=== PATIENT | male | born 1940 | race Caucasian/White ===

== ENCOUNTER 2017-06-09 00:03 | Inpatient (IN) | payer MEDICAID ==
--- NOTE | 2017-06-09 01:03 | ED Physician Chart ---
ED Chief Complaint/HPI - Patient Information Date Seen:: 06/09/17 Time Seen:: 00:40 Chief Complaint:: mass over the proximal clavicle History of Present Illness:: Asians had a painful mass overuse proximal left clavicle for last 1 month for which she's been seen at [facility]. Patient's apparently refusing to eat because of the pain associated with this mass. 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 Allergies:: Allergies Allergy/AdvReac Type Severity Reaction Status Date / Time No Known Allergies Allergy Verified 06/09/17 00:23 Vitals:: Vital Signs - 8 hr 06/09/17 00:05 Temp 98.7 F HR 98 RR 18 BP 111/62 O2 Sat % 96 Historian:: Patient Review:: Transfer documents Reviewed ED Review of Systems - Review of Systems General/Constitutional: No fever, No chills, No weight loss, No weakness, No diaphoresis, No edema, No loss of appetite Skin: No skin lesions, No rash, No bruising Head: No headache, No light-headedness Eyes: No loss of vision, No pain, No diplopia ENT: No earache, No nasal drainage, No sore throat, No tinnitus Neck: No neck pain, No swelling, No thyromegaly, No stiffness, No mass noted Cardio Vascular: No chest pain, No palpitations, No PND, No orthopnea, No edema Pulmonary: No SOB, No cough, No sputum, No wheezing, Other (see history and physical) GI: No nausea, No vomiting, No diarrhea, No pain, No melena, No hematochezia, No constipation, No hematemesis G/U: No dysuria, No frequency, No hematuria Musculoskeletal: No bone or joint pain, No back pain, No muscle pain Endocrine: No polyuria, No polydipsia Psychiatric: No prior psych history, No depression, No anxiety, No suicidal ideation Hematopoietic: No bruising, No lymphadenopathy Allergic/Immuno: No urticaria, No angioedema Neurological: No syncope, No focal symptoms, No weakness, No paresthesia, No headache, No seizure, No dizziness, No confusion, No vertigo ED Past Medical History - Past Medical History Past Medical History: HTN, DM, Asthma/COPD, Dementia Family History: Other (unavailable) Social History: Care Facility Surgical History: other (renal transplant; partial amputation left foot) Psychiatricy History: Dementia Family Medical History - Family Member Father History Unknown: Yes Ethnicity: Living Status: Hx Family Diabetes: Yes ED Physical Exam - Physical Examination General/Constitutional: Well-developed, well-nourished, Alert, No distress Other Gen/Cons comments:: Easy unlabored respirations Head: Atraumatic Eyes: Lids, conjuctiva normal Skin: No rash Other Skin comments:: About 3.5 x 2.5 cm swelling over the proximal left clavicle; no redness of the overlying skin ENMT: External ears, nose nl Other ENMT comments:: Please decayed to the gumline Neck: No nuchal rigidity Respiratory: Nl effort/Exclusion, Clear to Auscultation, No Wheeze/Rhonchi/Rales Other Respiratory comments:: Breath sounds decreased Cardio Vascular: RRR, No murmur, gallop, rubs, NL S1 S2 GI: No tenderness/rebounding/guarding, No organomegaly, No hernia, Normal BS's, Nondistended, No mass/bruits, No McBurney tenderness Extremities: Normal digits & nails Other Extremities comments:: Partial amputation left foot Neuro/Psych: No focal deficits ED Labs/Radiology/EKG Results - Lab Results Results: Laboratory Results - last 24 hr 06/09/17 06/09/17 06/09/17 00:56 00:56 00:56 WBC 14.1 H RBC 3.87 Hgb 10.4 L Hct 31.2 L MCV 80.8 MCH 26.8 L MCHC Differential 33.1 RDW 15.3 Plt Count 407 H MPV 7.1 Neutrophils % 77.0 Lymphocytes % 15.0 L Monocytes % 5.6 Eosinophils % 1.5 Basophils % 0.9 PT 11.8 H INR 1.12 PTT (Actin FS) 28.6 Sodium 134 L Potassium 4.1 Chloride 103 Carbon Dioxide 24.4 Anion Gap 10.7 BUN 22 Creatinine 0.8 Est GFR ( Amer) TNP Est GFR (Non-Af Amer) TNP BUN/Creatinine Ratio 27.5 Glucose 164 H Whole Bld Lactic Acid Calcium 9.2 06/09/17 Unknown WBC RBC Hgb Hct MCV MCH MCHC Differential RDW Plt Count MPV Neutrophils % Lymphocytes % Monocytes % Eosinophils % Basophils % PT INR PTT (Actin FS) Sodium Potassium Chloride Carbon Dioxide Anion Gap BUN Creatinine Est GFR ( Amer) Est GFR (Non-Af Amer) BUN/Creatinine Ratio Glucose Whole Bld Lactic Acid 0.80 Calcium - Radiology Results Results: Chest x-ray normal ED Septic Shock - . Is Septic Shock (SBP<90, OR Lactate>4 mmol\L) present?: No - <6hrs of presentation: Vital Signs: Vital Signs - 8 hr 06/09/18 00:05 Temp 98.7 F HR 98 RR 18 BP 111/62 O2 Sat % 96 ED Reassessment (Disposition) - Reassessment Reassessment Condition:: Unchanged - Diagnosis Diagnosis:: Possible osteomyelitis sternal manubrium; status post partial resection left foot; status post renal transplant; diabetes; hypertension - Patient Disposition Spoke to:: Napoleon James Admitting Medical Physician:: Hernan James Condition at Disposition:: Stable, Unchanged
[2017-06-09 01:11] LABS: % BASOPHILS 0.9 % (0.0-2.0); % EOSINOPHILS 1.5 % (0.0-5.0); % MONOCYTES 5.6 % (2.0-10.0); BASOPHILE ABSOLUTE 0.1 Th/cumm (0-0.2); EOSINOPHILE ABSOLUTE 0.2 Th/cmm (0.1-0.4); HEMATOCRIT 31.2 % (41.0-60); HEMOGLOBIN 10.4 gm/dL (12-16); LYMPHOCYTE ABSOLUTE 2.1 Th/cmm (1.5-3.0); MEAN CELL VOLUME 80.8 fl (80-99); MEAN CORPUSCULAR HEMOGLOBIN 26.8 pg (27.0-31.0); MEAN CORPUSCULAR HGB CONC 33.1 pg (28.0-36.0); MEAN PLATELET VOLUME 7.1 fl; MONOCYTE ABSOLUTE 0.8 Th/cmm (0.3-1.0); NEUTROPHILE ABSOLUTE 10.9 Th/cmm (1.8-8.0); PLATELET COUNT 407 Th/cmm (150-400); RED BLOOD COUNT 3.87 Mil/cmm (3.80-5.80); RED CELL DISTRIBUTION WIDTH 15.3 % (11.5-20.0)
[2017-06-09 01:16] LABS: WHITE BLOOD COUNT 14.1 Th/cmm (4.8-10.8)
[2017-06-09 01:31] LABS: INR 1.12 (0.5-1.4); PROTHROMBIN TIME (TEST) 11.8 SECONDS (9.5-11.5)
[2017-06-09 01:34] LABS: ANION GAP 10.7 (7.0-16.0); BUN - UREA NITROGEN 22 mg/dL (7-25); CALCIUM SERUM 9.2 mg/dL (8.6-10.3); CARBON DIOXIDE 24.4 mEq/L (21.0-31.0); CHLORIDE 103 mEq/L (98-107); CREATININE - SERUM 0.8 mg/dL (0.7-1.3); GLUCOSE 164 mg/dL (70-105); POTASSIUM SERUM 4.1 mEq/L (3.5-5.1); SODIUM SERUM 134 mEq/L (136-145)
[2017-06-09 05:04] VITALS: BP 110/53
[2017-06-09] MEDS: Hydrocodone/APAP 5mg/325mg Tab PO PRN ×2 (05:39→21:34)
[2017-06-09] MEDS ORDERED: Pneumococcal Vaccine 0.5 mL Vial IM ONE (06:11)
[2017-06-09 07:32] LABS: % BASOPHILS 0.4 % (0.0-2.0); % LYMPHOCYTES 12.1 % (20.0-50.0); % MONOCYTES 5.9 % (2.0-10.0); % NEUTROPHILS 80.6 % (40.0-80.0); BASOPHILE ABSOLUTE 0.1 Th/cumm (0-0.2); EOSINOPHILE ABSOLUTE 0.1 Th/cmm (0.1-0.4); HEMATOCRIT 31.5 % (41.0-60); HEMOGLOBIN 10.3 gm/dL (12-16); LYMPHOCYTE ABSOLUTE 1.6 Th/cmm (1.5-3.0); MEAN CELL VOLUME 81.2 fl (80-99); MEAN CORPUSCULAR HEMOGLOBIN 26.7 pg (27.0-31.0); MEAN CORPUSCULAR HGB CONC 32.8 pg (28.0-36.0); MEAN PLATELET VOLUME 7.6 fl; MONOCYTE ABSOLUTE 0.8 Th/cmm (0.3-1.0); NEUTROPHILE ABSOLUTE 10.7 Th/cmm (1.8-8.0); PLATELET COUNT 405 Th/cmm (150-400); RED BLOOD COUNT 3.88 Mil/cmm (3.80-5.80); RED CELL DISTRIBUTION WIDTH 15.4 % (11.5-20.0)
[2017-06-09 07:37] LABS: WHITE BLOOD COUNT 13.3 Th/cmm (4.8-10.8)
--- NOTE | 2017-06-09 07:44 | Diagnostic Imaging Report ---
CHEST X-RAY: AP view INDICATION: Pain, Questionable mass proximal clavicle COMPARISON: None FINDINGS: Chronic lung changes are noted with areas of subsegmental atelectasis versus scarring. No focal consolidation or effusions. Heart size is normal. Atherosclerosis is noted. Degenerative changes of spine are noted with scoliosis. Note that the distal left clavicle is incompletely visualized. No evidence of gross osseous clavicular lesions. IMPRESSION: Chronic lung changes with areas of subsegmental atelectasis versus scarring. No focal consolidation identified. No obvious clavicular masses. Note that the distal left clavicle is incompletely visualized. Note that the supraclavicular regions are also incompletely visualized. If there is continued concern for a mass, further assessment with CT or MRI may also be obtained.
[2017-06-09 07:50] LABS: ALB/GLOB RATIO 0.7 (1.0-1.8); ALKALINE PHOSPHATASE 127 U/L (34-104); ANION GAP 13.1 (7.0-16.0); BILIRUBIN,TOTAL 0.5 mg/dL (0.3-1.0); BUN - UREA NITROGEN 22 mg/dL (7-25); CALCIUM SERUM 9.2 mg/dL (8.6-10.3); CARBON DIOXIDE 24.2 mEq/L (21.0-31.0); CHLORIDE 103 mEq/L (98-107); CHOLESTEROL 79 mg/dL (<200); CREATININE - SERUM 0.8 mg/dL (0.7-1.3); GLUCOSE 178 mg/dL (70-105); HDL -HIGH DENSITY LIPOPROTEIN 32 mg/dL (23-92); POTASSIUM SERUM 4.3 mEq/L (3.5-5.1); SGOT 14 U/L (13-39); SGPT/ALT 8 U/L (7-52); SODIUM SERUM 136 mEq/L (136-145); TOTAL PROTEIN,SERUM 7.2 gm/dL (6.0-8.3); TRIGLYCERIDES 85 mg/dL (<150)
--- NOTE | 2017-06-09 08:25 | History and Physical ---
History of Present Illness - HPI Chief Complaint: chest wall mass to left clavicle region HPI: 76 y/o male who presents to [facility] for a Left neck/upper chest wall mass noted at the [facility]. The ER physician had seen the patient intially and states "painful mass overuse proximal left clavicle for last 1 month for which she's been seen at [facility]. Patient's apparently refusing to eat because of the pain associated with this mass. 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 Lab Results Results: Laboratory Results - last 24 hr 06/09/17 06/09/17 06/09/17 00:56 00:56 00:56 WBC 14.1 H RBC 3.87 Hgb 10.4 L Hct 31.2 L MCV 80.8 MCH 26.8 L MCHC Differential 33.1 RDW 15.3 Plt Count 407 H MPV 7.1 Neutrophils % 77.0 Lymphocytes % 15.0 L Monocytes % 5.6 Eosinophils % 1.5 Basophils % 0.9 PT 11.8 H INR 1.12 PTT (Actin FS) 28.6 Sodium 134 L Potassium 4.1 Chloride 103 Carbon Dioxide 24.4 Anion Gap 10.7 BUN 22 Creatinine 0.8 Est GFR ( Amer) TNP Est GFR (Non-Af Amer) TNP BUN/Creatinine Ratio 27.5 Glucose 164 H Whole Bld Lactic Acid Calcium 9.2 06/09/17 Unknown WBC RBC Hgb Hct MCV MCH MCHC Differential RDW Plt Count MPV Neutrophils % Lymphocytes % Monocytes % Eosinophils % Basophils % PT INR PTT (Actin FS) Sodium Potassium Chloride Carbon Dioxide Anion Gap BUN Creatinine Est GFR ( Amer) Est GFR (Non-Af Amer) BUN/Creatinine Ratio Glucose Whole Bld Lactic Acid 0.80 Calcium - Past Medical History Past Medical History: HTN, DM, Asthma/COPD, Dementia Family History: Other (unavailable) Social History: Care Facility Surgical History: other (renal transplant; partial amputation left foot) Psychiatricy History: Dementia Family Medical History - Family Member Father History Unknown: Yes Ethnicity: Living Status: Hx Family Diabetes: Yes Patient was subsequently admitted to [facility] for further evaluation and treatment. Vital Signs: Last Vital Signs Temp 96.8 F 06/09/17 07:49 Pulse 91 06/09/17 07:49 Resp 19 06/09/17 07:49 BP 118/60 06/09/17 07:49 Pulse Ox 97 06/09/17 07:49 Past Medical History Cardiovascular: Report: HTN Pulmonary: Report: No Pertinent Hx [employer]: Report: No Pertinent Hx GI: Report: No Pertinent Hx Psych: Report: No Pertinent Hx Musculoskeletal: Report: Other (chest wall mass) Renal/: Report: Other (s/p renal transplant) Endocrine: Report: Diabetes Dermatology: Report: No Pertinent Hx Family Medical History - Family Member Father History Unknown: Yes Ethnicity: Living Status: Hx Family Diabetes: Yes Social History Smoke: No Alcohol: None Drugs: None Lives: Group Home - Medications Home Medications: Home Medication Medication Instructions Recorded Type Gabapentin [Neurontin*] 300 mg PO TID 07/08/14 History Glipizide [Glucotrol] 5 mg PO BID 07/08/14 History Hydrocodone/Acetaminophen [[place] 1 tab PO Q6HR PRN 07/08/14 History 325 mg-5 mg*] Insulin Human Regular [humuLIN R] 0 units SUBQ ACHS 07/08/14 History Multivitamin [Theragran] 1 tab PO DAILY 07/08/14 History Omeprazole [Prilosec] 20 mg PO BIDAC 07/08/14 History metFORMIN [Glucophage] 850 mg PO BID 07/08/14 History Ascorbic Acid [Vitamin C] 500 mg PO DAILY 06/09/17 History Atorvastatin Calcium [Lipitor] 10 mg PO DAILY 06/09/17 History Baclofen [Lioresal*] 10 mg PO TID 06/09/17 History Clonidine HCl [Catapres] 0.1 mg PO Q6HR PRN 06/09/17 History Hydrocodone/Acetaminophen [[place] 2 each PO Q4HR PRN 06/09/17 History 325 mg-5 mg*] Meloxicam 15 mg PO DAILY 06/09/17 History Ondansetron HCl [Zofran*] 4 mg PO Q4HR PRN 06/09/17 History Potassium Chloride 20 meq PO BID 06/09/17 History - Allergies Allergies/Adverse Reactions: Allergies Allergy/AdvReac Type Severity Reaction Status Date / Time No Known Allergies Allergy Verified 06/09/17 00:23 Review of Systems - Review of Systems Constitutional: Report: No Significant Eyes: Report: No Significant ENT: Report: No Significant Respiratory: Report: No Significant Cardiovascular: Report: No Significant Gastrointestinal: Report: No Significant Genitourinary: Report: No Significant Musculoskeletal: Report: No Significant Skin: Report: Other (neck mass left side) Neurological: Report: No Significant - Lab Results All Lab Results last 24 hours: Laboratory Results - last 24 hr 06/09/17 06/09/17 06/09/17 06:24 07:05 07:05 WBC 13.3 H RBC 3.88 Hgb 10.3 L Hct 31.5 L MCV 81.2 MCH 26.7 L MCHC Differential 32.8 RDW 15.4 Plt Count 405 H MPV 7.6 Neutrophils % 80.6 H Lymphocytes % 12.1 L Monocytes % 5.9 Eosinophils % 1.0 Basophils % 0.4 Sodium 136 Potassium 4.3 Chloride 103 Carbon Dioxide 24.2 Anion Gap 13.1 BUN 22 Creatinine 0.8 Est GFR ( Amer) TNP Est GFR (Non-Af Amer) TNP BUN/Creatinine Ratio 27.5 Glucose 178 H POC Glucose 160 H Whole Bld Lactic Acid Calcium 9.2 Total Bilirubin 0.5 AST 14 ALT 8 Alkaline Phosphatase 127 H Total Protein 7.2 Albumin 3.0 L Globulin 4.2 Albumin/Globulin Ratio 0.7 L Triglycerides 85 Cholesterol 79 LDL Cholesterol Direct 30 L HDL Cholesterol 32 06/09/17 Unknown WBC RBC Hgb Hct MCV MCH MCHC Differential RDW Plt Count MPV Neutrophils % Lymphocytes % Monocytes % Eosinophils % Basophils % Sodium Potassium Chloride Carbon Dioxide Anion Gap BUN Creatinine Est GFR ( Amer) Est GFR (Non-Af Amer) BUN/Creatinine Ratio Glucose POC Glucose Whole Bld Lactic Acid 0.80 Calcium Total Bilirubin AST ALT Alkaline Phosphatase Total Protein Albumin Globulin Albumin/Globulin Ratio Triglycerides Cholesterol LDL Cholesterol Direct HDL Cholesterol - Assessment Assessment: neck mass left side DM HTN leukocytosis right knee mass - Plan Plan: Chest CT ID consult Surgical consult repeat CBC,CMP Vancomycin per pharmacy IV fluids continue home meds. PT eval right knee xray ortho consult
[2017-06-09] MEDS ORDERED: D5-0.9%NS 1,000 ML IV SCH (08:30)
[2017-06-09] MEDS ORDERED: Non-Formulary Item 1 EA (Meloxicam [Meloxicam] 15 MG) PO SCH (09:00)
[2017-06-09] MEDS ORDERED: Atorvastatin Calcium 10 MG TAB PO SCH (09:00)
[2017-06-09] MEDS: INSULIN ASPART SLIDING SCALE 100 UNITS/ML UNIT SUBQ SCH ×4 (09:05→22:11)
[2017-06-09] MEDS: Pantoprazole 40 mg EC Tab PO SCH ×2 (09:17→16:30)
[2017-06-09] MEDS: Potassium Chloride 20 mEq ER Tab PO SCH ×2 (09:41→16:30)
[2017-06-09] MEDS: Multivitamin Tab PO SCH (09:41)
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
[2017-06-09 10:55] LABS: URINE MICROSCOPIC INDICATED? YES; URINE SOURCE RANDOM
[2017-06-09 10:59] LABS: URINE BILIRUBIN SMALL (NEGATIVE); URINE BLOOD NEGATIVE (NEGATIVE); URINE GLUCOSE (UA) NEGATIVE (NEGATIVE); URINE KETONE 15 mg/dL (NEGATIVE); URINE LEUKOCYTE ESTERASE NEGATIVE (NEGATIVE); URINE NITRATE NEGATIVE (NEGATIVE); URINE PH 5.5 (4.6 - 8.0); URINE PROTEIN TRACE mg/dL (NEGATIVE); URINE UROBILINOGEN 0.2 E.U./dL (0.2 - 1.0)
[2017-06-09 11:00] LABS: URINE CLARITY HAZY (CLEAR); URINE COLOR YELLOW
[2017-06-09 11:02] LABS: URINE BACTERIA FEW /hpf (NONE SEEN); URINE EPITHELIAL CELLS FEW /lpf (FEW)
--- NOTE | 2017-06-09 11:02 | Diagnostic Imaging Report ---
Right femur (2 views) HISTORY: Pain There is a somewhat bowed contour of the proximal femoral shaft. Findings consistent with a chronic etiology. No acute bony abnormalities. There is suggestion of a round soft tissue density adjacent to the anterior medial aspect of the distal femoral shaft. An MRI exam or CT scan would provide additional assessment and evaluation. IMPRESSION: 1. Suggestion of a round soft tissue mass within the soft tissues adjacent to the anterior medial aspect of the distal femoral shaft. Etiology uncertain. An MRI exam or CT scan would provide additional characterization and assessment. 2. Somewhat bowed contour of the proximal femoral shaft consistent with a chronic etiology.
[2017-06-09 11:03] LABS: URINE YEAST FEW /hpf (NONE SEEN)
--- NOTE | 2017-06-09 11:03 | Diagnostic Imaging Report ---
Right knee (2 views) HISTORY: Mass. The exam demonstrates a relatively large somewhat hyperdense mass within the soft tissues adjacent to the anterior medial aspect of the distal femur. Etiology uncertain. A CT scan or MRI examination provide additional assessment and evaluation. No acute bony amenities. No fractures. IMPRESSION: 1. Findings consistent with a soft tissue mass adjacent to the anterior medial aspect of the distal femur. Exact etiology uncertain. An MRI examination or CT scan would provide additional assessment and evaluation.
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
[2017-06-09] MEDS ORDERED: cefTRIAXone 2 GM in Sodium Chloride 0.9% 100 ML IV SCH (11:30)
--- NOTE | 2017-06-09 11:40 | General Progress Note ---
Subjective - Review of Systems Service Date: 06/09/17 Events since last encounter: chart reviewed CT scans noted bone scan left sterno-clavicular junction ordered shaun to obtain record from [facility] Objective - Results Result Diagrams: 06/09/17 07:05 06/09/17 07:05 Recent Labs: Laboratory Last Values WBC 13.3 Th/cmm (4.8-10.8) H 06/09/17 07:05 RBC 3.88 Mil/cmm (3.80-5.80) 06/09/17 07:05 Hgb 10.3 gm/dL (12-16) L 06/09/17 07:05 Hct 31.5 % (41.0-60) L 06/09/17 07:05 MCV 81.2 fl (80-99) 06/09/17 07:05 MCH 26.7 pg (27.0-31.0) L 06/09/17 07:05 MCHC Differential 32.8 pg (28.0-36.0) 06/09/17 07:05 RDW 15.4 % (11.5-20.0) 06/09/17 07:05 Plt Count 405 Th/cmm (150-400) H 06/09/17 07:05 MPV 7.6 fl 06/09/17 07:05 Neutrophils % 80.6 % (40.0-80.0) H 06/09/17 07:05 Lymphocytes % 12.1 % (20.0-50.0) L 06/09/17 07:05 Monocytes % 5.9 % (2.0-10.0) 06/09/17 07:05 Eosinophils % 1.0 % (0.0-5.0) 06/09/17 07:05 Basophils % 0.4 % (0.0-2.0) 06/09/17 07:05 PT 11.8 SECONDS (9.5-11.5) H 06/09/17 00:56 INR 1.12 (0.5-1.4) 06/09/17 00:56 PTT (Actin FS) 28.6 SECONDS (26.0-38.0) 06/09/17 00:56 Sodium 136 mEq/L (136-145) 06/09/17 07:05 Potassium 4.3 mEq/L (3.5-5.1) 06/09/17 07:05 Chloride 103 mEq/L (98-107) 06/09/17 07:05 Carbon Dioxide 24.2 mEq/L (21.0-31.0) 06/09/17 07:05 Anion Gap 13.1 (7.0-16.0) 06/09/17 07:05 BUN 22 mg/dL (7-25) 06/09/17 07:05 Creatinine 0.8 mg/dL (0.7-1.3) 06/09/17 07:05 Est GFR ( Amer) TNP 06/09/17 07:05 Est GFR (Non-Af Amer) TNP 06/09/17 07:05 BUN/Creatinine Ratio 27.5 06/09/17 07:05 Glucose 178 mg/dL (70-105) H 06/09/17 07:05 POC Glucose 160 MG/DL (70 - 105) H 06/09/17 06:24 Whole Bld Lactic Acid 0.80 mmol/L (0.60-1.99) 06/09/17 Unknown Calcium 9.2 mg/dL (8.6-10.3) 06/09/17 07:05 Total Bilirubin 0.5 mg/dL (0.3-1.0) 06/09/17 07:05 AST 14 U/L (13-39) 06/09/17 07:05 ALT 8 U/L (7-52) 06/09/17 07:05 Alkaline Phosphatase 127 U/L (34-104) H 06/09/17 07:05 Total Protein 7.2 gm/dL (6.0-8.3) 06/09/17 07:05 Albumin 3.0 gm/dL (4.2-5.5) L 06/09/17 07:05 Globulin 4.2 gm/dL 06/09/17 07:05 Albumin/Globulin Ratio 0.7 (1.0-1.8) L 06/09/17 07:05 Triglycerides 85 mg/dL (<150) 06/09/17 07:05 Cholesterol 79 mg/dL (<200) 06/09/17 07:05 LDL Cholesterol Direct 30 mg/dL (75-193) L 06/09/17 07:05 HDL Cholesterol 32 mg/dL (23-92) 06/09/17 07:05 TSH 0.51 uIU/ml (0.34-5.60) 06/09/17 07:05 Urine Source RANDOM 06/09/17 10:02 Urine Color YELLOW 06/09/17 10:02 Urine Clarity HAZY (CLEAR) 06/09/17 10:02 Urine pH 5.5 (4.6 - 8.0) 06/09/17 10:02 Ur Specific [place] >= 1.030 (1.005-1.030) 06/09/17 10:02 Urine Protein TRACE mg/dL (NEGATIVE) 06/09/17 10:02 Urine Glucose (UA) NEGATIVE mg/dL (NEGATIVE) 06/09/17 10:02 Urine Ketones 15 mg/dL (NEGATIVE) H 06/09/17 10:02 Urine Blood NEGATIVE (NEGATIVE) 06/09/17 10:02 Urine Nitrate NEGATIVE (NEGATIVE) 06/09/17 10:02 Urine Bilirubin SMALL (NEGATIVE) H 06/09/17 10:02 Urine Urobilinogen 0.2 E.U./dL (0.2 - 1.0) 06/09/17 10:02 Ur Leukocyte Esterase NEGATIVE (NEGATIVE) 06/09/17 10:02 Urine RBC 2-5 /hpf (0-5) H 06/09/17 10:02 Urine WBC 6-10 /hpf (0-5) 06/09/17 10:02 Ur Epithelial Cells FEW /lpf (FEW) 06/09/17 10:02 Calcium Oxalate Crystal MODERATE /hpf 06/09/17 10:02 Urine Bacteria FEW /hpf (NONE SEEN) 06/09/17 10:02 Urine Yeast FEW /hpf (NONE SEEN) H 06/09/17 10:02 - Physical Exam Vitals and I&O: Vital Signs Temp 96.8 F 06/09/17 07:49 Pulse 91 06/09/17 07:49 Resp 19 06/09/17 07:49 BP 118/60 06/09/17 07:49 Pulse Ox 97 06/09/17 07:49 Intake & Output 06/08/17 06/09/17 06/09/17 18:59 06:59 18:59 Intake Total 300 Output Total 200 Balance 100 Weight (lbs) 72.575 kg 72.575 kg Intake: Oral 300 Output: Urine 200 Other: # Voids 2 # Bowel Movements 1 Stool Characteristics Soft Weight Source Bedscale Bedscale Active Medications: Current Medications Acetaminophen/Hydrocodone Bitart ([place] 5mg/325mg) 2 tab PO Q4HR PRN PRN Reason: Pain (Severe) Stop: 08/08/17 04:35 Last Admin: 06/09/17 05:39 Dose: 2 tab Ascorbic Acid (Vitamin C) 500 mg PO DAILY [facility] Stop: 08/08/17 08:59 Last Admin: 06/09/17 09:41 Dose: 500 mg Baclofen (Lioresal) 10 mg PO TID [facility] Stop: 08/08/17 08:59 Last Admin: 06/09/17 09:41 Dose: 10 mg Gabapentin (Neurontin) 300 mg PO TID [facility] Stop: 08/08/17 08:59 Last Admin: 06/09/17 09:41 Dose: 300 mg Glipizide (Glucotrol) 5 mg PO BID [facility] Stop: 08/08/17 08:59 Last Admin: 06/09/17 09:41 Dose: 5 mg Dextrose/Sodium Chloride (D5-0.9%Ns) 1,000 mls @ 50 mls/hr IV .Q20H [facility] Stop: 08/08/17 08:29 Last Admin: 06/09/17 10:07 Dose: 50 mls/hr Vancomycin HCl 1.25 gm/ Sodium (Chloride) 250 mls @ 165 mls/hr IV Q18H [facility] Stop: 08/08/17 20:59 Ceftriaxone Sodium 2 gm/ (Sodium Chloride) 100 mls @ 100 mls/hr IV Q24H [facility] Stop: 08/08/17 11:29 Insulin Aspart (Novolog Insulin Sliding Scale) 0 units SUBQ ACHS [facility] PRN Reason: Protocol Stop: 08/08/17 07:29 Last Admin: 06/09/17 09:05 Dose: Not Given Miscellaneous (Meloxicam [Meloxicam]) 15 mg PO DAILY [facility] Stop: 08/08/17 08:59 Miscellaneous (Vancomycin Iv Per Pharmacy) 1 ea [facility] PRN PRN PRN Reason: PROTOCOL Stop: 08/08/17 04:45 Multivitamins/Vitamin C (Theragran) 1 tab PO DAILY [facility] Stop: 08/08/17 08:59 Last Admin: 06/09/17 09:41 Dose: 1 tab Ondansetron HCl (Zofran) 4 mg IV Q6H PRN PRN Reason: Nausea / Vomiting Stop: 08/08/17 08:16 Pantoprazole Sodium (Protonix) 40 mg PO BIDAC [facility] Stop: 08/08/17 07:29 Last Admin: 06/09/17 09:17 Dose: 40 mg Potassium Chloride (Klor-Con) 20 meq PO BID [facility] Stop: 08/08/17 08:59 Last Admin: 06/09/17 09:41 Dose: 20 meq
--- NOTE | 2017-06-09 19:05 | Consultation ---
DATE OF CONSULTATION: HEMATOLOGY ONCOLOGY CONSULTATION REASON FOR CONSULTATION: Possible lymphoma. REFERRING PHYSICIAN: Dr. James and Dr. Nguyễn Moran. HISTORY OF PRESENT ILLNESS: The patient is a 76-year-old male with history of diabetes, COPD, hypertension. He was recently diagnosed with osteomyelitis of the left sternoclavicular joint and treated with multiple courses of antibiotics. Apparently antibiotics were started prior to taking any blood cultures per the records from [facility]. HOME MEDICATIONS: Glipizide, gabapentin, [place], insulin, metformin, atorvastatin, baclofen, and Zofran. MEDICATIONS: From the hospital reviewed. SOCIAL HISTORY: Never smoker. PHYSICAL EXAMINATION: GENERAL: The patient is awake, not in distress. VITAL SIGNS: Stable. HEENT: Atraumatic. NECK: No neck lymphadenopathy. There is swelling in the left sternoclavicular joint without overlying skin erythema. CHEST: Equal air entry. ABDOMEN: Soft. Scar of previous surgery. No organomegaly. No peripheral lymphadenopathy. EXTREMITIES: Left transmetatarsal amputation. ASSESSMENT: Sternoclavicular joint osteomyelitis. Case was discussed with Dr. Nguyễn Moran, the ID specialist and lymphoma is a considering the elevation of the infection; therefore I will proceed with CT scan of the abdomen and pelvis and LDH. No lymphadenopathy is detected. I will consider bone marrow biopsy for further evaluation. Thank you for the opportunity to participate in the care of this interesting patient. JOB# [id number]
[2017-06-10 06:17] LABS: % BASOPHILS 0.4 % (0.0-2.0); % EOSINOPHILS 2.4 % (0.0-5.0); % LYMPHOCYTES 15.1 % (20.0-50.0); % MONOCYTES 6.7 % (2.0-10.0); % NEUTROPHILS 75.4 % (40.0-80.0); EOSINOPHILE ABSOLUTE 0.3 Th/cmm (0.1-0.4); HEMATOCRIT 29.8 % (41.0-60); LYMPHOCYTE ABSOLUTE 1.6 Th/cmm (1.5-3.0); MEAN CELL VOLUME 80.2 fl (80-99); MEAN CORPUSCULAR HGB CONC 33.7 pg (28.0-36.0); MEAN PLATELET VOLUME 7.5 fl; MONOCYTE ABSOLUTE 0.7 Th/cmm (0.3-1.0); NEUTROPHILE ABSOLUTE 8.2 Th/cmm (1.8-8.0); PLATELET COUNT 408 Th/cmm (150-400); RED BLOOD COUNT 3.71 Mil/cmm (3.80-5.80); RED CELL DISTRIBUTION WIDTH 15.3 % (11.5-20.0); WHITE BLOOD COUNT 10.8 Th/cmm (4.8-10.8)
[2017-06-10 06:31] LABS: ALB/GLOB RATIO 0.8 (1.0-1.8); ALKALINE PHOSPHATASE 119 U/L (34-104); ANION GAP 10.2 (7.0-16.0); BILIRUBIN,TOTAL 0.4 mg/dL (0.3-1.0); BUN - UREA NITROGEN 18 mg/dL (7-25); CALCIUM SERUM 9.3 mg/dL (8.6-10.3); CARBON DIOXIDE 25.5 mEq/L (21.0-31.0); CHLORIDE 106 mEq/L (98-107); CREATININE - SERUM 0.7 mg/dL (0.7-1.3); LDH = LACTIC DEHYDROGENASE 118 U/L (140-271); POTASSIUM SERUM 4.7 mEq/L (3.5-5.1); SGOT 13 U/L (13-39); SGPT/ALT 7 U/L (7-52); SODIUM SERUM 137 mEq/L (136-145); TOTAL PROTEIN,SERUM 6.9 gm/dL (6.0-8.3)
[2017-06-10 06:33] LABS: GLUCOSE 102 mg/dL (70-105)
[2017-06-10] MEDS: Pantoprazole 40 mg EC Tab PO SCH ×2 (06:35→18:17)
[2017-06-10] MEDS: INSULIN ASPART SLIDING SCALE 100 UNITS/ML UNIT SUBQ SCH ×4 (06:35→20:22)
[2017-06-10 06:48] LABS: ESR SEDIMENTATION SED RATE 90 mm/hr (0-20)
--- NOTE | 2017-06-10 08:15 | Consultation ---
DATE OF CONSULTATION: 06/10/2017 PHYSICIAN: Dr. James. DIRECT SALES CONSULTANT: Dr. Robison. TYPE OF THE REPORT: Psychiatric consult. REASON FOR THE CONSULT: Depression. HISTORY OF PRESENT ILLNESS: The patient was admitted to the hospital because of a mass in left clavicle region. The patient also complained of pain in his neck. The patient has been anxious and depressed and Dr. James asked me to evaluate the patient. The patient is slow to respond and he seems to be anxious and depressed. The patient is still complaining of pain in the back of his neck and he was pointing out to the area where the pain is. He also said that he has been anxious and has been depressed. The patient has a diagnosis of osteomyelitis of the left sternoclavicular joint and he was treated with antibiotics multiple times. The patient also has been taking her gabapentin. PAST PSYCHIATRIC HISTORY: None. PAST MEDICAL HISTORY: As above and the patient also has insulin-dependent diabetes mellitus. SOCIAL HISTORY: The patient said that he has 5 children and lives with his family. No alcohol or drug use. MENTAL STATUS EXAM: The patient appears his stated age. Anxious. Flat affect. Depressed mood. Low tone and rate of speech. Thought processes mainly goal directed. The patient denies hallucinations or delusions and denies suicide or homicide. The patient is alert and oriented to situation, but not to place or person. Impaired immediate and recent memory, but intact remote memory and he did remember his date. Poor insight and judgment. ASSESSMENT AND PRIMARY DIAGNOSIS: Depressive disorder, unspecified. TREATMENT PLAN: We will monitor the patient and reevaluate for possible adding antidepressant medications. We will follow up. Thanks to Dr. James. [facility]# [id number]
--- NOTE | 2017-06-10 08:22 | General Progress Note ---
Subjective - Review of Systems Service Date: 06/10/17 Subjective: patient was seen and examined. No acute distress. afebrile. NPO since midnight. Patient scheduled for MRI chest, CT abd/pelvis and bone scan. Objective - Results Result Diagrams: 06/10/17 05:50 06/10/17 05:50 Recent Labs: Laboratory Last Values WBC 10.8 Th/cmm (4.8-10.8) 06/10/17 05:50 RBC 3.71 Mil/cmm (3.80-5.80) L 06/10/17 05:50 Hgb 10.0 gm/dL (12-16) L 06/10/17 05:50 Hct 29.8 % (41.0-60) L 06/10/17 05:50 MCV 80.2 fl (80-99) 06/10/17 05:50 MCH 27.0 pg (27.0-31.0) 06/10/17 05:50 MCHC Differential 33.7 pg (28.0-36.0) 06/10/17 05:50 RDW 15.3 % (11.5-20.0) 06/10/17 05:50 Plt Count 408 Th/cmm (150-400) H 06/10/17 05:50 MPV 7.5 fl 06/10/17 05:50 Neutrophils % 75.4 % (40.0-80.0) 06/10/17 05:50 Lymphocytes % 15.1 % (20.0-50.0) L 06/10/17 05:50 Monocytes % 6.7 % (2.0-10.0) 06/10/17 05:50 Eosinophils % 2.4 % (0.0-5.0) 06/10/17 05:50 Basophils % 0.4 % (0.0-2.0) 06/10/17 05:50 ESR 90 mm/hr (0-20) H 06/10/17 05:50 PT 11.8 SECONDS (9.5-11.5) H 06/09/17 00:56 INR 1.12 (0.5-1.4) 06/09/17 00:56 PTT (Actin FS) 28.6 SECONDS (26.0-38.0) 06/09/17 00:56 Sodium 137 mEq/L (136-145) 06/10/17 05:50 Potassium 4.7 mEq/L (3.5-5.1) 06/10/17 05:50 Chloride 106 mEq/L (98-107) 06/10/17 05:50 Carbon Dioxide 25.5 mEq/L (21.0-31.0) 06/10/17 05:50 Anion Gap 10.2 (7.0-16.0) 06/10/17 05:50 BUN 18 mg/dL (7-25) 06/10/17 05:50 Creatinine 0.7 mg/dL (0.7-1.3) 06/10/17 05:50 Est GFR ( Amer) TNP 06/10/17 05:50 Est GFR (Non-Af Amer) TNP 06/10/17 05:50 BUN/Creatinine Ratio 25.7 06/10/17 05:50 Glucose 102 mg/dL (70-105) D 06/10/17 05:50 POC Glucose 101 MG/DL (70 - 105) 06/10/17 05:34 Hemoglobin A1c % 9.0 % (4.0-6.0) H 06/09/17 07:05 Whole Bld Lactic Acid 0.80 mmol/L (0.60-1.99) 06/09/17 Unknown Calcium 9.3 mg/dL (8.6-10.3) 06/10/17 05:50 Total Bilirubin 0.4 mg/dL (0.3-1.0) 06/10/17 05:50 AST 13 U/L (13-39) 06/10/17 05:50 ALT 7 U/L (7-52) 06/10/17 05:50 Alkaline Phosphatase 119 U/L (34-104) H 06/10/17 05:50 Lactate Dehydrogenase 118 U/L (140-271) L 06/10/17 05:50 C-Reactive Protein 7.9 mg/dL (0.0-0.9) H 06/09/17 07:05 Total Protein 6.9 gm/dL (6.0-8.3) 06/10/17 05:50 Albumin 3.0 gm/dL (4.2-5.5) L 06/10/17 05:50 Globulin 3.9 gm/dL 06/10/17 05:50 Albumin/Globulin Ratio 0.8 (1.0-1.8) L 06/10/17 05:50 Triglycerides 85 mg/dL (<150) 06/09/17 07:05 Cholesterol 79 mg/dL (<200) 06/09/17 07:05 LDL Cholesterol Direct 30 mg/dL (75-193) L 06/09/17 07:05 HDL Cholesterol 32 mg/dL (23-92) 06/09/17 07:05 TSH 0.51 uIU/ml (0.34-5.60) 06/09/17 07:05 Urine Source RANDOM 06/09/17 10:02 Urine Color YELLOW 06/09/17 10:02 Urine Clarity HAZY (CLEAR) 06/09/17 10:02 Urine pH 5.5 (4.6 - 8.0) 06/09/17 10:02 Ur Specific [place] >= 1.030 (1.005-1.030) 06/09/17 10:02 Urine Protein TRACE mg/dL (NEGATIVE) 06/09/17 10:02 Urine Glucose (UA) NEGATIVE mg/dL (NEGATIVE) 06/09/17 10:02 Urine Ketones 15 mg/dL (NEGATIVE) H 06/09/17 10:02 Urine Blood NEGATIVE (NEGATIVE) 06/09/17 10:02 Urine Nitrate NEGATIVE (NEGATIVE) 06/09/17 10:02 Urine Bilirubin SMALL (NEGATIVE) H 06/09/17 10:02 Urine Urobilinogen 0.2 E.U./dL (0.2 - 1.0) 06/09/17 10:02 Ur Leukocyte Esterase NEGATIVE (NEGATIVE) 06/09/17 10:02 Urine RBC 2-5 /hpf (0-5) H 06/09/17 10:02 Urine WBC 6-10 /hpf (0-5) 06/09/17 10:02 Ur Epithelial Cells FEW /lpf (FEW) 06/09/17 10:02 Calcium Oxalate Crystal MODERATE /hpf 06/09/17 10:02 Urine Bacteria FEW /hpf (NONE SEEN) 06/09/17 10:02 Urine Yeast FEW /hpf (NONE SEEN) H 06/09/17 10:02 - Physical Exam Vitals and I&O: Vital Signs Temp 98.2 F 06/10/17 04:07 Pulse 83 06/10/17 04:07 Resp 17 06/10/17 04:07 BP 114/57 06/10/17 04:07 Pulse Ox 96 06/10/17 04:07 Intake & Output 06/09/17 06/10/17 06/10/17 18:59 06:59 18:59 Intake Total 1000 300 Output Total 200 Balance 800 300 Weight (lbs) 72.575 kg 74.616 kg Intake: Oral 1000 300 Output: Urine 200 Other: # Voids 4 3 # Bowel Movements 3 3 Stool Characteristics Soft Liquid Brown Green Weight Source Bedscale Bedscale Active Medications: Current Medications Acetaminophen/Hydrocodone Bitart ([place] 5mg/325mg) 2 tab PO Q4HR PRN PRN Reason: Pain (Severe) Stop: 08/08/17 04:35 Last Admin: 06/09/17 21:34 Dose: 2 tab Ascorbic Acid (Vitamin C) 500 mg PO DAILY [facility] Stop: 08/08/17 08:59 Last Admin: 06/09/17 09:41 Dose: 500 mg Baclofen (Lioresal) 10 mg PO TID [facility] Stop: 08/08/17 08:59 Last Admin: 06/09/17 21:29 Dose: 10 mg Gabapentin (Neurontin) 300 mg PO TID [facility] Stop: 08/08/17 08:59 Last Admin: 06/09/17 21:29 Dose: 300 mg Glipizide (Glucotrol) 5 mg PO BID [facility] Stop: 08/08/17 08:59 Last Admin: 06/09/17 16:30 Dose: 5 mg Dextrose/Sodium Chloride (D5-0.9%Ns) 1,000 mls @ 50 mls/hr IV .Q20H [facility] Stop: 08/08/17 08:29 Last Admin: 06/09/17 10:07 Dose: 50 mls/hr Vancomycin HCl 1.25 gm/ Sodium (Chloride) 250 mls @ 165 mls/hr IV Q18H [facility] Stop: 08/08/17 20:59 Last Admin: 06/09/17 21:31 Dose: 165 mls/hr Cefepime HCl 2 gm/ Dextrose 100 mls @ 100 mls/hr IV Q12HR [facility] Stop: 08/08/17 20:59 Last Admin: 06/09/17 21:28 Dose: 100 mls/hr Insulin Aspart (Novolog Insulin Sliding Scale) 0 units SUBQ ACHS [facility] PRN Reason: Protocol Stop: 08/08/17 07:29 Last Admin: 06/10/17 06:35 Dose: Not Given Loperamide HCl (Imodium) 4 mg PO Q6H PRN PRN Reason: Diarrhea Stop: 08/08/17 20:48 Last Admin: 06/09/17 21:35 Dose: 4 mg Miscellaneous (Meloxicam [Meloxicam]) 15 mg PO DAILY [facility] Stop: 08/08/17 08:59 Miscellaneous (Vancomycin Iv Per Pharmacy) 1 ea [facility] PRN PRN PRN Reason: PROTOCOL Stop: 08/08/17 04:45 Multivitamins/Vitamin C (Theragran) 1 tab PO DAILY [facility] Stop: 08/08/17 08:59 Last Admin: 06/09/17 09:41 Dose: 1 tab Ondansetron HCl (Zofran) 4 mg IV Q6H PRN PRN Reason: Nausea / Vomiting Stop: 08/08/17 08:16 Pantoprazole Sodium (Protonix) 40 mg PO BIDAC [facility] Stop: 08/08/17 07:29 Last Admin: 06/10/17 06:35 Dose: Not Given Potassium Chloride (Klor-Con) 20 meq PO BID [facility] Stop: 08/08/17 08:59 Last Admin: 06/09/17 16:30 Dose: 20 meq General: Alert, Oriented x3, No acute distress HEENT: Atraumatic, PERRLA, EOMI Neck: Supple Cardiovascular: Regular rate, Normal S1, Normal S2 Lungs: Clear to auscultation Abdomen: Bowel sounds, Soft Neurological: Normal gait, Normal speech Assessment/Plan - Assessment Assessment: neck mass left side 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 PT eval Nutritional Asmnt/Malnutr-PDOC - Dietary Evaluation Malnutrition Findings (Please click <Entered> for more info): Nutritional Asmnt/Malnutrition Start: 06/09/17 15: 36 Text: Status: Complete Freq: Document 06/09/17 15:36 LCHENG (Rec: 06/09/17 15:46 LCHENG [email or web address]) Nutritional Asmnt/Malnutrition Patient General Information Nutritional Screening High Risk Consult Diagnosis neck mass Pertinent Medical Hx/Surgical Hx DM, HTN, asthma/COPD, dementia , renal transplant, partial left foot amputation Subjective Information Consult received for diabetic. Pt seen sitting up in bed at time of visit, wake and alert. Pt stated not hungry today, maybe better appetite tommorrow. Pt has no preference about food, every food is ok for him. Current Diet Order/ Nutrition Support CCHO-60gm Pertinent Medications vit C, D5-0.9%ns, glucotrol, novolog, cangomycin, theragran , protonix, kcl Pertinent Labs 06/09 glucose 164-178, POC 160- 227 Nutritional Hx/Data Height 1.7 m Height (Calculated Centimeters) 170.2 Current Weight (lbs) 72.575 kg Weight (Calculated Kilograms) 72.6 Weight (Calculated Grams) 37999.8 [place] Body Weight 148 Body Mass Index (BMI) 25.0 Weight Status Overweight GI Symptoms GI Symptoms None Last BM 06/09 Difficult in: None Skin Integrity/Comment: abrasion to left arm, lump to right knee, left upper neck Estimated Nutritional Goals BEE in Kcals: Using Current wt Calories/Kcals/Kg 23-27 Kcals Calculated 8526-8432 Protein: Using Current wt Protein g/k Protein Calculated 73 Fluid: ml 1679-2336ml (1ml/kcal) Nutritional Problem 1. Problem Problem altered nutrition related labs Etiology hx of DM Signs/Symptoms: glucose 164-178, POC 160-227 Malnutrition Alert Protein-Calorie Malnutrition N/A Is there a minimum of two criteria No selected? Query Text:Check all the applicable criteria. A minimum of two criteria are recommended for diagnosis of either severe or non-severe malnutrition. Intervention/Recommendation Comments 1. Continue with CCHO-60gm diet as ordered. Encouraged oral intake and balanced meal. 2. Monitor PO intake, wt, labs and skin integrity 3. F/U as moderate risk in 3-5 days, 06/12-06/14, PO check Expected Outcomes/Goals Expected Outcomes/Goals 1. PO intake to meet at least 75% of nutritional needs. 2. Wt stability, skin to remain intact, labs to approach WNL.
[2017-06-10] MEDS: Multivitamin Tab PO SCH (08:57)
[2017-06-10] MEDS: Potassium Chloride 20 mEq ER Tab PO SCH ×2 (08:57→18:16)
--- NOTE | 2017-06-10 09:06 | Infectious Disease Prog Note ---
Infectious Disease Subjective - Review of Systems Service Date: 06/10/17 Subjective: There is no new change, no fever. Infectious Disease Objective - Results Result Diagrams: 06/10/17 05:50 06/10/17 05:50 Recent Labs: Laboratory Last Values WBC 10.8 Th/cmm (4.8-10.8) 06/10/17 05:50 RBC 3.71 Mil/cmm (3.80-5.80) L 06/10/17 05:50 Hgb 10.0 gm/dL (12-16) L 06/10/17 05:50 Hct 29.8 % (41.0-60) L 06/10/17 05:50 MCV 80.2 fl (80-99) 06/10/17 05:50 MCH 27.0 pg (27.0-31.0) 06/10/17 05:50 MCHC Differential 33.7 pg (28.0-36.0) 06/10/17 05:50 RDW 15.3 % (11.5-20.0) 06/10/17 05:50 Plt Count 408 Th/cmm (150-400) H 06/10/17 05:50 MPV 7.5 fl 06/10/17 05:50 Neutrophils % 75.4 % (40.0-80.0) 06/10/17 05:50 Lymphocytes % 15.1 % (20.0-50.0) L 06/10/17 05:50 Monocytes % 6.7 % (2.0-10.0) 06/10/17 05:50 Eosinophils % 2.4 % (0.0-5.0) 06/10/17 05:50 Basophils % 0.4 % (0.0-2.0) 06/10/17 05:50 ESR 90 mm/hr (0-20) H 06/10/17 05:50 PT 11.8 SECONDS (9.5-11.5) H 06/09/17 00:56 INR 1.12 (0.5-1.4) 06/09/17 00:56 PTT (Actin FS) 28.6 SECONDS (26.0-38.0) 06/09/17 00:56 Sodium 137 mEq/L (136-145) 06/10/17 05:50 Potassium 4.7 mEq/L (3.5-5.1) 06/10/17 05:50 Chloride 106 mEq/L (98-107) 06/10/17 05:50 Carbon Dioxide 25.5 mEq/L (21.0-31.0) 06/10/17 05:50 Anion Gap 10.2 (7.0-16.0) 06/10/17 05:50 BUN 18 mg/dL (7-25) 06/10/17 05:50 Creatinine 0.7 mg/dL (0.7-1.3) 06/10/17 05:50 Est GFR ( Amer) TNP 06/10/17 05:50 Est GFR (Non-Af Amer) TNP 06/10/17 05:50 BUN/Creatinine Ratio 25.7 06/10/17 05:50 Glucose 102 mg/dL (70-105) D 06/10/17 05:50 POC Glucose 101 MG/DL (70 - 105) 06/10/17 05:34 Hemoglobin A1c % 9.0 % (4.0-6.0) H 06/09/17 07:05 Whole Bld Lactic Acid 0.80 mmol/L (0.60-1.99) 06/09/17 Unknown Calcium 9.3 mg/dL (8.6-10.3) 06/10/17 05:50 Total Bilirubin 0.4 mg/dL (0.3-1.0) 06/10/17 05:50 AST 13 U/L (13-39) 06/10/17 05:50 ALT 7 U/L (7-52) 06/10/17 05:50 Alkaline Phosphatase 119 U/L (34-104) H 06/10/17 05:50 Lactate Dehydrogenase 118 U/L (140-271) L 06/10/17 05:50 C-Reactive Protein 7.9 mg/dL (0.0-0.9) H 06/09/17 07:05 Total Protein 6.9 gm/dL (6.0-8.3) 06/10/17 05:50 Albumin 3.0 gm/dL (4.2-5.5) L 06/10/17 05:50 Globulin 3.9 gm/dL 06/10/17 05:50 Albumin/Globulin Ratio 0.8 (1.0-1.8) L 06/10/17 05:50 Triglycerides 85 mg/dL (<150) 06/09/17 07:05 Cholesterol 79 mg/dL (<200) 06/09/17 07:05 LDL Cholesterol Direct 30 mg/dL (75-193) L 06/09/17 07:05 HDL Cholesterol 32 mg/dL (23-92) 06/09/17 07:05 TSH 0.51 uIU/ml (0.34-5.60) 06/09/17 07:05 Urine Source RANDOM 06/09/17 10:02 Urine Color YELLOW 06/09/17 10:02 Urine Clarity HAZY (CLEAR) 06/09/17 10:02 Urine pH 5.5 (4.6 - 8.0) 06/09/17 10:02 Ur Specific [place] >= 1.030 (1.005-1.030) 06/09/17 10:02 Urine Protein TRACE mg/dL (NEGATIVE) 06/09/17 10:02 Urine Glucose (UA) NEGATIVE mg/dL (NEGATIVE) 06/09/17 10:02 Urine Ketones 15 mg/dL (NEGATIVE) H 06/09/17 10:02 Urine Blood NEGATIVE (NEGATIVE) 06/09/17 10:02 Urine Nitrate NEGATIVE (NEGATIVE) 06/09/17 10:02 Urine Bilirubin SMALL (NEGATIVE) H 06/09/17 10:02 Urine Urobilinogen 0.2 E.U./dL (0.2 - 1.0) 06/09/17 10:02 Ur Leukocyte Esterase NEGATIVE (NEGATIVE) 06/09/17 10:02 Urine RBC 2-5 /hpf (0-5) H 06/09/17 10:02 Urine WBC 6-10 /hpf (0-5) 06/09/17 10:02 Ur Epithelial Cells FEW /lpf (FEW) 06/09/17 10:02 Calcium Oxalate Crystal MODERATE /hpf 06/09/17 10:02 Urine Bacteria FEW /hpf (NONE SEEN) 06/09/17 10:02 Urine Yeast FEW /hpf (NONE SEEN) H 06/09/17 10:02 - Physical Exam Vitals and I&O: Vital Signs Temp 97.5 F 06/10/17 08:00 Pulse 93 06/10/17 08:00 Resp 18 06/10/17 08:00 BP 136/80 06/10/17 08:00 Pulse Ox 100 06/10/17 08:00 Intake & Output 06/09/17 06/10/17 06/10/17 18:59 06:59 18:59 Intake Total 1000 400 Output Total 200 Balance 800 400 Weight (lbs) 72.575 kg 74.616 kg Intake: Intake, IV Amount 100 Cefepime 2 gm In Dextrose 100 5% 100 ml @ 100 mls/hr IV Q12HR [facility] Rx#: [id number] Oral 1000 300 Output: Urine 200 Other: # Voids 4 3 # Bowel Movements 3 3 Stool Characteristics Soft Liquid Brown Green Weight Source Bedscale Bedscale Active Medications: Current Medications Acetaminophen/Hydrocodone Bitart ([place] 5mg/325mg) 2 tab PO Q4HR PRN PRN Reason: Pain (Severe) Stop: 08/08/17 04:35 Last Admin: 06/09/17 21:34 Dose: 2 tab Ascorbic Acid (Vitamin C) 500 mg PO DAILY [facility] Stop: 08/08/17 08:59 Last Admin: 06/10/17 08:57 Dose: 500 mg Baclofen (Lioresal) 10 mg PO TID [facility] Stop: 08/08/17 08:59 Last Admin: 06/10/17 08:57 Dose: 10 mg Gabapentin (Neurontin) 300 mg PO TID [facility] Stop: 08/08/17 08:59 Last Admin: 06/10/17 08:57 Dose: 300 mg Glipizide (Glucotrol) 5 mg PO BID [facility] Stop: 08/08/17 08:59 Last Admin: 06/10/17 08:58 Dose: Not Given Dextrose/Sodium Chloride (D5-0.9%Ns) 1,000 mls @ 50 mls/hr IV .Q20H [facility] Stop: 08/08/17 08:29 Last Admin: 06/09/17 10:07 Dose: 50 mls/hr Vancomycin HCl 1.25 gm/ Sodium (Chloride) 250 mls @ 165 mls/hr IV Q18H [facility] Stop: 08/08/17 20:59 Last Admin: 06/09/17 21:31 Dose: 165 mls/hr Cefepime HCl 2 gm/ Dextrose 100 mls @ 100 mls/hr IV Q12HR [facility] Stop: 08/08/17 20:59 Last Admin: 06/10/17 08:57 Dose: 100 mls/hr Insulin Aspart (Novolog Insulin Sliding Scale) 0 units SUBQ ACHS JACK PRN Reason: Protocol Stop: 08/08/17 07:29 Last Admin: 06/10/17 06:35 Dose: Not Given Loperamide HCl (Imodium) 4 mg PO Q6H PRN PRN Reason: Diarrhea Stop: 08/08/17 20:48 Last Admin: 06/09/17 21:35 Dose: 4 mg Miscellaneous (Meloxicam [Meloxicam]) 15 mg PO DAILY [facility] Stop: 08/08/17 08:59 Miscellaneous (Vancomycin Iv Per Pharmacy) 1 ea [facility] PRN PRN PRN Reason: PROTOCOL Stop: 08/08/17 04:45 Multivitamins/Vitamin C (Theragran) 1 tab PO DAILY [facility] Stop: 08/08/17 08:59 Last Admin: 06/10/17 08:57 Dose: 1 tab Ondansetron HCl (Zofran) 4 mg IV Q6H PRN PRN Reason: Nausea / Vomiting Stop: 08/08/17 08:16 Pantoprazole Sodium (Protonix) 40 mg PO BIDAC [facility] Stop: 08/08/17 07:29 Last Admin: 06/10/17 06:35 Dose: Not Given Potassium Chloride (Klor-Con) 20 meq PO BID [facility] Stop: 08/08/17 08:59 Last Admin: 06/10/17 08:57 Dose: 20 meq General: no acute distress, well developed, well nourished HEENT: atraumatic, normocephalic, PERRLA, EOMI, moist mucous membrane Neck: supple, no thyromegaly Cardiovascular: S1S2, regular Lungs: clear to auscultation bilaterally, clear to percussion Abdomen: soft, no tender, no distended Extremities: no cyanosis, no clubbing, no edema Neurological: awake, alert, oriented Skin: intact Other physical findings: swelling of the left sternoclavicular joint. Infectious Disease Assmt/Plan - Assessment Assessment: 1. Left lower neck swelling, symptomatic at this time. 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 Partially treated. ESR 90 and CRP 7.9. MRI report was reviewed. abscess and osteomyelitis of the left sternoclavicular joint 2. Diabetes mellitus type 2. 3. Hypertension. 4. COPD. 5. Dementia. 6. DJD. 7. GERD. 8. Diabetic ulcer of left foot. 9. Left foot TMA. - Plan Plan: Continue vancomycin IV and cefepime IV. meanwhile, follow up on serologies fo cocci and TB Gold quantiferon. Nutritional Asmnt/Malnutr-PDOC - Dietary Evaluation Malnutrition Findings (Please click <Entered> for more info): Nutritional Asmnt/Malnutrition Start: 06/09/17 15: 36 Text: Status: Complete Freq: Document 06/09/17 15:36 [facility] (Rec: 06/09/17 15:46 HEN [email or web address]) Nutritional Asmnt/Malnutrition Patient General Information Nutritional Screening High Risk Consult Diagnosis neck mass Pertinent Medical Hx/Surgical Hx DM, HTN, asthma/COPD, dementia , renal transplant, partial left foot amputation Subjective Information Consult received for diabetic. Pt seen sitting up in bed at time of visit, wake and alert. Pt stated not hungry today, maybe better appetite tommorrow. Pt has no preference about food, every food is ok for him. Current Diet [facility]/ [facility] Pertinent Medications vit C, D5-0.9%ns, glucotrol, novolog, cangomycin, theragran , protonix, kcl Pertinent Labs 06/09 glucose 164-178, POC 160- 227 Nutritional Hx/Data Height 1.7 m Height (Calculated Centimeters) 170.2 Current Weight (lbs) 72.575 kg Weight (Calculated Kilograms) 72.6 Weight (Calculated Grams) 04807.8 [place] Body Weight 148 Body Mass Index (BMI) 25.0 Weight Status Overweight GI Symptoms GI Symptoms None Last BM 06/09 Difficult in: None Skin Integrity/Comment: abrasion to left arm, lump to right knee, left upper neck Estimated Nutritional Goals BEE in Kcals: Using Current wt Calories/Kcals/Kg 23-27 Kcals Calculated 0128-1239 Protein: Using Current wt Protein g/k Protein Calculated 73 Fluid: ml 1679-2336ml (1ml/kcal) Nutritional Problem 1. Problem Problem altered nutrition related labs Etiology hx of DM Signs/Symptoms: glucose 164-178, POC 160-227 Malnutrition Alert Protein-Calorie Malnutrition N/A Is there a minimum of two criteria No selected? Query Text:Check all the applicable criteria. A minimum of two criteria are recommended for diagnosis of either severe or non-severe malnutrition. Intervention/Recommendation Comments 1. Continue with CCHO-60gm diet as ordered. Encouraged oral intake and balanced meal. 2. Monitor PO intake, wt, labs and skin integrity 3. F/U as moderate risk in 3-5 days, 06/12-06/14, PO check Expected Outcomes/Goals Expected Outcomes/Goals 1. PO intake to meet at least 75% of nutritional needs. 2. Wt stability, skin to remain intact, labs to approach WNL.
--- NOTE | 2017-06-10 11:36 | General Progress Note ---
Subjective - Review of Systems Service Date: 06/10/17 Subjective: No new sxs Objective - Results Result Diagrams: 06/10/17 05:50 06/10/17 05:50 Recent Labs: Laboratory Last Values WBC 10.8 Th/cmm (4.8-10.8) 06/10/17 05:50 RBC 3.71 Mil/cmm (3.80-5.80) L 06/10/17 05:50 Hgb 10.0 gm/dL (12-16) L 06/10/17 05:50 Hct 29.8 % (41.0-60) L 06/10/17 05:50 MCV 80.2 fl (80-99) 06/10/17 05:50 MCH 27.0 pg (27.0-31.0) 06/10/17 05:50 MCHC Differential 33.7 pg (28.0-36.0) 06/10/17 05:50 RDW 15.3 % (11.5-20.0) 06/10/17 05:50 Plt Count 408 Th/cmm (150-400) H 06/10/17 05:50 MPV 7.5 fl 06/10/17 05:50 Neutrophils % 75.4 % (40.0-80.0) 06/10/17 05:50 Lymphocytes % 15.1 % (20.0-50.0) L 06/10/17 05:50 Monocytes % 6.7 % (2.0-10.0) 06/10/17 05:50 Eosinophils % 2.4 % (0.0-5.0) 06/10/17 05:50 Basophils % 0.4 % (0.0-2.0) 06/10/17 05:50 ESR 90 mm/hr (0-20) H 06/10/17 05:50 PT 11.8 SECONDS (9.5-11.5) H 06/09/17 00:56 INR 1.12 (0.5-1.4) 06/09/17 00:56 PTT (Actin FS) 28.6 SECONDS (26.0-38.0) 06/09/17 00:56 Sodium 137 mEq/L (136-145) 06/10/17 05:50 Potassium 4.7 mEq/L (3.5-5.1) 06/10/17 05:50 Chloride 106 mEq/L (98-107) 06/10/17 05:50 Carbon Dioxide 25.5 mEq/L (21.0-31.0) 06/10/17 05:50 Anion Gap 10.2 (7.0-16.0) 06/10/17 05:50 BUN 18 mg/dL (7-25) 06/10/17 05:50 Creatinine 0.7 mg/dL (0.7-1.3) 06/10/17 05:50 Est GFR ( Amer) TNP 06/10/17 05:50 Est GFR (Non-Af Amer) TNP 06/10/17 05:50 BUN/Creatinine Ratio 25.7 06/10/17 05:50 Glucose 102 mg/dL (70-105) D 06/10/17 05:50 POC Glucose 101 MG/DL (70 - 105) 06/10/17 05:34 Hemoglobin A1c % 9.0 % (4.0-6.0) H 06/09/17 07:05 Whole Bld Lactic Acid 0.80 mmol/L (0.60-1.99) 06/09/17 Unknown Calcium 9.3 mg/dL (8.6-10.3) 06/10/17 05:50 Total Bilirubin 0.4 mg/dL (0.3-1.0) 06/10/17 05:50 AST 13 U/L (13-39) 06/10/17 05:50 ALT 7 U/L (7-52) 06/10/17 05:50 Alkaline Phosphatase 119 U/L (34-104) H 06/10/17 05:50 Lactate Dehydrogenase 118 U/L (140-271) L 06/10/17 05:50 C-Reactive Protein 7.9 mg/dL (0.0-0.9) H 06/09/17 07:05 Total Protein 6.9 gm/dL (6.0-8.3) 06/10/17 05:50 Albumin 3.0 gm/dL (4.2-5.5) L 06/10/17 05:50 Globulin 3.9 gm/dL 06/10/17 05:50 Albumin/Globulin Ratio 0.8 (1.0-1.8) L 06/10/17 05:50 Triglycerides 85 mg/dL (<150) 04/24/18 07:05 Cholesterol 79 mg/dL (<200) 06/09/17 07:05 LDL Cholesterol Direct 30 mg/dL (75-193) L 06/09/17 07:05 HDL Cholesterol 32 mg/dL (23-92) 06/09/17 07:05 TSH 0.51 uIU/ml (0.34-5.60) 06/09/17 07:05 Urine Source RANDOM 06/09/17 10:02 Urine Color YELLOW 06/09/17 10:02 Urine Clarity HAZY (CLEAR) 06/09/17 10:02 Urine pH 5.5 (4.6 - 8.0) 06/09/17 10:02 Ur Specific [place] >= 1.030 (1.005-1.030) 06/09/17 10:02 Urine Protein TRACE mg/dL (NEGATIVE) 06/09/17 10:02 Urine Glucose (UA) NEGATIVE mg/dL (NEGATIVE) 06/09/17 10:02 Urine Ketones 15 mg/dL (NEGATIVE) H 06/09/17 10:02 Urine Blood NEGATIVE (NEGATIVE) 06/09/17 10:02 Urine Nitrate NEGATIVE (NEGATIVE) 06/09/17 10:02 Urine Bilirubin SMALL (NEGATIVE) H 06/09/17 10:02 Urine Urobilinogen 0.2 E.U./dL (0.2 - 1.0) 06/09/17 10:02 Ur Leukocyte Esterase NEGATIVE (NEGATIVE) 06/09/17 10:02 Urine RBC 2-5 /hpf (0-5) H 06/09/17 10:02 Urine WBC 6-10 /hpf (0-5) 06/09/17 10:02 Ur Epithelial Cells FEW /lpf (FEW) 06/09/17 10:02 Calcium Oxalate Crystal MODERATE /hpf 06/09/17 10:02 Urine Bacteria FEW /hpf (NONE SEEN) 06/09/17 10:02 Urine Yeast FEW /hpf (NONE SEEN) H 06/09/17 10:02 - Physical Exam Vitals and I&O: Vital Signs Temp 97.5 F 06/10/17 08:00 Pulse 93 06/10/17 08:00 Resp 18 06/10/17 08:00 BP 136/80 06/10/17 08:00 Pulse Ox 100 06/10/17 08:00 Intake & Output 06/09/17 06/10/17 06/10/17 18:59 06:59 18:59 Intake Total 1000 400 Output Total 200 Balance 800 400 Weight (lbs) 72.575 kg 74.616 kg Intake: Intake, IV Amount 100 Cefepime 2 gm In Dextrose 100 5% 100 ml @ 100 mls/hr IV Q12HR [facility] Rx#: [id number] Oral 1000 300 Output: Urine 200 Other: # Voids 4 3 # Bowel Movements 3 3 Stool Characteristics Soft Liquid Brown Green Weight Source Bedscale Bedscale Active Medications: Current Medications Acetaminophen/Hydrocodone Bitart ([place] 5mg/325mg) 2 tab PO Q4HR PRN PRN Reason: Pain (Severe) Stop: 08/08/17 04:35 Last Admin: 06/09/17 21:34 Dose: 2 tab Ascorbic Acid (Vitamin C) 500 mg PO DAILY [facility] Stop: 08/08/17 08:59 Last Admin: 06/10/17 08:57 Dose: 500 mg Baclofen (Lioresal) 10 mg PO TID [facility] Stop: 08/08/17 08:59 Last Admin: 06/10/17 08:57 Dose: 10 mg Gabapentin (Neurontin) 300 mg PO TID [facility] Stop: 08/08/17 08:59 Last Admin: 06/10/17 08:57 Dose: 300 mg Glipizide (Glucotrol) 5 mg PO BID [facility] Stop: 08/08/17 08:59 Last Admin: 06/10/17 08:58 Dose: Not Given Dextrose/Sodium Chloride (D5-0.9%Ns) 1,000 mls @ 50 mls/hr IV .Q20H [facility] Stop: 08/08/17 08:29 Last Admin: 06/09/17 10:07 Dose: 50 mls/hr Vancomycin HCl 1.25 gm/ Sodium (Chloride) 250 mls @ 165 mls/hr IV Q18H [facility] Stop: 08/08/17 20:59 Last Admin: 06/09/17 21:31 Dose: 165 mls/hr Cefepime HCl 2 gm/ Dextrose 100 mls @ 100 mls/hr IV Q12HR [facility] Stop: 08/08/17 20:59 Last Admin: 06/10/17 08:57 Dose: 100 mls/hr Insulin Aspart (Novolog Insulin Sliding Scale) 0 units SUBQ ACHS JACK PRN Reason: Protocol Stop: 08/08/17 07:29 Last Admin: 06/10/17 06:35 Dose: Not Given Loperamide HCl (Imodium) 4 mg PO Q6H PRN PRN Reason: Diarrhea Stop: 08/08/17 20:48 Last Admin: 06/09/17 21:35 Dose: 4 mg Miscellaneous (Meloxicam [Meloxicam]) 15 mg PO DAILY [facility] Stop: 08/08/17 08:59 Miscellaneous (Vancomycin Iv Per Pharmacy) 1 ea [facility] PRN PRN PRN Reason: PROTOCOL Stop: 08/08/17 04:45 Multivitamins/Vitamin C (Theragran) 1 tab PO DAILY [facility] Stop: 08/08/17 08:59 Last Admin: 06/10/17 08:57 Dose: 1 tab Ondansetron HCl (Zofran) 4 mg IV Q6H PRN PRN Reason: Nausea / Vomiting Stop: 08/08/17 08:16 Pantoprazole Sodium (Protonix) 40 mg PO BIDAC [facility] Stop: 08/08/17 07:29 Last Admin: 06/10/17 06:35 Dose: Not Given Potassium Chloride (Klor-Con) 20 meq PO BID [facility] Stop: 08/08/17 08:59 Last Admin: 06/10/17 08:57 Dose: 20 meq General: Alert, Oriented x3, No acute distress HEENT: Atraumatic, PERRLA, EOMI Neck: Supple Cardiovascular: Regular rate, Normal S1, Normal S2 Lungs: Clear to auscultation Abdomen: Bowel sounds, Soft Neurological: Normal gait, Normal speech Assessment/Plan - Assessment Assessment: * left sternoclavicular joint osteo * Possible lymphoma check CT abd/p may need bone marrow biopsy Nutritional Asmnt/Malnutr-PDOC - Dietary Evaluation Malnutrition Findings (Please click <Entered> for more info): Nutritional Asmnt/Malnutrition Start: 06/09/17 15: 36 Text: Status: Complete Freq: Document 06/09/17 15:36 [facility] (Rec: 06/09/17 15:46 POLINAG [email or web address]) Nutritional Asmnt/Malnutrition Patient General Information Nutritional Screening High Risk Consult Diagnosis neck mass Pertinent Medical Hx/Surgical Hx DM, HTN, asthma/COPD, dementia , renal transplant, partial left foot amputation Subjective Information Consult received for diabetic. Pt seen sitting up in bed at time of visit, wake and alert. Pt stated not hungry today, maybe better appetite tommorrow. Pt has no preference about food, every food is ok for him. Current Diet Order/ [facility] Pertinent Medications vit C, D5-0.9%ns, glucotrol, novolog, cangomycin, theragran , protonix, kcl Pertinent Labs 06/09 glucose 164-178, POC 160- 227 Nutritional Hx/Data Height 1.7 m Height (Calculated Centimeters) 170.2 Current Weight (lbs) 72.575 kg Weight (Calculated Kilograms) 72.6 Weight (Calculated Grams) 15521.8 [place] Body Weight 148 Body Mass Index (BMI) 25.0 Weight Status Overweight GI Symptoms GI Symptoms None Last BM 06/09 Difficult in: None Skin Integrity/Comment: abrasion to left arm, lump to right knee, left upper neck Estimated Nutritional Goals BEE in Kcals: Using Current wt Calories/Kcals/Kg 23-27 Kcals Calculated 8837-9319 Protein: Using Current wt Protein g/k Protein Calculated 73 Fluid: ml 1679-2336ml (1ml/kcal) Nutritional Problem 1. Problem Problem altered nutrition related labs Etiology hx of DM Signs/Symptoms: glucose 164-178, POC 160-227 Malnutrition Alert Protein-Calorie Malnutrition N/A Is there a minimum of two criteria No selected? Query Text:Check all the applicable criteria. A minimum of two criteria are recommended for diagnosis of either severe or non-severe malnutrition. Intervention/Recommendation Comments 1. Continue with [facility] diet as ordered. Encouraged oral intake and balanced meal. 2. Monitor PO intake, wt, labs and skin integrity 3. F/U as moderate risk in 3-5 days, 06/12-06/14, PO check Expected Outcomes/Goals Expected Outcomes/Goals 1. PO intake to meet at least 75% of nutritional needs. 2. Wt stability, skin to remain intact, labs to approach WNL.
--- NOTE | 2017-06-10 12:32 | Diagnostic Imaging Report ---
MRI soft tissue neck without and with IV contrast History: Neck mass Comparison: CT chest performed at [facility] on 06/09/2017 Technique/procedure: Multiplanar T1, STIR , and T2-weighted images of the soft tissue neck were obtained without IV contrast. IV contrast was subsequently administered and multiplanar T1-weighted images were obtained. Findings: The bilateral parapharyngeal fat planes are preserved. The Submandibular glands and parotid glands are grossly unremarkable. The thyroid gland appears hypoplastic. Degenerative changes of the spine are noted. There is bone marrow edema and what appears to be abnormal erosive bony changes along the medial/distal aspect of the left clavicle along the along its articulation with the manubrium. Areas of edema what appear to be fluid collections are seen anteriorly measuring 2.5 x 2 cm and medially adjacent to the manubrium measuring 1.6 x 1.2 cm. Surrounding inflammatory change in soft tissue Fat planes are preserved. There is also mild edema seen along the proximal along the manubrium with the regularities of the lateral aspect of the left manubrium. Following contrast administration mildly enhancing peripheral enhancement of the fluid collections is noted in these regions. IMPRESSION: Edema seen throughout the left clavicle greatest along the distal/medial aspect of the left clavicle with irregularity and erosions along the medial aspect extending to its articulation with the manubrium with osseous edema also noted within the manubrium. 2 fluid collections are seen including anterior to the distal clavicle measuring 2.5 x 2 cm and adjacent to the articulation between the distal clavicle and manubrium measuring 1.6 x 1.2 cm. Surrounding inflammatory changes are noted. The etiology of these findings may be due to infectious process and associated osteomyelitis of the left clavicle and manubrium. Small infected fluid collections cannot be excluded. Other inflammatory changes are posttraumatic change may also be considered. Neoplastic process is considered less likely, however, clinical correlation and follow-up is recommended. Note also bony involvement and infection involving the articulation of the left first rib with the left side of the manubrium cannot be excluded. Minimal inflammatory changes seen along the left retromanubrial region.
[2017-06-10] MEDS: Hydrocodone/APAP 5mg/325mg Tab PO PRN (18:23)
--- NOTE | 2017-06-11 05:07 | General Progress Note ---
Subjective - Review of Systems Service Date: 06/11/17 Subjective: Patient was seen and examined. No acute distress. afebrile. NPO since midnight. Patient scheduled for CT abd/pelvis and bone scan. Objective - Results Result Diagrams: 06/10/17 05:50 06/10/17 05:50 Recent Labs: Laboratory Last Values WBC 10.8 Th/cmm (4.8-10.8) 06/10/17 05:50 RBC 3.71 Mil/cmm (3.80-5.80) L 06/10/17 05:50 Hgb 10.0 gm/dL (12-16) L 06/10/17 05:50 Hct 29.8 % (41.0-60) L 06/10/17 05:50 MCV 80.2 fl (80-99) 06/10/17 05:50 MCH 27.0 pg (27.0-31.0) 06/10/17 05:50 MCHC Differential 33.7 pg (28.0-36.0) 06/10/17 05:50 RDW 15.3 % (11.5-20.0) 06/10/17 05:50 Plt Count 408 Th/cmm (150-400) H 06/10/17 05:50 MPV 7.5 fl 06/10/17 05:50 Neutrophils % 75.4 % (40.0-80.0) 06/10/17 05:50 Lymphocytes % 15.1 % (20.0-50.0) L 06/10/17 05:50 Monocytes % 6.7 % (2.0-10.0) 06/10/17 05:50 Eosinophils % 2.4 % (0.0-5.0) 06/10/17 05:50 Basophils % 0.4 % (0.0-2.0) 06/10/17 05:50 ESR 90 mm/hr (0-20) H 06/10/17 05:50 PT 11.8 SECONDS (9.5-11.5) H 06/09/17 00:56 INR 1.12 (0.5-1.4) 06/09/17 00:56 PTT (Actin FS) 28.6 SECONDS (26.0-38.0) 06/09/17 00:56 Sodium 137 mEq/L (136-145) 06/10/17 05:50 Potassium 4.7 mEq/L (3.5-5.1) 06/10/17 05:50 Chloride 106 mEq/L (98-107) 06/10/17 05:50 Carbon Dioxide 25.5 mEq/L (21.0-31.0) 06/10/17 05:50 Anion Gap 10.2 (7.0-16.0) 06/10/17 05:50 BUN 18 mg/dL (7-25) 06/10/17 05:50 Creatinine 0.7 mg/dL (0.7-1.3) 06/10/17 05:50 Est GFR ( Amer) TNP 06/10/17 05:50 Est GFR (Non-Af Amer) TNP 06/10/17 05:50 BUN/Creatinine Ratio 25.7 06/10/17 05:50 Glucose 102 mg/dL (70-105) D 06/10/17 05:50 POC Glucose 271 MG/DL (70 - 105) H 06/10/17 20:21 Hemoglobin A1c % 9.0 % (4.0-6.0) H 06/09/17 07:05 Whole Bld Lactic Acid 0.80 mmol/L (0.60-1.99) 06/09/17 Unknown Calcium 9.3 mg/dL (8.6-10.3) 06/10/17 05:50 Total Bilirubin 0.4 mg/dL (0.3-1.0) 06/10/17 05:50 AST 13 U/L (13-39) 06/10/17 05:50 ALT 7 U/L (7-52) 06/10/17 05:50 Alkaline Phosphatase 119 U/L (34-104) H 06/10/17 05:50 Lactate Dehydrogenase 118 U/L (140-271) L 06/10/17 05:50 C-Reactive Protein 7.9 mg/dL (0.0-0.9) H 06/09/17 07:05 Total Protein 6.9 gm/dL (6.0-8.3) 06/10/17 05:50 Albumin 3.0 gm/dL (4.2-5.5) L 06/10/17 05:50 Globulin 3.9 gm/dL 06/10/17 05:50 Albumin/Globulin Ratio 0.8 (1.0-1.8) L 06/10/17 05:50 Triglycerides 85 mg/dL (<150) 06/09/17 07:05 Cholesterol 79 mg/dL (<200) 06/09/17 07:05 LDL Cholesterol Direct 30 mg/dL (75-193) L 06/09/17 07:05 HDL Cholesterol 32 mg/dL (23-92) 06/09/17 07:05 TSH 0.51 uIU/ml (0.34-5.60) 06/09/17 07:05 Urine Source RANDOM 06/09/17 10:02 Urine Color YELLOW 06/09/17 10:02 Urine Clarity HAZY (CLEAR) 06/09/17 10:02 Urine pH 5.5 (4.6 - 8.0) 06/09/17 10:02 Ur Specific [place] >= 1.030 (1.005-1.030) 06/09/17 10:02 Urine Protein TRACE mg/dL (NEGATIVE) 06/09/17 10:02 Urine Glucose (UA) NEGATIVE mg/dL (NEGATIVE) 06/09/17 10:02 Urine Ketones 15 mg/dL (NEGATIVE) H 06/09/17 10:02 Urine Blood NEGATIVE (NEGATIVE) 06/09/17 10:02 Urine Nitrate NEGATIVE (NEGATIVE) 06/09/17 10:02 Urine Bilirubin SMALL (NEGATIVE) H 06/09/17 10:02 Urine Urobilinogen 0.2 E.U./dL (0.2 - 1.0) 06/09/17 10:02 Ur Leukocyte Esterase NEGATIVE (NEGATIVE) 06/09/17 10:02 Urine RBC 2-5 /hpf (0-5) H 06/09/17 10:02 Urine WBC 6-10 /hpf (0-5) 06/09/17 10:02 Ur Epithelial Cells FEW /lpf (FEW) 06/09/17 10:02 Calcium Oxalate Crystal MODERATE /hpf 06/09/17 10:02 Urine Bacteria FEW /hpf (NONE SEEN) 06/09/17 10:02 Urine Yeast FEW /hpf (NONE SEEN) H 06/09/17 10:02 Vancomycin Trough 12.4 ug/mL (5-10) H 06/10/17 14:00 - Physical Exam Vitals and I&O: Vital Signs Temp 97.2 F 06/11/17 04:00 Pulse 81 06/11/17 04:00 Resp 17 06/11/17 04:00 BP 130/74 06/11/17 04:00 Pulse Ox 95 06/11/17 04:00 Intake & Output 06/10/17 06/10/17 06/11/17 06:59 18:59 06:59 Intake Total 400 350 Balance 400 350 Weight (lbs) 74.616 kg 74.435 kg Intake: Intake, IV Amount 100 350 Cefepime 2 gm In Dextrose 100 100 5% 100 ml @ 100 mls/hr IV Q12HR [facility] Rx#: [id number] Vancomycin HCl 1.25 gm In 250 Sodium Chloride 0.9% 250 ml @ 165 mls/hr IV Q18H [facility] Rx#:[id number] Oral 300 Other: # Voids 3 3 # Bowel Movements 3 3 Stool Characteristics Liquid Brown Green Weight Source Bedscale Bedscale Active Medications: Current Medications Acetaminophen/Hydrocodone Bitart ([place] 5mg/325mg) 2 tab PO Q4HR PRN PRN Reason: Pain (Severe) Stop: 08/08/17 04:35 Last Admin: 06/10/17 18:23 Dose: 2 tab Ascorbic Acid (Vitamin C) 500 mg PO DAILY [facility] Stop: 08/08/17 08:59 Last Admin: 06/10/17 08:57 Dose: 500 mg Baclofen (Lioresal) 10 mg PO TID [facility] Stop: 08/08/17 08:59 Last Admin: 06/10/17 20:19 Dose: 10 mg [place] Oil/[place] Balsam/Trypsin (Venelex) 1 appl TP DAILY [facility] Stop: 08/10/17 08:59 Gabapentin (Neurontin) 300 mg PO TID [facility] Stop: 08/08/17 08:59 Last Admin: 06/10/17 20:19 Dose: 300 mg Glipizide (Glucotrol) 5 mg PO BID [facility] Stop: 08/08/17 08:59 Last Admin: 06/10/17 18:17 Dose: Not Given Vancomycin HCl 1.25 gm/ Sodium (Chloride) 250 mls @ 165 mls/hr IV Q18H [facility] Stop: 08/08/17 20:59 Last Admin: 06/10/17 16:39 Dose: 165 mls/hr Cefepime HCl 2 gm/ Dextrose 100 mls @ 100 mls/hr IV Q12HR [facility] Stop: 08/08/17 20:59 Last Admin: 06/10/17 20:19 Dose: 100 mls/hr Insulin Aspart (Novolog Insulin Sliding Scale) 0 units SUBQ ACHS [facility] PRN Reason: Protocol Stop: 08/08/17 07:29 Last Admin: 06/10/17 20:22 Dose: 6 units Loperamide HCl (Imodium) 4 mg PO Q6H PRN PRN Reason: Diarrhea Stop: 08/08/17 20:48 Last Admin: 06/09/17 21:35 Dose: 4 mg Miscellaneous (Meloxicam [Meloxicam]) 15 mg PO DAILY [facility] Stop: 08/08/17 08:59 Miscellaneous (Vancomycin Iv Per Pharmacy) 1 [facility] PRN PRN PRN Reason: PROTOCOL Stop: 08/08/17 04:45 Multivitamins/Vitamin C (Theragran) 1 tab PO DAILY [facility] Stop: 08/08/17 08:59 Last Admin: 06/10/17 08:57 Dose: 1 tab Ondansetron HCl (Zofran) 4 mg IV Q6H PRN PRN Reason: Nausea / Vomiting Stop: 08/08/17 08:16 Pantoprazole Sodium (Protonix) 40 mg PO BIDAC [facility] Stop: 08/08/17 07:29 Last Admin: 06/10/17 18:17 Dose: 40 mg Potassium Chloride (Klor-Con) 20 meq PO BID [facility] Stop: 08/08/17 08:59 Last Admin: 06/10/17 18:16 Dose: 20 meq General: Alert, Oriented x3, No acute distress HEENT: Atraumatic, PERRLA, EOMI Neck: Supple Cardiovascular: Regular rate, Normal S1, Normal S2 Lungs: Clear to auscultation Abdomen: Bowel sounds, Soft Neurological: Normal gait, Normal speech Assessment/Plan - Assessment Assessment: neck mass left side 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 PT eval Nutritional Asmnt/Malnutr-PDOC - Dietary Evaluation Malnutrition Findings (Please click <Entered> for more info): Nutritional Asmnt/Malnutrition Start: 06/09/17 15: 36 Text: Status: Complete Freq: Document 06/09/17 15:36 [email or web address] (Rec: 06/09/17 15:46 [email or web address] [id number]) Nutritional Asmnt/Malnutrition Patient General Information Nutritional Screening High Risk Consult Diagnosis neck mass Pertinent Medical Hx/Surgical Hx DM, HTN, asthma/COPD, dementia , renal transplant, partial left foot amputation Subjective Information Consult received for diabetic. Pt seen sitting up in bed at time of visit, wake and alert. Pt stated not hungry today, maybe better appetite tommorrow. Pt has no preference about food, every food is ok for him. Current Diet Order/ Nutrition Support CCHO-60gm Pertinent Medications vit C, D5-0.9%ns, glucotrol, novolog, cangomycin, theragran , protonix, kcl Pertinent Labs 06/09 glucose 164-178, POC 160- 227 Nutritional Hx/Data Height 1.7 m Height (Calculated Centimeters) 170.2 Current Weight (lbs) 72.575 kg Weight (Calculated Kilograms) 72.6 Weight (Calculated Grams) 65890.8 [place] Body Weight 148 Body Mass Index (BMI) 25.0 Weight Status Overweight GI Symptoms GI Symptoms None Last BM 06/09 Difficult in: None Skin Integrity/Comment: abrasion to left arm, lump to right knee, left upper neck Estimated Nutritional Goals BEE in Kcals: Using Current wt Calories/Kcals/Kg 23-27 Kcals Calculated 1080-8293 Protein: Using Current wt Protein g/k Protein Calculated 73 Fluid: ml 1679-2336ml (1ml/kcal) Nutritional Problem 1. Problem Problem altered nutrition related labs Etiology hx of DM Signs/Symptoms: glucose 164-178, POC 160-227 Malnutrition Alert Protein-Calorie Malnutrition N/A Is there a minimum of two criteria No selected? Query Text:Check all the applicable criteria. A minimum of two criteria are recommended for diagnosis of either severe or non-severe malnutrition. Intervention/Recommendation Comments 1. Continue with CCHO-60gm diet as ordered. Encouraged oral intake and balanced meal. 2. Monitor PO intake, wt, labs and skin integrity 3. F/U as moderate risk in 3-5 days, 06/12-06/14, PO check Expected Outcomes/Goals Expected Outcomes/Goals 1. PO intake to meet at least 75% of nutritional needs. 2. Wt stability, skin to remain intact, labs to approach WNL.
--- NOTE | 2017-06-11 07:56 | Progress Notes ---
DATE: PSYCHIATRIC PROGRESS NOTE SUBJECTIVE: Chart reviewed and the patient interviewed. Also discussed the patient's condition with the staff and reviewed records and labs. The patient is calm and is cooperative and compliant with history. The patient also is less anxious and easier to follow directions and compliant with taking his medications with no side effects. ASSESSMENT: The patient is calm. TREATMENT PLAN: We will continue monitoring his behavior and we will continue working on his ineffective coping and any possible use of any psychotropic medications. [facility]# [id number]
[2017-06-11] MEDS: INSULIN ASPART SLIDING SCALE 100 UNITS/ML UNIT SUBQ SCH ×4 (08:03→22:59)
[2017-06-11] MEDS ORDERED: Probiotic Screen MC PRN (09:00)
[2017-06-11] MEDS ORDERED: IOHEXOL 300mgI/mL 100 ML VIAL PO ONE (09:21)
[2017-06-11] MEDS: Lactobacillus Rhamnosus GG 15 Billion CFU CAP.SPRINK PO SCH (09:28)
[2017-06-11] MEDS: Pantoprazole 40 mg EC Tab PO SCH ×2 (09:28→17:12)
[2017-06-11] MEDS: Potassium Chloride 20 mEq ER Tab PO SCH ×2 (09:28→17:12)
[2017-06-11] MEDS: Multivitamin Tab PO SCH (09:28)
[2017-06-11] MEDS: Venelex 60gm Tube TP SCH (09:37)
--- NOTE | 2017-06-11 10:44 | General Progress Note ---
Subjective - Review of Systems Service Date: 06/11/17 Subjective: No new sxs Objective - Results Result Diagrams: 06/10/17 05:50 06/10/17 05:50 Recent Labs: Laboratory Last Values WBC 10.8 Th/cmm (4.8-10.8) 06/10/17 05:50 RBC 3.71 Mil/cmm (3.80-5.80) L 06/10/17 05:50 Hgb 10.0 gm/dL (12-16) L 06/10/17 05:50 Hct 29.8 % (41.0-60) L 06/10/17 05:50 MCV 80.2 fl (80-99) 06/10/17 05:50 MCH 27.0 pg (27.0-31.0) 06/10/17 05:50 MCHC Differential 33.7 pg (28.0-36.0) 06/10/17 05:50 RDW 15.3 % (11.5-20.0) 06/10/17 05:50 Plt Count 408 Th/cmm (150-400) H 06/10/17 05:50 MPV 7.5 fl 06/10/17 05:50 Neutrophils % 75.4 % (40.0-80.0) 06/10/17 05:50 Lymphocytes % 15.1 % (20.0-50.0) L 06/10/17 05:50 Monocytes % 6.7 % (2.0-10.0) 06/10/17 05:50 Eosinophils % 2.4 % (0.0-5.0) 06/10/17 05:50 Basophils % 0.4 % (0.0-2.0) 06/10/17 05:50 ESR 90 mm/hr (0-20) H 06/10/17 05:50 PT 11.8 SECONDS (9.5-11.5) H 06/09/17 00:56 INR 1.12 (0.5-1.4) 06/09/17 00:56 PTT (Actin FS) 28.6 SECONDS (26.0-38.0) 06/09/17 00:56 Sodium 137 mEq/L (136-145) 06/10/17 05:50 Potassium 4.7 mEq/L (3.5-5.1) 06/10/17 05:50 Chloride 106 mEq/L (98-107) 06/10/17 05:50 Carbon Dioxide 25.5 mEq/L (21.0-31.0) 06/10/17 05:50 Anion Gap 10.2 (7.0-16.0) 06/10/17 05:50 BUN 18 mg/dL (7-25) 06/10/17 05:50 Creatinine 0.7 mg/dL (0.7-1.3) 06/10/17 05:50 Est GFR ( Amer) TNP 06/10/17 05:50 Est GFR (Non-Af Amer) TNP 06/10/17 05:50 BUN/Creatinine Ratio 25.7 06/10/17 05:50 Glucose 102 mg/dL (70-105) D 06/10/17 05:50 POC Glucose 245 MG/DL (70 - 105) H 06/11/17 06:27 Hemoglobin A1c % 9.0 % (4.0-6.0) H 06/09/17 07:05 Whole Bld Lactic Acid 0.80 mmol/L (0.60-1.99) 06/09/17 Unknown Calcium 9.3 mg/dL (8.6-10.3) 06/10/17 05:50 Total Bilirubin 0.4 mg/dL (0.3-1.0) 06/10/17 05:50 AST 13 U/L (13-39) 06/10/17 05:50 ALT 7 U/L (7-52) 06/10/17 05:50 Alkaline Phosphatase 119 U/L (34-104) H 06/10/17 05:50 Lactate Dehydrogenase 118 U/L (140-271) L 06/10/17 05:50 C-Reactive Protein 7.9 mg/dL (0.0-0.9) H 06/09/17 07:05 Total Protein 6.9 gm/dL (6.0-8.3) 06/10/17 05:50 Albumin 3.0 gm/dL (4.2-5.5) L 06/10/17 05:50 Globulin 3.9 gm/dL 06/10/17 05:50 Albumin/Globulin Ratio 0.8 (1.0-1.8) L 06/10/17 05:50 Triglycerides 85 mg/dL (<150) 06/09/17 07:05 Cholesterol 79 mg/dL (<200) 06/09/17 07:05 LDL Cholesterol Direct 30 mg/dL (75-193) L 06/09/17 07:05 HDL Cholesterol 32 mg/dL (23-92) 06/09/17 07:05 TSH 0.51 uIU/ml (0.34-5.60) 06/09/17 07:05 Urine Source RANDOM 06/09/17 10:02 Urine Color YELLOW 06/09/17 10:02 Urine Clarity HAZY (CLEAR) 06/09/17 10:02 Urine pH 5.5 (4.6 - 8.0) 06/09/17 10:02 Ur Specific [place] >= 1.030 (1.005-1.030) 06/09/17 10:02 Urine Protein TRACE mg/dL (NEGATIVE) 06/09/17 10:02 Urine Glucose (UA) NEGATIVE mg/dL (NEGATIVE) 06/09/17 10:02 Urine Ketones 15 mg/dL (NEGATIVE) H 06/09/17 10:02 Urine Blood NEGATIVE (NEGATIVE) 06/09/17 10:02 Urine Nitrate NEGATIVE (NEGATIVE) 06/09/17 10:02 Urine Bilirubin SMALL (NEGATIVE) H 06/09/17 10:02 Urine Urobilinogen 0.2 E.U./dL (0.2 - 1.0) 06/09/17 10:02 Ur Leukocyte Esterase NEGATIVE (NEGATIVE) 06/09/17 10:02 Urine RBC 2-5 /hpf (0-5) H 06/09/17 10:02 Urine WBC 6-10 /hpf (0-5) 06/09/17 10:02 Ur Epithelial Cells FEW /lpf (FEW) 06/09/17 10:02 Calcium Oxalate Crystal MODERATE /hpf 06/09/17 10:02 Urine Bacteria FEW /hpf (NONE SEEN) 06/09/17 10:02 Urine Yeast FEW /hpf (NONE SEEN) H 06/09/17 10:02 Vancomycin Trough 12.4 ug/mL (5-10) H 06/10/17 14:00 - Physical Exam Vitals and I&O: Vital Signs Temp 96.8 F 06/11/17 08:51 Pulse 78 06/11/17 08:51 Resp 18 06/11/17 08:51 BP 116/60 04/26/18 08:51 Pulse Ox 98 06/11/17 08:51 Intake & Output 06/10/17 06/11/17 06/11/17 18:59 06:59 18:59 Intake Total 350 100 Balance 350 100 Weight (lbs) 74.435 kg Intake: Intake, IV Amount 350 100 Cefepime 2 gm In Dextrose 100 100 5% 100 ml @ 100 mls/hr IV Q12HR [facility] Rx#: [id number] Vancomycin HCl 1.25 gm In 250 Sodium Chloride 0.9% 250 ml @ 165 mls/hr IV Q18H [facility] Rx#:[id number] Other: # Voids 3 # Bowel Movements 3 Weight Source Bedscale Active Medications: Current Medications Acetaminophen/Hydrocodone Bitart ([place] 5mg/325mg) 2 tab PO Q4HR PRN PRN Reason: Pain (Severe) Stop: 08/08/17 04:35 Last Admin: 06/10/17 18:23 Dose: 2 tab Ascorbic Acid (Vitamin C) 500 mg PO DAILY [facility] Stop: 08/08/17 08:59 Last Admin: 06/11/17 09:28 Dose: 500 mg Baclofen (Lioresal) 10 mg PO TID [facility] Stop: 08/08/17 08:59 Last Admin: 06/11/17 09:28 Dose: 10 mg [place] Oil/[place] Balsam/Trypsin (Venelex) 1 appl TP DAILY [facility] Stop: 08/10/17 08:59 Last Admin: 06/11/17 09:37 Dose: 1 appl Diclofenac Sodium (Voltaren) 50 mg PO DAILY [facility] Stop: 08/10/17 08:59 Last Admin: 06/11/17 09:37 Dose: 50 mg Gabapentin (Neurontin) 300 mg PO TID [facility] Stop: 08/08/17 08:59 Last Admin: 06/11/17 09:28 Dose: 300 mg Glipizide (Glucotrol) 5 mg PO BID [facility] Stop: 08/08/17 08:59 Last Admin: 06/10/17 18:17 Dose: Not Given Vancomycin HCl 1.25 gm/ Sodium (Chloride) 250 mls @ 165 mls/hr IV Q18H [facility] Stop: 08/08/17 20:59 Last Admin: 06/10/17 16:39 Dose: 165 mls/hr Cefepime HCl 2 gm/ Dextrose 100 mls @ 100 mls/hr IV Q12HR [facility] Stop: 08/08/17 20:59 Last Admin: 06/11/17 09:38 Dose: 100 mls/hr Insulin Aspart (Novolog Insulin Sliding Scale) 0 units SUBQ ACHS [facility] PRN Reason: Protocol Stop: 08/08/17 07:29 Last Admin: 06/11/17 08:03 Dose: Not Given Lactobacillus Rhamnosus (Culturelle 15b) 1 each PO DAILY [facility] Stop: 08/10/17 08:59 Last Admin: 06/11/17 09:28 Dose: 1 each Loperamide HCl (Imodium) 4 mg PO Q6H PRN PRN Reason: Diarrhea Stop: 08/08/17 20:48 Last Admin: 06/09/17 21:35 Dose: 4 mg Miscellaneous (Vancomycin Iv Per Pharmacy) 1 [facility] PRN PRN PRN Reason: PROTOCOL Stop: 08/08/17 04:45 Miscellaneous (Probiotic Screen) 1 [facility] PRN PRN PRN Reason: PROTOCOL Stop: 08/10/17 08:59 Multivitamins/Vitamin C (Theragran) 1 tab PO DAILY [facility] Stop: 08/08/17 08:59 Last Admin: 06/11/17 09:28 Dose: 1 tab Ondansetron HCl (Zofran) 4 mg IV Q6H PRN PRN Reason: Nausea / Vomiting Stop: 08/08/17 08:16 Pantoprazole Sodium (Protonix) 40 mg PO BIDAC [facility] Stop: 08/08/17 07:29 Last Admin: 06/11/17 09:28 Dose: 40 mg Potassium Chloride (Klor-Con) 20 meq PO BID [facility] Stop: 08/08/17 08:59 Last Admin: 06/11/17 09:28 Dose: 20 meq General: Alert, Oriented x3, No acute distress HEENT: Atraumatic, PERRLA, EOMI Neck: Supple Cardiovascular: Regular rate, Normal S1, Normal S2 Lungs: Clear to auscultation Abdomen: Bowel sounds, Soft Neurological: Normal gait, Normal speech Assessment/Plan - Assessment Assessment: * left sternoclavicular joint osteo * Possible lymphoma check CT abd/p MRI neck noted. may need bone marrow biopsy. check anemia anderson Nutritional Asmnt/Malnutr-PDOC - Dietary Evaluation Malnutrition Findings (Please click <Entered> for more info): Nutritional Asmnt/Malnutrition Start: 06/09/17 15: 36 Text: Status: Complete Freq: Document 06/09/17 15:36 KARLA (Rec: 06/09/17 15:46 KARLA [id number]) Nutritional Asmnt/Malnutrition Patient General Information Nutritional Screening High Risk Consult Diagnosis neck mass Pertinent Medical Hx/Surgical Hx DM, HTN, asthma/COPD, dementia , renal transplant, partial left foot amputation Subjective Information Consult received for diabetic. Pt seen sitting up in bed at time of visit, wake and alert. Pt stated not hungry today, maybe better appetite tommorrow. Pt has no preference about food, every food is ok for him. Current Diet Order/ Nutrition Support CCHO-60gm Pertinent Medications vit C, D5-0.9%ns, glucotrol, novolog, cangomycin, theragran , protonix, kcl Pertinent Labs 06/09 glucose 164-178, POC 160- 227 Nutritional Hx/Data Height 1.7 m Height (Calculated Centimeters) 170.2 Current Weight (lbs) 72.575 kg Weight (Calculated Kilograms) 72.6 Weight (Calculated Grams) 32611.8 [place] Body Weight 148 Body Mass Index (BMI) 25.0 Weight Status Overweight GI Symptoms GI Symptoms None Last BM 06/09 Difficult in: None Skin Integrity/Comment: abrasion to left arm, lump to right knee, left upper neck Estimated Nutritional Goals BEE in Kcals: Using Current wt Calories/Kcals/Kg 23-27 Kcals Calculated 7972-1945 Protein: Using Current wt Protein g/k Protein Calculated 73 Fluid: ml 1679-2336ml (1ml/kcal) Nutritional Problem 1. Problem Problem altered nutrition related labs Etiology hx of DM Signs/Symptoms: glucose 164-178, POC 160-227 Malnutrition Alert Protein-Calorie Malnutrition N/A Is there a minimum of two criteria No selected? Query Text:Check all the applicable criteria. A minimum of two criteria are recommended for diagnosis of either severe or non-severe malnutrition. Intervention/Recommendation Comments 1. Continue with CCHO-60gm diet as ordered. Encouraged oral intake and balanced meal. 2. Monitor PO intake, wt, labs and skin integrity 3. F/U as moderate risk in 3-5 days, 06/12-06/14, PO check Expected Outcomes/Goals Expected Outcomes/Goals 1. PO intake to meet at least 75% of nutritional needs. 2. Wt stability, skin to remain intact, labs to approach WNL.
--- NOTE | 2017-06-11 12:34 | Diagnostic Imaging Report ---
CT abdomen and pelvis with intravenous contrast Indication: Lymphoma Comparison: CT chest on 06/09/2017 and MRI neck on 06/10/2017, Technique: Axial images were obtained from the lung bases to the bilateral proximal femurs with IV contrast. Coronal reconstructions were made. total DLP: 465, CTDI 8.8 FINDINGS: Hypoventilatory atelectatic changes of the lung bases are noted. No evidence of focal hepatic lesions. Exam is limited due to motion. Markedly distended gallbladder is seen with probable gallstones. No focal splenic lesions. Pancreatic gland atrophy is noted. Assessment for focal pancreatic lesion is limited on this exam. No focal adrenal lesions. No hydronephrosis or focal lesions. The prostate gland is enlarged measuring 5.4 x 4 cm. There is mild mass effect upon the base of the bladder. There is minimal diverticulosis. Incomplete distention versus possible bowel wall thickening of the sigmoid colon is noted. Fluid-filled appendix is noted without surrounding inflammatory changes. Postsurgical changes of midline anterior abdominal wall is noted. No evidence of mesenteric or retroperitoneal lymphadenopathy. Diffuse atherosclerotic vascular disease noted. Diffuse degenerative changes of the spine are noted with scoliosis. There appear to be 6 lumbar lumbar vertebral bodies. There is a 1.6 cm lesion at what is assumed to be L3 which may represent a hemangioma. IMPRESSION: No evidence of mesenteric or retroperitoneal lymphadenopathy. Markedly distended gallbladder with possible gallstones. Recommend follow-up with ultrasound. Minimal diverticulosis of the sigmoid colon. Incomplete distention versus less likely mild bowel wall thickening of the sigmoid colon is noted. Inflammatory process in this region is considered less likely but cannot be completely excluded. Please correlate with clinical findings. Prominent prostate gland with mass effect upon the base the urinary bladder. Diffuse atherosclerotic vascular disease. Postsurgical changes of anterior abdominal wall, correlate clinically. Advanced degenerative changes with spinal scoliosis. There appear to be 6 lumbar type vertebral bodies. A 1.6 cm lesion is seen at what is assumed to the L3 and is probably a vertebral body hemangioma. Please correlate with old exams available. Consider follow-up surveillance.
--- NOTE | 2017-06-11 18:52 | Infectious Disease Prog Note ---
Infectious Disease Subjective - Review of Systems Service Date: 06/11/17 Subjective: There is no new change, no fever. Infectious Disease Objective - Results Result Diagrams: 06/10/17 05:50 06/10/17 05:50 Recent Labs: Laboratory Last Values WBC 10.8 Th/cmm (4.8-10.8) 06/10/17 05:50 RBC 3.71 Mil/cmm (3.80-5.80) L 06/10/17 05:50 Hgb 10.0 gm/dL (12-16) L 06/10/17 05:50 Hct 29.8 % (41.0-60) L 06/10/17 05:50 MCV 80.2 fl (80-99) 06/10/17 05:50 MCH 27.0 pg (27.0-31.0) 06/10/17 05:50 MCHC Differential 33.7 pg (28.0-36.0) 06/10/17 05:50 RDW 15.3 % (11.5-20.0) 06/10/17 05:50 Plt Count 408 Th/cmm (150-400) H 06/10/17 05:50 MPV 7.5 fl 06/10/17 05:50 Neutrophils % 75.4 % (40.0-80.0) 06/10/17 05:50 Lymphocytes % 15.1 % (20.0-50.0) L 06/10/17 05:50 Monocytes % 6.7 % (2.0-10.0) 06/10/17 05:50 Eosinophils % 2.4 % (0.0-5.0) 06/10/17 05:50 Basophils % 0.4 % (0.0-2.0) 06/10/17 05:50 ESR 90 mm/hr (0-20) H 06/10/17 05:50 PT 11.8 SECONDS (9.5-11.5) H 06/09/17 00:56 INR 1.12 (0.5-1.4) 06/09/17 00:56 PTT (Actin FS) 28.6 SECONDS (26.0-38.0) 06/09/17 00:56 Sodium 137 mEq/L (136-145) 06/10/17 05:50 Potassium 4.7 mEq/L (3.5-5.1) 06/10/17 05:50 Chloride 106 mEq/L (98-107) 06/10/17 05:50 Carbon Dioxide 25.5 mEq/L (21.0-31.0) 06/10/17 05:50 Anion Gap 10.2 (7.0-16.0) 06/10/17 05:50 BUN 18 mg/dL (7-25) 06/10/17 05:50 Creatinine 0.7 mg/dL (0.7-1.3) 06/10/17 05:50 Est GFR ( Amer) TNP 06/10/17 05:50 Est GFR (Non-Af Amer) TNP 06/10/17 05:50 BUN/Creatinine Ratio 25.7 06/10/17 05:50 Glucose 102 mg/dL (70-105) D 06/10/17 05:50 POC Glucose 174 MG/DL (70 - 105) H 06/11/17 17:04 Hemoglobin A1c % 9.0 % (4.0-6.0) H 06/09/17 07:05 Whole Bld Lactic Acid 0.80 mmol/L (0.60-1.99) 06/09/17 Unknown Calcium 9.3 mg/dL (8.6-10.3) 06/10/17 05:50 Total Bilirubin 0.4 mg/dL (0.3-1.0) 06/10/17 05:50 AST 13 U/L (13-39) 06/10/17 05:50 ALT 7 U/L (7-52) 06/10/17 05:50 Alkaline Phosphatase 119 U/L (34-104) H 06/10/17 05:50 Lactate Dehydrogenase 118 U/L (140-271) L 06/10/17 05:50 C-Reactive Protein 7.9 mg/dL (0.0-0.9) H 06/09/17 07:05 Total Protein 6.9 gm/dL (6.0-8.3) 06/10/17 05:50 Albumin 3.0 gm/dL (4.2-5.5) L 06/10/17 05:50 Globulin 3.9 gm/dL 06/10/17 05:50 Albumin/Globulin Ratio 0.8 (1.0-1.8) L 06/10/17 05:50 Triglycerides 85 mg/dL (<150) 06/09/17 07:05 Cholesterol 79 mg/dL (<200) 06/09/17 07:05 LDL Cholesterol Direct 30 mg/dL (75-193) L 06/09/17 07:05 HDL Cholesterol 32 mg/dL (23-92) 06/09/17 07:05 TSH 0.51 uIU/ml (0.34-5.60) 06/09/17 07:05 Urine Source RANDOM 06/09/17 10:02 Urine Color YELLOW 06/09/17 10:02 Urine Clarity HAZY (CLEAR) 06/09/17 10:02 Urine pH 5.5 (4.6 - 8.0) 06/09/17 10:02 Ur Specific [place] >= 1.030 (1.005-1.030) 06/09/17 10:02 Urine Protein TRACE mg/dL (NEGATIVE) 06/09/17 10:02 Urine Glucose (UA) NEGATIVE mg/dL (NEGATIVE) 06/09/17 10:02 Urine Ketones 15 mg/dL (NEGATIVE) H 06/09/17 10:02 Urine Blood NEGATIVE (NEGATIVE) 06/09/17 10:02 Urine Nitrate NEGATIVE (NEGATIVE) 06/09/17 10:02 Urine Bilirubin SMALL (NEGATIVE) H 06/09/17 10:02 Urine Urobilinogen 0.2 E.U./dL (0.2 - 1.0) 06/09/17 10:02 Ur Leukocyte Esterase NEGATIVE (NEGATIVE) 06/09/17 10:02 Urine RBC 2-5 /hpf (0-5) H 06/09/17 10:02 Urine WBC 6-10 /hpf (0-5) 06/09/17 10:02 Ur Epithelial Cells FEW /lpf (FEW) 06/09/17 10:02 Calcium Oxalate Crystal MODERATE /hpf 06/09/17 10:02 Urine Bacteria FEW /hpf (NONE SEEN) 06/09/17 10:02 Urine Yeast FEW /hpf (NONE SEEN) H 06/09/17 10:02 Vancomycin Trough 12.4 ug/mL (5-10) H 06/10/17 14:00 - Physical Exam Vitals and I&O: Vital Signs Temp 97.2 F 06/11/17 15:43 Pulse 67 04/26/18 15:43 Resp 17 06/11/17 15:43 BP 120/72 06/11/17 15:43 Pulse Ox 97 06/11/17 15:43 Intake & Output 06/10/17 06/11/17 06/11/17 18:59 06:59 18:59 Intake Total 350 100 650 Balance 350 100 650 Weight (lbs) 74.435 kg 74.389 kg Intake: Intake, IV Amount 350 100 350 Cefepime 2 gm In Dextrose 100 100 100 5% 100 ml @ 100 mls/hr IV Q12HR [facility] Rx#: [id number] Vancomycin HCl 1.25 gm In 250 250 Sodium Chloride 0.9% 250 ml @ 165 mls/hr IV Q18H [facility] Rx#:[id number] Oral 300 Other: # Voids 3 3 # Bowel Movements 3 1 Weight Source Bedscale Bedscale Active Medications: Current Medications Acetaminophen/Hydrocodone Bitart ([place] 5mg/325mg) 2 tab PO Q4HR PRN PRN Reason: Pain (Severe) Stop: 08/08/17 04:35 Last Admin: 06/10/17 18:23 Dose: 2 tab Ascorbic Acid (Vitamin C) 500 mg PO DAILY [facility] Stop: 08/08/17 08:59 Last Admin: 06/11/17 09:28 Dose: 500 mg Baclofen (Lioresal) 10 mg PO TID [facility] Stop: 08/08/17 08:59 Last Admin: 06/11/17 17:00 Dose: 10 mg [place] Oil/[place] Balsam/Trypsin (Venelex) 1 appl TP DAILY [facility] Stop: 08/10/17 08:59 Last Admin: 06/11/17 09:37 Dose: 1 appl Diclofenac Sodium (Voltaren) 50 mg PO DAILY [facility] Stop: 08/10/17 08:59 Last Admin: 06/11/17 09:37 Dose: 50 mg Gabapentin (Neurontin) 300 mg PO TID [facility] Stop: 08/08/17 08:59 Last Admin: 06/11/17 17:00 Dose: 300 mg Glipizide (Glucotrol) 5 mg PO BID [facility] Stop: 08/08/17 08:59 Last Admin: 06/11/17 17:12 Dose: 5 mg Vancomycin HCl 1.25 gm/ Sodium (Chloride) 250 mls @ 165 mls/hr IV Q18H [facility] Stop: 08/08/17 20:59 Last Admin: 06/11/17 11:00 Dose: 165 mls/hr Cefepime HCl 2 gm/ Dextrose 100 mls @ 100 mls/hr IV Q12HR [facility] Stop: 08/08/17 20:59 Last Infusion: 06/11/17 10:30 Dose: Infused Insulin Aspart (Novolog Insulin Sliding Scale) 0 units SUBQ ACHS JACK PRN Reason: Protocol Stop: 08/08/17 07:29 Last Admin: 06/11/17 17:11 Dose: 2 units Insulin Detemir (Levemir Insulin) 5 units SUBQ HS JACK PRN Reason: Protocol Stop: 08/10/17 20:59 Lactobacillus Rhamnosus (Culturelle 15b) 1 each PO DAILY [facility] Stop: 08/10/17 08:59 Last Admin: 06/11/17 09:28 Dose: 1 each Loperamide HCl (Imodium) 4 mg PO Q6H PRN PRN Reason: Diarrhea Stop: 08/08/17 20:48 Last Admin: 06/09/17 21:35 Dose: 4 mg Miscellaneous (Vancomycin Iv Per Pharmacy) 1 ea PRN PRN PRN Reason: PROTOCOL Stop: 08/08/17 04:45 Miscellaneous (Probiotic Screen) 1 ea PRN PRN PRN Reason: PROTOCOL Stop: 08/10/17 08:59 Multivitamins/Vitamin C (Theragran) 1 tab PO DAILY [facility] Stop: 08/08/17 08:59 Last Admin: 06/11/17 09:28 Dose: 1 tab Ondansetron HCl (Zofran) 4 mg IV Q6H PRN PRN Reason: Nausea / Vomiting Stop: 08/08/17 08:16 Pantoprazole Sodium (Protonix) 40 mg PO BIDAC [facility] Stop: 08/08/17 07:29 Last Admin: 06/11/17 17:12 Dose: 40 mg Potassium Chloride (Klor-Con) 20 meq PO BID [facility] Stop: 08/08/17 08:59 Last Admin: 06/11/17 17:12 Dose: 20 meq General: no acute distress, well developed, well nourished HEENT: atraumatic, normocephalic, PERRLA, EOMI Neck: supple, other (There is swelling of Left sterno clavicular joint.), no thyromegaly, no lymphadenopathy Cardiovascular: S1S2, regular Lungs: clear to auscultation bilaterally, clear to percussion Abdomen: soft, no tender Extremities: no cyanosis, no clubbing, no edema Neurological: awake, alert, oriented Skin: intact Infectious Disease Assmt/Plan - Assessment Assessment: 1. Left lower neck swelling, symptomatic at this time. 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 Partially treated. ESR 90 and CRP 7.9. MRI report was reviewed. abscess and osteomyelitis of the left sternoclavicular joint and two fluid collections 2. Diabetes mellitus type 2. 3. Hypertension. 4. COPD. 5. Dementia. 6. DJD. 7. GERD. 8. Diabetic ulcer of left foot. 9. Left foot TMA. - Plan Plan: Continue vancomycin IV and cefepime IV. meanwhile, follow up on serologies fo cocci and TB Gold quantiferon. Will need percutaneous drainage of fluid and bone biopsy to reach final diagnosis. may need ortho eval. ? debridement of the left sternoclavicular joint. If percutaneous drainage of the fluid collection or bone biopsy performed, please send the following tests. Fluid: Cell count and differential/ gram stain and culture/susceptibility. AFB smear and cultures. Fungal smear and cultures. Cytology. Nutritional Asmnt/Malnutr-PDOC - Dietary Evaluation Malnutrition Findings (Please click <Entered> for more info): Nutritional Asmnt/Malnutrition Start: 06/09/17 15: 36 Text: Status: Complete Freq: Document 06/09/17 15:36 HEN (Rec: 06/09/17 15:46 [email or web address]) Nutritional Asmnt/Malnutrition Patient General Information Nutritional Screening High Risk Consult Diagnosis neck mass Pertinent Medical Hx/Surgical Hx DM, HTN, asthma/COPD, dementia , renal transplant, partial left foot amputation Subjective Information Consult received for diabetic. Pt seen sitting up in bed at time of visit, wake and alert. Pt stated not hungry today, maybe better appetite tommorrow. Pt has no preference about food, every food is ok for him. Current Diet Order/ Nutrition Support CCHO-60gm Pertinent Medications vit C, D5-0.9%ns, glucotrol, novolog, cangomycin, theragran , protonix, kcl Pertinent Labs 06/09 glucose 164-178, POC 160- 227 Nutritional Hx/Data Height 1.7 m Height (Calculated Centimeters) 170.2 Current Weight (lbs) 72.575 kg Weight (Calculated Kilograms) 72.6 Weight (Calculated Grams) 54382.8 [place] Body Weight 148 Body Mass Index (BMI) 25.0 Weight Status Overweight GI Symptoms GI Symptoms None Last BM 06/09 Difficult in: None Skin Integrity/Comment: abrasion to left arm, lump to right knee, left upper neck Estimated Nutritional Goals BEE in Kcals: Using Current wt Calories/Kcals/Kg 23-27 Kcals Calculated 2515-4349 Protein: Using Current wt Protein g/k Protein Calculated 73 Fluid: ml 1679-2336ml (1ml/kcal) Nutritional Problem 1. Problem Problem altered nutrition related labs Etiology hx of DM Signs/Symptoms: glucose 164-178, POC 160-227 Malnutrition Alert Protein-Calorie Malnutrition N/A Is there a minimum of two criteria No selected? Query Text:Check all the applicable criteria. A minimum of two criteria are recommended for diagnosis of either severe or non-severe malnutrition. Intervention/Recommendation Comments 1. [facility] as ordered. Encouraged oral intake and balanced meal. 2. Monitor PO intake, wt, labs and skin integrity 3. F/U as moderate risk in 3-5 days, 06/12-06/14, PO check Expected Outcomes/Goals Expected Outcomes/Goals 1. PO intake to meet at least 75% of nutritional needs. 2. Wt stability, skin to remain intact, labs to approach WNL.
[2017-06-11] MEDS ORDERED: Insulin Detemir 100 units/mL 10mL Vial SUBQ SCH (21:00)
--- NOTE | 2017-06-12 08:04 | General Progress Note ---
Subjective - Review of Systems Service Date: 06/12/17 Subjective: Patient was seen and examined. No acute distress. afebrile. NPO since midnight. Patient scheduled for CT abd/pelvis and bone scan. Objective - Results Result Diagrams: 06/10/17 05:50 06/10/17 05:50 Recent Labs: Laboratory Last Values WBC 10.8 Th/cmm (4.8-10.8) 06/10/17 05:50 RBC 3.71 Mil/cmm (3.80-5.80) L 06/10/17 05:50 Hgb 10.0 gm/dL (12-16) L 06/10/17 05:50 Hct 29.8 % (41.0-60) L 06/10/17 05:50 MCV 80.2 fl (80-99) 06/10/17 05:50 MCH 27.0 pg (27.0-31.0) 06/10/17 05:50 MCHC Differential 33.7 pg (28.0-36.0) 06/10/17 05:50 RDW 15.3 % (11.5-20.0) 06/10/17 05:50 Plt Count 408 Th/cmm (150-400) H 06/10/17 05:50 MPV 7.5 fl 06/10/17 05:50 Neutrophils % 75.4 % (40.0-80.0) 06/10/17 05:50 Lymphocytes % 15.1 % (20.0-50.0) L 06/10/17 05:50 Monocytes % 6.7 % (2.0-10.0) 06/10/17 05:50 Eosinophils % 2.4 % (0.0-5.0) 06/10/17 05:50 Basophils % 0.4 % (0.0-2.0) 06/10/17 05:50 ESR 90 mm/hr (0-20) H 06/10/17 05:50 PT 11.8 SECONDS (9.5-11.5) H 06/09/17 00:56 INR 1.12 (0.5-1.4) 06/09/17 00:56 PTT (Actin FS) 28.6 SECONDS (26.0-38.0) 06/09/17 00:56 Sodium 137 mEq/L (136-145) 06/10/17 05:50 Potassium 4.7 mEq/L (3.5-5.1) 06/10/17 05:50 Chloride 106 mEq/L (98-107) 06/10/17 05:50 Carbon Dioxide 25.5 mEq/L (21.0-31.0) 06/10/17 05:50 Anion Gap 10.2 (7.0-16.0) 06/10/17 05:50 BUN 18 mg/dL (7-25) 06/10/17 05:50 Creatinine 0.7 mg/dL (0.7-1.3) 06/10/17 05:50 Est GFR ( Amer) TNP 06/10/17 05:50 Est GFR (Non-Af Amer) TNP 06/10/17 05:50 BUN/Creatinine Ratio 25.7 06/10/17 05:50 Glucose 102 mg/dL (70-105) D 06/10/17 05:50 POC Glucose 212 MG/DL (70 - 105) H 06/12/17 05:44 Hemoglobin A1c % 9.0 % (4.0-6.0) H 06/09/17 07:05 Whole Bld Lactic Acid 0.80 mmol/L (0.60-1.99) 06/09/17 Unknown Calcium 9.3 mg/dL (8.6-10.3) 06/10/17 05:50 Total Bilirubin 0.4 mg/dL (0.3-1.0) 06/10/17 05:50 AST 13 U/L (13-39) 06/10/17 05:50 ALT 7 U/L (7-52) 06/10/17 05:50 Alkaline Phosphatase 119 U/L (34-104) H 06/10/17 05:50 Lactate Dehydrogenase 118 U/L (140-271) L 06/10/17 05:50 C-Reactive Protein 7.9 mg/dL (0.0-0.9) H 06/09/17 07:05 Total Protein 6.9 gm/dL (6.0-8.3) 06/10/17 05:50 Albumin 3.0 gm/dL (4.2-5.5) L 06/10/17 05:50 Globulin 3.9 gm/dL 06/10/17 05:50 Albumin/Globulin Ratio 0.8 (1.0-1.8) L 06/10/17 05:50 Triglycerides 85 mg/dL (<150) 06/09/17 07:05 Cholesterol 79 mg/dL (<200) 06/09/17 07:05 LDL Cholesterol Direct 30 mg/dL (75-193) L 06/09/17 07:05 HDL Cholesterol 32 mg/dL (23-92) 06/09/17 07:05 TSH 0.51 uIU/ml (0.34-5.60) 06/09/17 07:05 Urine Source RANDOM 06/09/17 10:02 Urine Color YELLOW 06/09/17 10:02 Urine Clarity HAZY (CLEAR) 06/09/17 10:02 Urine pH 5.5 (4.6 - 8.0) 06/09/17 10:02 Ur Specific [place] >= 1.030 (1.005-1.030) 06/09/17 10:02 Urine Protein TRACE mg/dL (NEGATIVE) 06/09/17 10:02 Urine Glucose (UA) NEGATIVE mg/dL (NEGATIVE) 06/09/17 10:02 Urine Ketones 15 mg/dL (NEGATIVE) H 06/09/17 10:02 Urine Blood NEGATIVE (NEGATIVE) 06/09/17 10:02 Urine Nitrate NEGATIVE (NEGATIVE) 06/09/17 10:02 Urine Bilirubin SMALL (NEGATIVE) H 06/09/17 10:02 Urine Urobilinogen 0.2 E.U./dL (0.2 - 1.0) 06/09/17 10:02 Ur Leukocyte Esterase NEGATIVE (NEGATIVE) 06/09/17 10:02 Urine RBC 2-5 /hpf (0-5) H 06/09/17 10:02 Urine WBC 6-10 /hpf (0-5) 06/09/17 10:02 Ur Epithelial Cells FEW /lpf (FEW) 06/09/17 10:02 Calcium Oxalate Crystal MODERATE /hpf 06/09/17 10:02 Urine Bacteria FEW /hpf (NONE SEEN) 06/09/17 10:02 Urine Yeast FEW /hpf (NONE SEEN) H 06/09/17 10:02 Vancomycin Trough 12.4 ug/mL (5-10) H 06/10/17 14:00 - Physical Exam Vitals and I&O: Vital Signs Temp 97.6 F 06/12/17 07:53 Pulse 77 06/12/17 07:53 Resp 17 06/12/17 07:53 BP 124/59 06/12/17 07:53 Pulse Ox 97 06/12/17 07:53 Intake & Output 06/11/17 06/12/17 06/12/17 18:59 06:59 18:59 Intake Total 900 600 Output Total 0 Balance 900 600 Weight (lbs) 74.389 kg 74.389 kg Intake: Intake, IV Amount 600 Cefepime 2 gm In Dextrose 100 5% 100 ml @ 100 mls/hr IV Q12HR [facility] Rx#: [id number] Vancomycin HCl 1.25 gm In 500 Sodium Chloride 0.9% 250 ml @ 165 mls/hr IV Q18H [facility] Rx#:[id number] Oral 300 600 Output: Stool 0 Other: # Voids 3 3 # Bowel Movements 1 0 Weight Source Bedscale Bedscale Active Medications: Current Medications Acetaminophen/Hydrocodone Bitart ([place] 5mg/325mg) 2 tab PO Q4HR PRN PRN Reason: Pain (Severe) Stop: 08/08/17 04:35 Last Admin: 06/10/17 18:23 Dose: 2 tab Ascorbic Acid (Vitamin C) 500 mg PO DAILY [facility] Stop: 08/08/17 08:59 Last Admin: 06/11/17 09:28 Dose: 500 mg Baclofen (Lioresal) 10 mg PO TID [facility] Stop: 08/08/17 08:59 Last Admin: 06/11/17 21:16 Dose: 10 mg [place] Oil/[place] Balsam/Trypsin (Venelex) 1 appl TP DAILY [facility] Stop: 08/10/17 08:59 Last Admin: 06/11/17 09:37 Dose: 1 appl Diclofenac Sodium (Voltaren) 50 mg PO DAILY [facility] Stop: 08/10/17 08:59 Last Admin: 06/11/17 09:37 Dose: 50 mg Gabapentin (Neurontin) 300 mg PO TID [facility] Stop: 08/08/17 08:59 Last Admin: 06/11/17 21:16 Dose: 300 mg Glipizide (Glucotrol) 5 mg PO BID [facility] Stop: 08/08/17 08:59 Last Admin: 06/11/17 17:12 Dose: 5 mg Vancomycin HCl 1.25 gm/ Sodium (Chloride) 250 mls @ 165 mls/hr IV Q18H [facility] Stop: 08/08/17 20:59 Last Admin: 06/12/17 04:09 Dose: 165 mls/hr Cefepime HCl 2 gm/ Dextrose 100 mls @ 100 mls/hr IV Q12HR [facility] Stop: 08/08/17 20:59 Last Admin: 06/11/17 21:18 Dose: 100 mls/hr Insulin Aspart (Novolog Insulin Sliding Scale) 0 units SUBQ ACHS [facility]ACK PRN Reason: Protocol Stop: 08/08/17 07:29 Last Admin: 06/11/17 22:59 Dose: Not Given Insulin Detemir (Levemir Insulin) 10 units SUBQ HS [facility]ACK PRN Reason: Protocol Stop: 08/11/17 20:59 Lactobacillus Rhamnosus (Culturelle 15b) 1 each PO DAILY [facility] Stop: 08/10/17 08:59 Last Admin: 06/11/17 09:28 Dose: 1 each Loperamide HCl (Imodium) 4 mg PO Q6H PRN PRN Reason: Diarrhea Stop: 08/08/17 20:48 Last Admin: 06/09/17 21:35 Dose: 4 mg Miscellaneous (Vancomycin Iv Per Pharmacy) 1 ea PRN PRN PRN Reason: PROTOCOL Stop: 08/08/17 04:45 Miscellaneous (Probiotic Screen) 1 ea PRN PRN PRN Reason: PROTOCOL Stop: 08/10/17 08:59 Multivitamins/Vitamin C (Theragran) 1 tab PO DAILY [facility] Stop: 08/08/17 08:59 Last Admin: 06/11/17 09:28 Dose: 1 tab Ondansetron HCl (Zofran) 4 mg IV Q6H PRN PRN Reason: Nausea / Vomiting Stop: 08/08/17 08:16 Pantoprazole Sodium (Protonix) 40 mg PO BIDAC [facility] Stop: 08/08/17 07:29 Last Admin: 06/11/17 17:12 Dose: 40 mg Potassium Chloride (Klor-Con) 20 meq PO BID [facility] Stop: 08/08/17 08:59 Last Admin: 06/11/17 17:12 Dose: 20 meq General: Alert, Oriented x3, No acute distress HEENT: Atraumatic, PERRLA, EOMI Neck: Supple Cardiovascular: Regular rate, Normal S1, Normal S2 Lungs: Clear to auscultation Abdomen: Bowel sounds, Soft Neurological: Normal gait, Normal speech Assessment/Plan - Assessment Assessment: Left lower neck swelling, symptomatic at this time. 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 Partially treated. ESR 90 and CRP 7.9. abscess and osteomyelitisof the left sternoclavicular joint and two fluid collections. DM type 2 COPD Dementia DJD GERD Diabetic left foot ulcer HTN leukocytosis right knee mass Left foot TMA - Plan Plan: MRA Chest CT Abd/pelvis Bone Scan ID consult Surgical consult Hem/Onc consult Ortho consult repeat CBC,CMP Vancomycin per pharmacy IV fluids continue home meds. PT eval for LTAC evaluation. Nutritional Asmnt/Malnutr-PDOC - Dietary Evaluation Malnutrition Findings (Please click <Entered> for more info): Nutritional Asmnt/Malnutrition Start: 06/09/17 15: 36 Text: Status: Complete Freq: Document 06/09/17 15:36 [place] (Rec: 06/09/17 15:46 [facility] Nutritional Asmnt/Malnutrition Patient General Information Nutritional Screening High Risk Consult Diagnosis neck mass Pertinent Medical Hx/Surgical Hx DM, HTN, asthma/COPD, dementia , renal transplant, partial left foot amputation Subjective Information Consult received for diabetic. Pt seen sitting up in bed at time of visit, wake and alert. Pt stated not hungry today, maybe better appetite tommorrow. Pt has no preference about food, every food is ok for him. Current Diet Order/ Nutrition Support CCHO-60gm Pertinent Medications vit C, D5-0.9%ns, glucotrol, novolog, cangomycin, theragran , protonix, kcl Pertinent Labs 06/09 glucose 164-178, POC 160- 227 Nutritional Hx/Data Height 1.7 m Height (Calculated Centimeters) 170.2 Current Weight (lbs) 72.575 kg Weight (Calculated Kilograms) 72.6 Weight (Calculated Grams) 40780.8 [place] Body Weight 148 Body Mass Index (BMI) 25.0 Weight Status Overweight GI Symptoms GI Symptoms None Last BM 06/09 Difficult in: None Skin Integrity/Comment: abrasion to left arm, lump to right knee, left upper neck Estimated Nutritional Goals BEE in Kcals: Using Current wt Calories/Kcals/Kg 23-27 Kcals Calculated 2584-6994 Protein: Using Current wt Protein g/k Protein Calculated 73 Fluid: ml 1679-2336ml (1ml/kcal) Nutritional Problem 1. Problem Problem altered nutrition related labs Etiology hx of DM Signs/Symptoms: glucose 164-178, POC 160-227 Malnutrition Alert Protein-Calorie Malnutrition N/A Is there a minimum of two criteria No selected? Query Text:Check all the applicable criteria. A minimum of two criteria are recommended for diagnosis of either severe or non-severe malnutrition. Intervention/Recommendation Comments 1. Continue with CCHO-60gm diet as ordered. Encouraged oral intake and balanced meal. 2. Monitor PO intake, wt, labs and skin integrity 3. F/U as moderate risk in 3-5 days, 06/12-06/14, PO check Expected Outcomes/Goals Expected Outcomes/Goals 1. PO intake to meet at least 75% of nutritional needs. 2. Wt stability, skin to remain intact, labs to approach WNL.
[2017-06-12] MEDS: INSULIN ASPART SLIDING SCALE 100 UNITS/ML UNIT SUBQ SCH ×4 (08:48→20:28)
[2017-06-12] MEDS: Multivitamin Tab PO SCH (08:52)
[2017-06-12] MEDS: Potassium Chloride 20 mEq ER Tab PO SCH ×2 (08:52→16:00)
[2017-06-12] MEDS: Lactobacillus Rhamnosus GG 15 Billion CFU CAP.SPRINK PO SCH (08:52)
[2017-06-12] MEDS: Venelex 60gm Tube TP SCH (08:53)
[2017-06-12] MEDS: Pantoprazole 40 mg EC Tab PO SCH ×2 (08:55→15:46)
--- NOTE | 2017-06-12 10:02 | Progress Notes ---
DATE: 06/12/2017 PSYCHIATRIC PROGRESS NOTE SUBJECTIVE: Chart reviewed and the patient interviewed. Also discussed the patient's condition with the staff and reviewed records. The patient is calm and he is not agitated or irritable. He is also still compliant with taking his medications. No behavioral problems. He also is able to interact slightly more. ASSESSMENT: The patient is less depressed and no behavioral problems. TREATMENT PLAN: Continue to monitor his behavior and current treatment and will continue to follow up. [facility]# [id number]
--- NOTE | 2017-06-12 11:10 | Consultation ---
DATE OF CONSULTATION: 06/11/2017 ORTHOPEDIC SURGERY CONSULTATION HISTORY: The patient is a 76-year-old man admitted to [facility] via the Emergency Room on 06/09/2017 with a painful left neck and upper chest wall mass noticed recently at the intermediate where he resides. He is admitted for further workup and treatment. The record indicates he has a history of hypertension, status post renal transplant, diabetes. He is found to have a mass on his right thigh. I was called in orthopedic consultation regarding this mass on the thigh. I cannot get much history from the patient. He did indicate he has had the mass on his leg for "a long time." It does not cause him any pain or other symptoms. PHYSICAL EXAMINATION: The patient was examined in his hospital room at [facility]. He is able to stand and walk with a little assistance. He was noted to have a mid metatarsal amputation of the left foot. The lower medial aspect of the right thigh revealed a 10 cm diameter, 7 cm raised fluctuant mass. It feels almost cystic. There are no skin changes over it. There is no surrounding inflammation or edema. There is no drainage. The mass is not tender. X-RAYS: I reviewed images in the PACS of the right thigh and femur, the bone is intact and normal. The soft tissue mass can be seen and it is homogenous in consistency. ORTHOPEDIC IMPRESSION: This mass is probably a lipoma or other benign lesion. I attempted to discuss the situation with the patient and he indicated he did not want to have surgery or have anything done about the mass on his leg. I think this is a reasonable decision. It appears benign and of a longstanding nature. If he did wish surgery, it would be a relatively simple thing to excise the mass and send it for pathology. Thank you for this interesting referral. JOB# [id number]
--- NOTE | 2017-06-12 13:52 | Infectious Disease Prog Note ---
Infectious Disease Subjective - Review of Systems Service Date: 06/12/17 Subjective: There is no new change, no fever. Infectious Disease Objective - Results Result Diagrams: 06/10/17 05:50 06/10/17 05:50 Recent Labs: Laboratory Last Values WBC 10.8 Th/cmm (4.8-10.8) 06/10/17 05:50 RBC 3.71 Mil/cmm (3.80-5.80) L 06/10/17 05:50 Hgb 10.0 gm/dL (12-16) L 06/10/17 05:50 Hct 29.8 % (41.0-60) L 06/10/17 05:50 MCV 80.2 fl (80-99) 06/10/17 05:50 MCH 27.0 pg (27.0-31.0) 06/10/17 05:50 MCHC Differential 33.7 pg (28.0-36.0) 06/10/17 05:50 RDW 15.3 % (11.5-20.0) 06/10/17 05:50 Plt Count 408 Th/cmm (150-400) H 06/10/17 05:50 MPV 7.5 fl 06/10/17 05:50 Neutrophils % 75.4 % (40.0-80.0) 06/10/17 05:50 Lymphocytes % 15.1 % (20.0-50.0) L 06/10/17 05:50 Monocytes % 6.7 % (2.0-10.0) 06/10/17 05:50 Eosinophils % 2.4 % (0.0-5.0) 06/10/17 05:50 Basophils % 0.4 % (0.0-2.0) 06/10/17 05:50 ESR 90 mm/hr (0-20) H 06/10/17 05:50 PT 11.8 SECONDS (9.5-11.5) H 06/09/17 00:56 INR 1.12 (0.5-1.4) 06/09/17 00:56 PTT (Actin FS) 28.6 SECONDS (26.0-38.0) 06/09/17 00:56 Sodium 137 mEq/L (136-145) 06/10/17 05:50 Potassium 4.7 mEq/L (3.5-5.1) 06/10/17 05:50 Chloride 106 mEq/L (98-107) 06/10/17 05:50 Carbon Dioxide 25.5 mEq/L (21.0-31.0) 06/10/17 05:50 Anion Gap 10.2 (7.0-16.0) 06/10/17 05:50 BUN 18 mg/dL (7-25) 06/10/17 05:50 Creatinine 0.7 mg/dL (0.7-1.3) 06/10/17 05:50 Est GFR ( Amer) TNP 06/10/17 05:50 Est GFR (Non-Af Amer) TNP 06/10/17 05:50 BUN/Creatinine Ratio 25.7 06/10/17 05:50 Glucose 102 mg/dL (70-105) D 06/10/17 05:50 POC Glucose 266 MG/DL (70 - 105) H 06/12/17 12:25 Hemoglobin A1c % 9.0 % (4.0-6.0) H 06/09/17 07:05 Whole Bld Lactic Acid 0.80 mmol/L (0.60-1.99) 06/09/17 Unknown Calcium 9.3 mg/dL (8.6-10.3) 06/10/17 05:50 Total Bilirubin 0.4 mg/dL (0.3-1.0) 06/10/17 05:50 AST 13 U/L (13-39) 06/10/17 05:50 ALT 7 U/L (7-52) 06/10/17 05:50 Alkaline Phosphatase 119 U/L (34-104) H 06/10/17 05:50 Lactate Dehydrogenase 118 U/L (140-271) L 06/10/17 05:50 C-Reactive Protein 7.9 mg/dL (0.0-0.9) H 06/09/17 07:05 Total Protein 6.9 gm/dL (6.0-8.3) 06/10/17 05:50 Albumin 3.0 gm/dL (4.2-5.5) L 06/10/17 05:50 Globulin 3.9 gm/dL 06/10/17 05:50 Albumin/Globulin Ratio 0.8 (1.0-1.8) L 06/10/17 05:50 Triglycerides 85 mg/dL (<150) 06/09/17 07:05 Cholesterol 79 mg/dL (<200) 06/09/17 07:05 LDL Cholesterol Direct 30 mg/dL (75-193) L 06/09/17 07:05 HDL Cholesterol 32 mg/dL (23-92) 06/09/17 07:05 TSH 0.51 uIU/ml (0.34-5.60) 06/09/17 07:05 Urine Source RANDOM 06/09/17 10:02 Urine Color YELLOW 06/09/17 10:02 Urine Clarity HAZY (CLEAR) 06/09/17 10:02 Urine pH 5.5 (4.6 - 8.0) 06/09/17 10:02 Ur Specific [place] >= 1.030 (1.005-1.030) 06/09/17 10:02 Urine Protein TRACE mg/dL (NEGATIVE) 06/09/17 10:02 Urine Glucose (UA) NEGATIVE mg/dL (NEGATIVE) 06/09/17 10:02 Urine Ketones 15 mg/dL (NEGATIVE) H 06/09/17 10:02 Urine Blood NEGATIVE (NEGATIVE) 06/09/17 10:02 Urine Nitrate NEGATIVE (NEGATIVE) 06/09/17 10:02 Urine Bilirubin SMALL (NEGATIVE) H 06/09/17 10:02 Urine Urobilinogen 0.2 E.U./dL (0.2 - 1.0) 06/09/17 10:02 Ur Leukocyte Esterase NEGATIVE (NEGATIVE) 06/09/17 10:02 Urine RBC 2-5 /hpf (0-5) H 06/09/17 10:02 Urine WBC 6-10 /hpf (0-5) 06/09/17 10:02 Ur Epithelial Cells FEW /lpf (FEW) 06/09/17 10:02 Calcium Oxalate Crystal MODERATE /hpf 06/09/17 10:02 Urine Bacteria FEW /hpf (NONE SEEN) 06/09/17 10:02 Urine Yeast FEW /hpf (NONE SEEN) H 06/09/17 10:02 Vancomycin Trough 12.4 ug/mL (5-10) H 06/10/17 14:00 - Physical Exam Vitals and I&O: Vital Signs Temp 97.3 F 06/12/17 11:53 Pulse 92 04/27/18 11:53 Resp 19 06/12/17 12:55 BP 100/53 06/12/17 11:53 Pulse Ox 97 06/12/17 11:53 Intake & Output 06/11/17 06/12/17 06/12/17 18:59 06:59 18:59 Intake Total 900 700 100 Output Total 0 Balance 900 700 100 Weight (lbs) 74.389 kg 74.389 kg 74.389 kg Intake: Intake, IV Amount 600 100 100 Cefepime 2 gm In Dextrose 100 100 100 5% 100 ml @ 100 mls/hr IV Q12HR [facility] Rx#: [id number] Vancomycin HCl 1.25 gm In 500 Sodium Chloride 0.9% 250 ml @ 165 mls/hr IV Q18H [facility] Rx#:[id number] Oral 300 600 Output: Stool 0 Other: # Voids 3 3 # Bowel Movements 1 0 Weight Source Bedscale Bedscale Bedscale Active Medications: Current Medications Acetaminophen/Hydrocodone Bitart ([place] 5mg/325mg) 2 tab PO Q4HR PRN PRN Reason: Pain (Severe) Stop: 08/08/17 04:35 Last Admin: 06/10/17 18:23 Dose: 2 tab Ascorbic Acid (Vitamin C) 500 mg PO DAILY [facility] Stop: 08/08/17 08:59 Last Admin: 06/12/17 08:52 Dose: 500 mg Baclofen (Lioresal) 10 mg PO TID [facility] Stop: 08/08/17 08:59 Last Admin: 06/12/17 08:52 Dose: 10 mg [place] Oil/[place] Balsam/Trypsin (Venelex) 1 appl TP DAILY [facility] Stop: 08/10/17 08:59 Last Admin: 06/12/17 08:53 Dose: 1 appl Diclofenac Sodium (Voltaren) 50 mg PO DAILY [facility] Stop: 08/10/17 08:59 Last Admin: 06/12/17 08:53 Dose: 50 mg Gabapentin (Neurontin) 300 mg PO TID [facility] Stop: 08/08/17 08:59 Last Admin: 06/12/17 08:52 Dose: 300 mg Vancomycin HCl 1.25 gm/ Sodium (Chloride) 250 mls @ 165 mls/hr IV Q18H [facility] Stop: 08/08/17 20:59 Last Admin: 06/12/17 04:09 Dose: 165 mls/hr Cefepime HCl 2 gm/ Dextrose 100 mls @ 100 mls/hr IV Q12HR [facility] Stop: 08/08/17 20:59 Last Infusion: 06/12/17 10:30 Dose: Infused Insulin Aspart (Novolog Insulin Sliding Scale) 0 units SUBQ ACHS [facility] PRN Reason: Protocol Stop: 08/08/17 07:29 Last Admin: 06/12/17 12:31 Dose: 6 units Insulin Detemir (Levemir Insulin) 10 units SUBQ HS [facility] PRN Reason: Protocol Stop: 08/11/17 20:59 Lactobacillus Rhamnosus (Culturelle 15b) 1 each PO DAILY [facility] Stop: 08/10/17 08:59 Last Admin: 06/12/17 08:52 Dose: 1 each Loperamide HCl (Imodium) 4 mg PO Q6H PRN PRN Reason: Diarrhea Stop: 08/08/17 20:48 Last Admin: 06/09/17 21:35 Dose: 4 mg Miscellaneous (Vancomycin Iv Per Pharmacy) 1 [facility] PRN PRN PRN Reason: PROTOCOL Stop: 08/08/17 04:45 Miscellaneous (Probiotic Screen) 1 [facility] PRN PRN PRN Reason: PROTOCOL Stop: 08/10/17 08:59 Multivitamins/Vitamin C (Theragran) 1 tab PO DAILY [facility] Stop: 08/08/17 08:59 Last Admin: 06/12/17 08:52 Dose: 1 tab Ondansetron HCl (Zofran) 4 mg IV Q6H PRN PRN Reason: Nausea / Vomiting Stop: 08/08/17 08:16 Pantoprazole Sodium (Protonix) 40 mg PO BIDAC [facility]ACK Stop: 08/08/17 07:29 Last Admin: 06/12/17 08:55 Dose: 40 mg Potassium Chloride (Klor-Con) 20 meq PO BID [facility] Stop: 08/08/17 08:59 Last Admin: 06/12/17 08:52 Dose: 20 meq General: no acute distress, well developed, well nourished HEENT: atraumatic, normocephalic, PERRLA, EOMI Neck: supple, other (the left sternoclavicular joint swelling is decreasing in size and less tender now.), no thyromegaly, no lymphadenopathy Cardiovascular: S1S2, regular Lungs: clear to auscultation bilaterally, clear to percussion Abdomen: soft, no tender, no distended, no hepatomegaly, no splenomegaly Extremities: other (right thigh swelling soft, consistent with lipoma), no cyanosis, no clubbing, no edema Neurological: awake, alert, oriented Skin: intact Infectious Disease Assmt/Plan - Assessment Assessment: 1. Left lower neck swelling, symptomatic at this time. 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 Partially treated. ESR 90 and CRP 7.9. MRI report was reviewed. abscess and osteomyelitis of the left sternoclavicular joint and two fluid collections 2. Diabetes mellitus type 2. 3. Hypertension. 4. COPD. 5. Dementia. 6. DJD. 7. GERD. 8. Diabetic ulcer of left foot. 9. Left foot TMA. 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 meanwhile, follow up on serologies fo cocci and TB Gold quantiferon. Will need percutaneous drainage of fluid and bone biopsy to reach final diagnosis. may need ortho eval. ? debridement of the left sternoclavicular joint. If percutaneous drainage of the fluid collection or bone biopsy performed, please send the following tests. Fluid: Cell count and differential/ gram stain and culture/susceptibility. AFB smear and cultures. Fungal smear and cultures. Cytology. Nutritional Asmnt/Malnutr-PDOC - Dietary Evaluation Malnutrition Findings (Please click <Entered> for more info): Nutritional Asmnt/Malnutrition Start: 06/09/17 15: 36 Text: Status: Complete Freq: Document 06/09/17 15:36 [facility] (Rec: 06/09/17 15:46 [id number] Nutritional Asmnt/Malnutrition Patient General Information Nutritional Screening High Risk Consult Diagnosis neck mass Pertinent Medical Hx/Surgical Hx DM, HTN, asthma/COPD, dementia , renal transplant, partial left foot amputation Subjective Information Consult received for diabetic. Pt seen sitting up in bed at time of visit, wake and alert. Pt stated not hungry today, maybe better appetite tommorrow. Pt has no preference about food, every food is ok for him. Current Diet Order/ Nutrition Support CCHO-60gm Pertinent Medications vit C, D5-0.9%ns, glucotrol, novolog, cangomycin, theragran , protonix, kcl Pertinent Labs 06/09 glucose 164-178, POC 160- 227 Nutritional Hx/Data Height 1.7 m Height (Calculated Centimeters) 170.2 Current Weight (lbs) 72.575 kg Weight (Calculated Kilograms) 72.6 Weight (Calculated Grams) 87639.8 [place] Body Weight 148 Body Mass Index (BMI) 25.0 Weight Status Overweight GI Symptoms GI Symptoms None Last BM 06/09 Difficult in: None Skin Integrity/Comment: abrasion to left arm, lump to right knee, left upper neck Estimated Nutritional Goals BEE in Kcals: Using Current wt Calories/Kcals/Kg 23-27 Kcals Calculated 5384-4968 Protein: Using Current wt Protein g/k Protein Calculated 73 Fluid: ml 1679-2336ml (1ml/kcal) Nutritional Problem 1. Problem Problem altered nutrition related labs Etiology hx of DM Signs/Symptoms: glucose 164-178, POC 160-227 Malnutrition Alert Protein-Calorie Malnutrition N/A Is there a minimum of two criteria No selected? Query Text:Check all the applicable criteria. A minimum of two criteria are recommended for diagnosis of either severe or non-severe malnutrition. Intervention/Recommendation Comments 1. Continue with CCHO-60gm diet as ordered. Encouraged oral intake and balanced meal. 2. Monitor PO intake, wt, labs and skin integrity 3. F/U as moderate risk in 3-5 days, 06/12-06/14, PO check Expected Outcomes/Goals Expected Outcomes/Goals 1. PO intake to meet at least 75% of nutritional needs. 2. Wt stability, skin to remain intact, labs to approach WNL.
--- NOTE | 2017-06-12 18:09 | General Progress Note ---
Subjective - Review of Systems Service Date: 06/12/17 Subjective: No new sxs undergoing ecchocardiogram Objective - Results Result Diagrams: 06/10/17 05:50 06/10/17 05:50 Recent Labs: Laboratory Last Values WBC 10.8 Th/cmm (4.8-10.8) 06/10/17 05:50 RBC 3.71 Mil/cmm (3.80-5.80) L 06/10/17 05:50 Hgb 10.0 gm/dL (12-16) L 06/10/17 05:50 Hct 29.8 % (41.0-60) L 06/10/17 05:50 MCV 80.2 fl (80-99) 06/10/17 05:50 MCH 27.0 pg (27.0-31.0) 06/10/17 05:50 MCHC Differential 33.7 pg (28.0-36.0) 06/10/17 05:50 RDW 15.3 % (11.5-20.0) 06/10/17 05:50 Plt Count 408 Th/cmm (150-400) H 06/10/17 05:50 MPV 7.5 fl 06/10/17 05:50 Neutrophils % 75.4 % (40.0-80.0) 06/10/17 05:50 Lymphocytes % 15.1 % (20.0-50.0) L 06/10/17 05:50 Monocytes % 6.7 % (2.0-10.0) 06/10/17 05:50 Eosinophils % 2.4 % (0.0-5.0) 06/10/17 05:50 Basophils % 0.4 % (0.0-2.0) 06/10/17 05:50 ESR 90 mm/hr (0-20) H 06/10/17 05:50 PT 11.8 SECONDS (9.5-11.5) H 06/09/17 00:56 INR 1.12 (0.5-1.4) 06/09/17 00:56 PTT (Actin FS) 28.6 SECONDS (26.0-38.0) 06/09/17 00:56 Sodium 137 mEq/L (136-145) 06/10/17 05:50 Potassium 4.7 mEq/L (3.5-5.1) 06/10/17 05:50 Chloride 106 mEq/L (98-107) 06/10/17 05:50 Carbon Dioxide 25.5 mEq/L (21.0-31.0) 06/10/17 05:50 Anion Gap 10.2 (7.0-16.0) 06/10/17 05:50 BUN 18 mg/dL (7-25) 06/10/17 05:50 Creatinine 0.7 mg/dL (0.7-1.3) 06/10/17 05:50 Est GFR ( Amer) TNP 06/10/17 05:50 Est GFR (Non-Af Amer) TNP 06/10/17 05:50 BUN/Creatinine Ratio 25.7 06/10/17 05:50 Glucose 102 mg/dL (70-105) D 06/10/17 05:50 POC Glucose 240 MG/DL (70 - 105) H 06/12/17 17:05 Hemoglobin A1c % 9.0 % (4.0-6.0) H 06/09/17 07:05 Whole Bld Lactic Acid 0.80 mmol/L (0.60-1.99) 06/09/17 Unknown Calcium 9.3 mg/dL (8.6-10.3) 06/10/17 05:50 Total Bilirubin 0.4 mg/dL (0.3-1.0) 06/10/17 05:50 AST 13 U/L (13-39) 06/10/17 05:50 ALT 7 U/L (7-52) 06/10/17 05:50 Alkaline Phosphatase 119 U/L (34-104) H 06/10/17 05:50 Lactate Dehydrogenase 118 U/L (140-271) L 06/10/17 05:50 C-Reactive Protein 7.9 mg/dL (0.0-0.9) H 06/09/17 07:05 Total Protein 6.9 gm/dL (6.0-8.3) 06/10/17 05:50 Albumin 3.0 gm/dL (4.2-5.5) L 06/10/17 05:50 Globulin 3.9 gm/dL 06/10/17 05:50 Albumin/Globulin Ratio 0.8 (1.0-1.8) L 06/10/17 05:50 Triglycerides 85 mg/dL (<150) 06/09/17 07:05 Cholesterol 79 mg/dL (<200) 06/09/17 07:05 LDL Cholesterol Direct 30 mg/dL (75-193) L 06/09/17 07:05 HDL Cholesterol 32 mg/dL (23-92) 06/09/17 07:05 TSH 0.51 uIU/ml (0.34-5.60) 06/09/17 07:05 Urine Source RANDOM 06/09/17 10:02 Urine Color YELLOW 06/09/17 10:02 Urine Clarity HAZY (CLEAR) 06/09/17 10:02 Urine pH 5.5 (4.6 - 8.0) 06/09/17 10:02 Ur Specific [place] >= 1.030 (1.005-1.030) 06/09/17 10:02 Urine Protein TRACE mg/dL (NEGATIVE) 06/09/17 10:02 Urine Glucose (UA) NEGATIVE mg/dL (NEGATIVE) 06/09/17 10:02 Urine Ketones 15 mg/dL (NEGATIVE) H 06/09/17 10:02 Urine Blood NEGATIVE (NEGATIVE) 06/09/17 10:02 Urine Nitrate NEGATIVE (NEGATIVE) 06/09/17 10:02 Urine Bilirubin SMALL (NEGATIVE) H 06/09/17 10:02 Urine Urobilinogen 0.2 E.U./dL (0.2 - 1.0) 06/09/17 10:02 Ur Leukocyte Esterase NEGATIVE (NEGATIVE) 06/09/17 10:02 Urine RBC 2-5 /hpf (0-5) H 06/09/17 10:02 Urine WBC 6-10 /hpf (0-5) 06/09/17 10:02 Ur Epithelial Cells FEW /lpf (FEW) 06/09/17 10:02 Calcium Oxalate Crystal MODERATE /hpf 06/09/17 10:02 Urine Bacteria FEW /hpf (NONE SEEN) 06/09/17 10:02 Urine Yeast FEW /hpf (NONE SEEN) H 06/09/17 10:02 Vancomycin Trough 12.4 ug/mL (5-10) H 06/10/17 14:00 TB (QFT) Gold In Tube NEGATIVE 06/10/17 05:50 TB Test (QFT) Mitogen 6.52 06/10/17 05:50 TB Test (QFT) Antigen 0.04 06/10/17 05:50 TB Test Antigen - Nil 0.00 06/10/17 05:50 TB Test TB - Nil 0.04 06/10/17 05:50 - Physical Exam Vitals and I&O: Vital Signs Temp 98.0 F 06/12/17 15:38 Pulse 90 06/12/17 15:38 Resp 19 06/12/17 16:00 BP 109/50 06/12/17 15:38 Pulse Ox 97 06/12/17 15:38 Intake & Output 06/11/17 06/12/17 06/12/17 18:59 06:59 18:59 Intake Total 900 700 100 Output Total 0 Balance 900 700 100 Weight (lbs) 74.389 kg 74.389 kg 74.389 kg Intake: Intake, IV Amount 600 100 100 Cefepime 2 gm In Dextrose 100 100 100 5% 100 ml @ 100 mls/hr IV Q12HR [facility] Rx#: [id number] Vancomycin HCl 1.25 gm In 500 Sodium Chloride 0.9% 250 ml @ 165 mls/hr IV Q18H [facility] Rx#:[id number] Oral 300 600 Output: Stool 0 Other: # Voids 3 3 # Bowel Movements 1 0 Weight Source Bedscale Bedscale Bedscale Active Medications: Current Medications Acetaminophen/Hydrocodone Bitart ([place] 5mg/325mg) 2 tab PO Q4HR PRN PRN Reason: Pain (Severe) Stop: 08/08/17 04:35 Last Admin: 06/10/17 18:23 Dose: 2 tab Ascorbic Acid (Vitamin C) 500 mg PO DAILY [facility] Stop: 08/08/17 08:59 Last Admin: 06/12/17 08:52 Dose: 500 mg Baclofen (Lioresal) 10 mg PO TID [facility] Stop: 08/08/17 08:59 Last Admin: 06/12/17 15:46 Dose: 10 mg [place] Oil/[place] Balsam/Trypsin (Venelex) 1 appl TP DAILY [facility] Stop: 08/10/17 08:59 Last Admin: 06/12/17 08:53 Dose: 1 appl Diclofenac Sodium (Voltaren) 50 mg PO DAILY [facility] Stop: 08/10/17 08:59 Last Admin: 06/12/17 08:53 Dose: 50 mg Gabapentin (Neurontin) 300 mg PO TID [facility] Stop: 08/08/17 08:59 Last Admin: 06/12/17 15:46 Dose: 300 mg Vancomycin HCl 1.25 gm/ Sodium (Chloride) 250 mls @ 165 mls/hr IV Q18H [facility] Stop: 08/08/17 20:59 Last Admin: 06/12/17 04:09 Dose: 165 mls/hr Cefepime HCl 2 gm/ Dextrose 100 mls @ 100 mls/hr IV Q12HR [facility] Stop: 08/08/17 20:59 Last Infusion: 06/12/17 10:30 Dose: Infused Insulin Aspart (Novolog Insulin Sliding Scale) 0 units SUBQ ACHS [facility] PRN Reason: Protocol Stop: 08/08/17 07:29 Last Admin: 06/12/17 12:31 Dose: 6 units Insulin Detemir (Levemir Insulin) 10 units SUBQ HS [facility] PRN Reason: Protocol Stop: 08/11/17 20:59 Lactobacillus Rhamnosus (Culturelle 15b) 1 each PO DAILY [facility] Stop: 08/10/17 08:59 Last Admin: 06/12/17 08:52 Dose: 1 each Loperamide HCl (Imodium) 4 mg PO Q6H PRN PRN Reason: Diarrhea Stop: 08/08/17 20:48 Last Admin: 06/12/17 16:06 Dose: 4 mg Miscellaneous (Vancomycin Iv Per Pharmacy) 1 [facility] PRN PRN PRN Reason: PROTOCOL Stop: 08/08/17 04:45 Miscellaneous (Probiotic Screen) 1 [facility] PRN PRN PRN Reason: PROTOCOL Stop: 08/10/17 08:59 Multivitamins/Vitamin C (Theragran) 1 tab PO DAILY [facility] Stop: 08/08/17 08:59 Last Admin: 06/12/17 08:52 Dose: 1 tab Ondansetron HCl (Zofran) 4 mg IV Q6H PRN PRN Reason: Nausea / Vomiting Stop: 08/08/17 08:16 Pantoprazole Sodium (Protonix) 40 mg PO BIDAC [facility] Stop: 08/08/17 07:29 Last Admin: 06/12/17 15:46 Dose: 40 mg Potassium Chloride (Klor-Con) 20 meq PO BID [facility] Stop: 08/08/17 08:59 Last Admin: 06/12/17 16:00 Dose: 20 meq General: Alert, Oriented x3, No acute distress HEENT: Atraumatic, PERRLA, EOMI Neck: Supple Cardiovascular: Regular rate, Normal S1, Normal S2 Lungs: Clear to auscultation Abdomen: Bowel sounds, Soft Neurological: Normal gait, Normal speech Assessment/Plan - Assessment Assessment: * left sternoclavicular joint osteo * Possible lymphoma CT abd/p: no lymphadenopathy MRI neck noted. may need bone marrow biopsy. follow anemia and[place] Nutritional Asmnt/Malnutr-PDOC - Dietary Evaluation Malnutrition Findings (Please click <Entered> for more info): Nutritional Asmnt/Malnutrition Start: 06/09/17 15: 36 Text: Status: Complete Freq: Document 06/09/17 15:36 [facility] (Rec: 06/09/17 15:46 [id number] Nutritional Asmnt/Malnutrition Patient General Information Nutritional Screening High Risk Consult Diagnosis neck mass Pertinent Medical Hx/Surgical Hx DM, HTN, asthma/COPD, dementia , renal transplant, partial left foot amputation Subjective Information Consult received for diabetic. Pt seen sitting up in bed at time of visit, wake and alert. Pt stated not hungry today, maybe better appetite tommorrow. Pt has no preference about food, every food is ok for him. Current Diet Order/ Nutrition Support CCHO-60gm Pertinent Medications vit C, D5-0.9%ns, glucotrol, novolog, cangomycin, theragran , protonix, kcl Pertinent Labs 06/09 glucose 164-178, POC 160- 227 Nutritional Hx/Data Height 1.7 m Height (Calculated Centimeters) 170.2 Current Weight (lbs) 72.575 kg Weight (Calculated Kilograms) 72.6 Weight (Calculated Grams) 73747.8 [place] Body Weight 148 Body Mass Index (BMI) 25.0 Weight Status Overweight GI Symptoms GI Symptoms None Last BM 06/09 Difficult in: None Skin Integrity/Comment: abrasion to left arm, lump to right knee, left upper neck Estimated Nutritional Goals BEE in Kcals: Using Current wt Calories/Kcals/Kg 23-27 Kcals Calculated 0706-9914 Protein: Using Current wt Protein g/k Protein Calculated 73 Fluid: ml 1679-2336ml (1ml/kcal) Nutritional Problem 1. Problem Problem altered nutrition related labs Etiology hx of DM Signs/Symptoms: glucose 164-178, POC 160-227 Malnutrition Alert Protein-Calorie Malnutrition N/A Is there a minimum of two criteria No selected? Query Text:Check all the applicable criteria. A minimum of two criteria are recommended for diagnosis of either severe or non-severe malnutrition. Intervention/Recommendation Comments 1. Continue with CCHO-60gm diet as ordered. Encouraged oral intake and balanced meal. 2. Monitor PO intake, wt, labs and skin integrity 3. F/U as moderate risk in 3-5 days, 06/12-06/14, PO check Expected Outcomes/Goals Expected Outcomes/Goals 1. PO intake to meet at least 75% of nutritional needs. 2. Wt stability, skin to remain intact, labs to approach WNL.
[2017-06-12] MEDS ORDERED: Insulin Detemir 100 units/mL 10mL Vial SUBQ SCH (21:00)
--- NOTE | 2017-06-13 05:17 | General Progress Note ---
Subjective - Review of Systems Service Date: 06/13/17 Subjective: Patient was seen and examined. No acute distress. afebrile. ECHO. Patient to have CT guided aspiration of left sternoclavicular aspiration on Thursday. Objective - Results Result Diagrams: 06/10/17 05:50 06/10/17 05:50 Recent Labs: Laboratory Last Values WBC 10.8 Th/cmm (4.8-10.8) 06/10/17 05:50 RBC 3.71 Mil/cmm (3.80-5.80) L 06/10/17 05:50 Hgb 10.0 gm/dL (12-16) L 06/10/17 05:50 Hct 29.8 % (41.0-60) L 06/10/17 05:50 MCV 80.2 fl (80-99) 06/10/17 05:50 MCH 27.0 pg (27.0-31.0) 06/10/17 05:50 MCHC Differential 33.7 pg (28.0-36.0) 06/10/17 05:50 RDW 15.3 % (11.5-20.0) 06/10/17 05:50 Plt Count 408 Th/cmm (150-400) H 06/10/17 05:50 MPV 7.5 fl 06/10/17 05:50 Neutrophils % 75.4 % (40.0-80.0) 06/10/17 05:50 Lymphocytes % 15.1 % (20.0-50.0) L 06/10/17 05:50 Monocytes % 6.7 % (2.0-10.0) 06/10/17 05:50 Eosinophils % 2.4 % (0.0-5.0) 06/10/17 05:50 Basophils % 0.4 % (0.0-2.0) 06/10/17 05:50 ESR 90 mm/hr (0-20) H 06/10/17 05:50 PT 11.8 SECONDS (9.5-11.5) H 06/09/17 00:56 INR 1.12 (0.5-1.4) 06/09/17 00:56 PTT (Actin FS) 28.6 SECONDS (26.0-38.0) 06/09/17 00:56 Sodium 137 mEq/L (136-145) 06/10/17 05:50 Potassium 4.7 mEq/L (3.5-5.1) 06/10/17 05:50 Chloride 106 mEq/L (98-107) 06/10/17 05:50 Carbon Dioxide 25.5 mEq/L (21.0-31.0) 06/10/17 05:50 Anion Gap 10.2 (7.0-16.0) 06/10/17 05:50 BUN 18 mg/dL (7-25) 06/10/17 05:50 Creatinine 0.7 mg/dL (0.7-1.3) 06/10/17 05:50 Est GFR ( Amer) TNP 06/10/17 05:50 Est GFR (Non-Af Amer) TNP 06/10/17 05:50 BUN/Creatinine Ratio 25.7 06/10/17 05:50 Glucose 102 mg/dL (70-105) D 06/10/17 05:50 POC Glucose 196 MG/DL (70 - 105) H 06/12/17 20:11 Hemoglobin A1c % 9.0 % (4.0-6.0) H 06/09/17 07:05 Whole Bld Lactic Acid 0.80 mmol/L (0.60-1.99) 06/09/17 Unknown Calcium 9.3 mg/dL (8.6-10.3) 06/10/17 05:50 Total Bilirubin 0.4 mg/dL (0.3-1.0) 06/10/17 05:50 AST 13 U/L (13-39) 06/10/17 05:50 ALT 7 U/L (7-52) 06/10/17 05:50 Alkaline Phosphatase 119 U/L (34-104) H 06/10/17 05:50 Lactate Dehydrogenase 118 U/L (140-271) L 06/10/17 05:50 C-Reactive Protein 7.9 mg/dL (0.0-0.9) H 06/09/17 07:05 Total Protein 6.9 gm/dL (6.0-8.3) 06/10/17 05:50 Albumin 3.0 gm/dL (4.2-5.5) L 06/10/17 05:50 Globulin 3.9 gm/dL 06/10/17 05:50 Albumin/Globulin Ratio 0.8 (1.0-1.8) L 06/10/17 05:50 Triglycerides 85 mg/dL (<150) 06/09/17 07:05 Cholesterol 79 mg/dL (<200) 06/09/17 07:05 LDL Cholesterol Direct 30 mg/dL (75-193) L 06/09/17 07:05 HDL Cholesterol 32 mg/dL (23-92) 06/09/17 07:05 TSH 0.51 uIU/ml (0.34-5.60) 06/09/17 07:05 Urine Source RANDOM 06/09/17 10:02 Urine Color YELLOW 06/09/17 10:02 Urine Clarity HAZY (CLEAR) 06/09/17 10:02 Urine pH 5.5 (4.6 - 8.0) 06/09/17 10:02 Ur Specific [place] >= 1.030 (1.005-1.030) 06/09/17 10:02 Urine Protein TRACE mg/dL (NEGATIVE) 06/09/17 10:02 Urine Glucose (UA) NEGATIVE mg/dL (NEGATIVE) 06/09/17 10:02 Urine Ketones 15 mg/dL (NEGATIVE) H 06/09/17 10:02 Urine Blood NEGATIVE (NEGATIVE) 06/09/17 10:02 Urine Nitrate NEGATIVE (NEGATIVE) 06/09/17 10:02 Urine Bilirubin SMALL (NEGATIVE) H 06/09/17 10:02 Urine Urobilinogen 0.2 E.U./dL (0.2 - 1.0) 06/09/17 10:02 Ur Leukocyte Esterase NEGATIVE (NEGATIVE) 06/09/17 10:02 Urine RBC 2-5 /hpf (0-5) H 06/09/17 10:02 Urine WBC 6-10 /hpf (0-5) 06/09/17 10:02 Ur Epithelial Cells FEW /lpf (FEW) 06/09/17 10:02 Calcium Oxalate Crystal MODERATE /hpf 06/09/17 10:02 Urine Bacteria FEW /hpf (NONE SEEN) 06/09/17 10:02 Urine Yeast FEW /hpf (NONE SEEN) H 06/09/17 10:02 Vancomycin Trough 15.5 ug/mL (5-10) H 06/12/17 20:14 TB (QFT) Gold In Tube NEGATIVE 06/10/17 05:50 TB Test (QFT) Mitogen 6.52 06/10/17 05:50 TB Test (QFT) Antigen 0.04 06/10/17 05:50 TB Test Antigen - Nil 0.00 06/10/17 05:50 TB Test TB - Nil 0.04 06/10/17 05:50 - Physical Exam Vitals and I&O: Vital Signs Temp 97.5 F 06/13/17 04:00 Pulse 81 06/13/17 04:00 Resp 18 06/13/17 04:00 BP 126/67 06/13/17 04:00 Pulse Ox 98 06/13/17 04:00 Intake & Output 06/12/17 06/12/17 06/13/17 06:59 18:59 06:59 Intake Total 950 100 700 Output Total 0 Balance 950 100 700 Weight (lbs) 74.389 kg 74.389 kg 76.975 kg Intake: Intake, IV Amount 350 100 Cefepime 2 gm In Dextrose 100 100 5% 100 ml @ 100 mls/hr IV Q12HR [facility] Rx#: [id number] Vancomycin HCl 1.25 gm In 250 Sodium Chloride 0.9% 250 ml @ 165 mls/hr IV Q18H [facility] Rx#:[id number] Oral 600 700 Output: Stool 0 Other: # Voids 3 4 # Bowel Movements 0 4 Weight Source Bedscale Bedscale Bedscale Active Medications: Current Medications Acetaminophen/Hydrocodone Bitart (Phenix 5mg/325mg) 2 tab PO Q4HR PRN PRN Reason: Pain (Severe) Stop: 08/08/17 04:35 Last Admin: 06/10/17 18:23 Dose: 2 tab Ascorbic Acid (Vitamin C) 500 mg PO DAILY [facility] Stop: 08/08/17 08:59 Last Admin: 06/12/17 08:52 Dose: 500 mg Baclofen (Lioresal) 10 mg PO TID JACK Stop: 08/08/17 08:59 Last Admin: 06/12/17 20:20 Dose: 10 mg [place] Oil/[place] Balsam/Trypsin (Venelex) 1 appl TP DAILY JACK Stop: 08/10/17 08:59 Last Admin: 06/12/17 08:53 Dose: 1 appl Diclofenac Sodium (Voltaren) 50 mg PO DAILY [facility] Stop: 08/10/17 08:59 Last Admin: 06/12/17 08:53 Dose: 50 mg Gabapentin (Neurontin) 300 mg PO TID JACK Stop: 08/08/17 08:59 Last Admin: 06/12/17 20:20 Dose: 300 mg Vancomycin HCl 1.25 gm/ Sodium (Chloride) 250 mls @ 165 mls/hr IV Q18H JACK Stop: 08/08/17 20:59 Last Admin: 06/12/17 21:57 Dose: 165 mls/hr Cefepime HCl 2 gm/ Dextrose 100 mls @ 100 mls/hr IV Q12HR JACK Stop: 08/08/17 20:59 Last Admin: 06/12/17 20:20 Dose: 100 mls/hr Insulin Aspart (Novolog Insulin Sliding Scale) 0 units SUBQ ACHS JACK PRN Reason: Protocol Stop: 08/08/17 07:29 Last Admin: 06/12/17 20:28 Dose: 2 units Insulin Detemir (Levemir Insulin) 10 units SUBQ HS JACK PRN Reason: Protocol Stop: 08/11/17 20:59 Last Admin: 06/12/17 21:56 Dose: Not Given Lactobacillus Rhamnosus (Culturelle 15b) 1 each PO DAILY JACK Stop: 08/10/17 08:59 Last Admin: 06/12/17 08:52 Dose: 1 each Loperamide HCl (Imodium) 4 mg PO Q6H PRN PRN Reason: Diarrhea Stop: 08/08/17 20:48 Last Admin: 06/12/17 16:06 Dose: 4 mg Miscellaneous (Vancomycin Iv Per Pharmacy) 1 ea PRN PRN PRN Reason: PROTOCOL Stop: 08/08/17 04:45 Miscellaneous (Probiotic Screen) 1 ea PRN PRN PRN Reason: PROTOCOL Stop: 08/10/17 08:59 Multivitamins/Vitamin C (Theragran) 1 tab PO DAILY JACK Stop: 08/08/17 08:59 Last Admin: 06/12/17 08:52 Dose: 1 tab Ondansetron HCl (Zofran) 4 mg IV Q6H PRN PRN Reason: Nausea / Vomiting Stop: 08/08/17 08:16 Pantoprazole Sodium (Protonix) 40 mg PO BIDAC JACK Stop: 08/08/17 07:29 Last Admin: 06/12/17 15:46 Dose: 40 mg Potassium Chloride (Klor-Con) 20 meq PO BID JACK Stop: 08/08/17 08:59 Last Admin: 06/12/17 16:00 Dose: 20 meq General: Alert, Oriented x3, No acute distress HEENT: Atraumatic, PERRLA, EOMI Neck: Supple Cardiovascular: Regular rate, Normal S1, Normal S2 Lungs: Clear to auscultation Abdomen: Bowel sounds, Soft Neurological: Normal gait, Normal speech Assessment/Plan - Assessment Assessment: Left lower neck swelling, symptomatic at this time. 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 Partially treated. ESR 90 and CRP 7.9. abscess and osteomyelitisof the left sternoclavicular joint and two fluid collections. DM type 2 ... increase Levemir to 12u HS COPD Dementia DJD GERD Diabetic left foot ulcer HTN leukocytosis right knee mass Left foot TMA - Plan Plan: MRA Chest CT Abd/pelvis Bone Scan ID consult Surgical consult Hem/Onc consult Ortho consult repeat CBC,CMP Vancomycin per pharmacy IV fluids continue home meds. PT eval for LTAC evaluation. Nutritional Asmnt/Malnutr-PDOC - Dietary Evaluation Malnutrition Findings (Please click <Entered> for more info): Nutritional Asmnt/Malnutrition Start: 06/09/17 15: 36 Text: Status: Complete Freq: Document 06/09/17 15:36 LCHENG (Rec: 06/09/17 15:46 LCHENG [email or web address]) Nutritional Asmnt/Malnutrition Patient General Information Nutritional Screening High Risk Consult Diagnosis neck mass Pertinent Medical Hx/Surgical Hx DM, HTN, asthma/COPD, dementia , renal transplant, partial left foot amputation Subjective Information Consult received for diabetic. Pt seen sitting up in bed at time of visit, wake and alert. Pt stated not hungry today, maybe better appetite tommorrow. Pt has no preference about food, every food is ok for him. Current Diet Order/ [facility] Pertinent Medications vit C, D5-0.9%ns, glucotrol, novolog, cangomycin, theragran , protonix, kcl Pertinent Labs /24 glucose 164-178, POC 160- 227 Nutritional Hx/Data Height 1.7 m Height (Calculated Centimeters) 170.2 Current Weight (lbs) 72.575 kg Weight (Calculated Kilograms) 72.6 Weight (Calculated Grams) 25696.8 [place] Body Weight 148 Body Mass Index (BMI) 25.0 Weight Status Overweight GI Symptoms GI Symptoms None Last BM 06/09 Difficult in: None Skin Integrity/Comment: abrasion to left arm, lump to right knee, left upper neck Estimated Nutritional Goals BEE in Kcals: Using Current wt Calories/Kcals/Kg 23-27 Kcals Calculated 3257-1714 Protein: Using Current wt Protein g/k Protein Calculated 73 Fluid: ml 1679-2336ml (1ml/kcal) Nutritional Problem 1. Problem Problem altered nutrition related labs Etiology hx of DM Signs/Symptoms: glucose 164-178, POC 160-227 Malnutrition Alert Protein-Calorie Malnutrition N/A Is there a minimum of two criteria No selected? Query Text:Check all the applicable criteria. A minimum of two criteria are recommended for diagnosis of either severe or non-severe malnutrition. Intervention/Recommendation Comments 1. Continue with CCHO-60gm diet as ordered. Encouraged oral intake and balanced meal. 2. Monitor PO intake, wt, labs and skin integrity 3. F/U as moderate risk in 3-5 days, 06/12-06/14, PO check Expected Outcomes/Goals Expected Outcomes/Goals 1. PO intake to meet at least 75% of nutritional needs. 2. Wt stability, skin to remain intact, labs to approach WNL.
[2017-06-13] MEDS: Hydrocodone/APAP 5mg/325mg Tab PO PRN ×2 (05:24→16:07)
[2017-06-13 05:35] LABS: % BASOPHILS 0.4 % (0.0-2.0); % EOSINOPHILS 3.4 % (0.0-5.0); % MONOCYTES 6.8 % (2.0-10.0); % NEUTROPHILS 70.4 % (40.0-80.0); EOSINOPHILE ABSOLUTE 0.3 Th/cmm (0.1-0.4); HEMATOCRIT 28.6 % (41.0-60); HEMOGLOBIN 9.6 gm/dL (12-16); LYMPHOCYTE ABSOLUTE 1.9 Th/cmm (1.5-3.0); MEAN CELL VOLUME 80.3 fl (80-99); MEAN CORPUSCULAR HEMOGLOBIN 26.9 pg (27.0-31.0); MEAN CORPUSCULAR HGB CONC 33.5 pg (28.0-36.0); MEAN PLATELET VOLUME 7.4 fl; MONOCYTE ABSOLUTE 0.7 Th/cmm (0.3-1.0); PLATELET COUNT 317 Th/cmm (150-400); RED BLOOD COUNT 3.56 Mil/cmm (3.80-5.80); RED CELL DISTRIBUTION WIDTH 15.2 % (11.5-20.0); WHITE BLOOD COUNT 9.9 Th/cmm (4.8-10.8)
[2017-06-13 06:00] LABS: ANION GAP 9.6 (7.0-16.0); BUN - UREA NITROGEN 13 mg/dL (7-25); CALCIUM SERUM 8.9 mg/dL (8.6-10.3); CARBON DIOXIDE 22.7 mEq/L (21.0-31.0); CHLORIDE 108 mEq/L (98-107); CREATININE - SERUM 0.7 mg/dL (0.7-1.3); GLUCOSE 164 mg/dL (70-105); POTASSIUM SERUM 4.3 mEq/L (3.5-5.1); SODIUM SERUM 136 mEq/L (136-145)
--- NOTE | 2017-06-13 07:25 | General Progress Note ---
Subjective - Review of Systems Service Date: 06/13/17 Events since last encounter: CT aspiration biopsy ordered Objective - Results Result Diagrams: 06/13/17 05:25 06/13/17 05:25 Recent Labs: Laboratory Last Values WBC 9.9 Th/cmm (4.8-10.8) 06/13/17 05:25 RBC 3.56 Mil/cmm (3.80-5.80) L 06/13/17 05:25 Hgb 9.6 gm/dL (12-16) L 06/13/17 05:25 Hct 28.6 % (41.0-60) L 06/13/17 05:25 MCV 80.3 fl (80-99) 06/13/17 05:25 MCH 26.9 pg (27.0-31.0) L 06/13/17 05:25 MCHC Differential 33.5 pg (28.0-36.0) 06/13/17 05:25 RDW 15.2 % (11.5-20.0) 06/13/17 05:25 Plt Count 317 Th/cmm (150-400) 06/13/17 05:25 MPV 7.4 fl 06/13/17 05:25 Neutrophils % 70.4 % (40.0-80.0) 06/13/17 05:25 Lymphocytes % 19.0 % (20.0-50.0) L 06/13/17 05:25 Monocytes % 6.8 % (2.0-10.0) 06/13/17 05:25 Eosinophils % 3.4 % (0.0-5.0) 06/13/17 05:25 Basophils % 0.4 % (0.0-2.0) 06/13/17 05:25 ESR 90 mm/hr (0-20) H 06/10/17 05:50 PT 11.8 SECONDS (9.5-11.5) H 06/09/17 00:56 INR 1.12 (0.5-1.4) 06/09/17 00:56 PTT (Actin FS) 28.6 SECONDS (26.0-38.0) 06/09/17 00:56 Sodium 136 mEq/L (136-145) 06/13/17 05:25 Potassium 4.3 mEq/L (3.5-5.1) 06/13/17 05:25 Chloride 108 mEq/L (98-107) H 06/13/17 05:25 Carbon Dioxide 22.7 mEq/L (21.0-31.0) 06/13/17 05:25 Anion Gap 9.6 (7.0-16.0) 06/13/17 05:25 BUN 13 mg/dL (7-25) 06/13/17 05:25 Creatinine 0.7 mg/dL (0.7-1.3) 06/13/17 05:25 Est GFR ( Amer) TNP 06/13/17 05:25 Est GFR (Non-Af Amer) TNP 06/13/17 05:25 BUN/Creatinine Ratio 18.6 06/13/17 05:25 Glucose 164 mg/dL (70-105) H 06/13/17 05:25 POC Glucose 169 MG/DL (70 - 105) H 06/13/17 06:20 Hemoglobin A1c % 9.0 % (4.0-6.0) H 06/09/17 07:05 Whole Bld Lactic Acid 0.80 mmol/L (0.60-1.99) 06/09/17 Unknown Calcium 8.9 mg/dL (8.6-10.3) 06/13/17 05:25 Total Bilirubin 0.4 mg/dL (0.3-1.0) 06/10/17 05:50 AST 13 U/L (13-39) 06/10/17 05:50 ALT 7 U/L (7-52) 06/10/17 05:50 Alkaline Phosphatase 119 U/L (34-104) H 06/10/17 05:50 Lactate Dehydrogenase 118 U/L (140-271) L 06/10/17 05:50 C-Reactive Protein 7.9 mg/dL (0.0-0.9) H 06/09/17 07:05 Total Protein 6.9 gm/dL (6.0-8.3) 06/10/17 05:50 Albumin 3.0 gm/dL (4.2-5.5) L 06/10/17 05:50 Globulin 3.9 gm/dL 06/10/17 05:50 Albumin/Globulin Ratio 0.8 (1.0-1.8) L 06/10/17 05:50 Triglycerides 85 mg/dL (<150) 06/09/17 07:05 Cholesterol 79 mg/dL (<200) 06/09/17 07:05 LDL Cholesterol Direct 30 mg/dL (75-193) L 06/09/17 07:05 HDL Cholesterol 32 mg/dL (23-92) 06/09/17 07:05 TSH 0.51 uIU/ml (0.34-5.60) 06/09/17 07:05 Urine Source RANDOM 06/09/17 10:02 Urine Color YELLOW 06/09/17 10:02 Urine Clarity HAZY (CLEAR) 06/09/17 10:02 Urine pH 5.5 (4.6 - 8.0) 06/09/17 10:02 Ur Specific [place] >= 1.030 (1.005-1.030) 06/09/17 10:02 Urine Protein TRACE mg/dL (NEGATIVE) 06/09/17 10:02 Urine Glucose (UA) NEGATIVE mg/dL (NEGATIVE) 06/09/17 10:02 Urine Ketones 15 mg/dL (NEGATIVE) H 06/09/17 10:02 Urine Blood NEGATIVE (NEGATIVE) 06/09/17 10:02 Urine Nitrate NEGATIVE (NEGATIVE) 06/09/17 10:02 Urine Bilirubin SMALL (NEGATIVE) H 06/09/17 10:02 Urine Urobilinogen 0.2 E.U./dL (0.2 - 1.0) 06/09/17 10:02 Ur Leukocyte Esterase NEGATIVE (NEGATIVE) 06/09/17 10:02 Urine RBC 2-5 /hpf (0-5) H 06/09/17 10:02 Urine WBC 6-10 /hpf (0-5) 06/09/17 10:02 Ur Epithelial Cells FEW /lpf (FEW) 06/09/17 10:02 Calcium Oxalate Crystal MODERATE /hpf 06/09/17 10:02 Urine Bacteria FEW /hpf (NONE SEEN) 06/09/17 10:02 Urine Yeast FEW /hpf (NONE SEEN) H 06/09/17 10:02 Vancomycin Trough 15.5 ug/mL (5-10) H 06/12/17 20:14 TB (QFT) Gold In Tube NEGATIVE 06/10/17 05:50 TB Test (QFT) Mitogen 6.52 06/10/17 05:50 TB Test (QFT) Antigen 0.04 06/10/17 05:50 TB Test Antigen - Nil 0.00 06/10/17 05:50 TB Test TB - Nil 0.04 06/10/17 05:50 - Physical Exam Vitals and I&O: Vital Signs Temp 97.5 F 06/13/17 04:00 Pulse 81 06/13/17 04:00 Resp 18 06/13/17 04:00 BP 126/67 06/13/17 04:00 Pulse Ox 98 06/13/17 04:00 Intake & Output 06/12/17 06/13/17 06/13/17 18:59 06:59 18:59 Intake Total 100 1300 Balance 100 1300 Weight (lbs) 74.389 kg 76.975 kg Intake: Intake, IV Amount 100 Cefepime 2 gm In Dextrose 100 5% 100 ml @ 100 mls/hr IV Q12HR [facility] Rx#: [id number] Oral 1300 Other: # Voids 2 # Bowel Movements 1 Weight Source Bedscale Bedscale Active Medications: Current Medications Acetaminophen/Hydrocodone Bitart ([place] 5mg/325mg) 2 tab PO Q4HR PRN PRN Reason: Pain (Severe) Stop: 08/08/17 04:35 Last Admin: 06/13/17 05:24 Dose: 2 tab Ascorbic Acid (Vitamin C) 500 mg PO DAILY [facility] Stop: 08/08/17 08:59 Last Admin: 06/12/17 08:52 Dose: 500 mg Baclofen (Lioresal) 10 mg PO TID [facility] Stop: 08/08/17 08:59 Last Admin: 06/12/17 20:20 Dose: 10 mg [place] Oil/[place] Balsam/Trypsin (Venelex) 1 appl TP DAILY [facility] Stop: 08/10/17 08:59 Last Admin: 06/12/17 08:53 Dose: 1 appl Diclofenac Sodium (Voltaren) 50 mg PO DAILY [facility] Stop: 08/10/17 08:59 Last Admin: 06/12/17 08:53 Dose: 50 mg Gabapentin (Neurontin) 300 mg PO TID [facility] Stop: 08/08/17 08:59 Last Admin: 06/12/17 20:20 Dose: 300 mg Vancomycin HCl 1.25 gm/ Sodium (Chloride) 250 mls @ 165 mls/hr IV Q18H [facility] Stop: 08/08/17 20:59 Last Admin: 06/12/17 21:57 Dose: 165 mls/hr Cefepime HCl 2 gm/ Dextrose 100 mls @ 100 mls/hr IV Q12HR [facility] Stop: 08/08/17 20:59 Last Admin: 06/12/17 20:20 Dose: 100 mls/hr Insulin Aspart (Novolog Insulin Sliding Scale) 0 units SUBQ ACHS JACK PRN Reason: Protocol Stop: 08/08/17 07:29 Last Admin: 06/12/17 20:28 Dose: 2 units Insulin Detemir (Levemir Insulin) 12 units SUBQ HS JACK PRN Reason: Protocol Stop: 08/12/17 20:59 Lactobacillus Rhamnosus (Culturelle 15b) 1 each PO DAILY JACK Stop: 08/10/17 08:59 Last Admin: 06/12/17 08:52 Dose: 1 each Loperamide HCl (Imodium) 4 mg PO Q6H PRN PRN Reason: Diarrhea Stop: 08/08/17 20:48 Last Admin: 06/12/17 16:06 Dose: 4 mg Miscellaneous (Vancomycin Iv Per Pharmacy) 1 ea PRN PRN PRN Reason: PROTOCOL Stop: 08/08/17 04:45 Miscellaneous (Probiotic Screen) 1 [facility] PRN PRN PRN Reason: PROTOCOL Stop: 08/10/17 08:59 Multivitamins/Vitamin C (Theragran) 1 tab PO DAILY JACK Stop: 08/08/17 08:59 Last Admin: 06/12/17 08:52 Dose: 1 tab Ondansetron HCl (Zofran) 4 mg IV Q6H PRN PRN Reason: Nausea / Vomiting Stop: 08/08/17 08:16 Pantoprazole Sodium (Protonix) 40 mg PO BIDAC JACK Stop: 08/08/17 07:29 Last Admin: 06/12/17 15:46 Dose: 40 mg Potassium Chloride (Klor-Con) 20 meq PO BID JACK Stop: 08/08/17 08:59 Last Admin: 06/12/17 16:00 Dose: 20 meq General: Alert, Oriented x3, No acute distress HEENT: Atraumatic, PERRLA, EOMI Neck: Supple Cardiovascular: Regular rate, Normal S1, Normal S2 Lungs: Clear to auscultation Abdomen: Bowel sounds, Soft Neurological: Normal gait, Normal speech Nutritional Asmnt/Malnutr-PDOC - Dietary Evaluation Malnutrition Findings (Please click <Entered> for more info): Nutritional Asmnt/Malnutrition Start: 06/09/17 15: 36 Text: Status: Complete Freq: Document 06/09/17 15:36 KARLA (Rec: 06/09/17 15:46 [email or web address]) Nutritional Asmnt/Malnutrition Patient General Information Nutritional Screening High Risk Consult Diagnosis neck mass Pertinent Medical Hx/Surgical Hx DM, HTN, asthma/COPD, dementia , renal transplant, partial left foot amputation Subjective Information Consult received for diabetic. Pt seen sitting up in bed at time of visit, wake and alert. Pt stated not hungry today, maybe better appetite tommorrow. Pt has no preference about food, every food is ok for him. Current Diet Order/ Nutrition Support CCHO-60gm Pertinent Medications vit C, D5-0.9%ns, glucotrol, novolog, cangomycin, theragran , protonix, kcl Pertinent Labs 06/09 glucose 164-178, POC 160- 227 Nutritional Hx/Data Height 1.7 m Height (Calculated Centimeters) 170.2 Current Weight (lbs) 72.575 kg Weight (Calculated Kilograms) 72.6 Weight (Calculated Grams) 93494.8 [place] Body Weight 148 Body Mass Index (BMI) 25.0 Weight Status Overweight GI Symptoms GI Symptoms None Last BM 06/09 Difficult in: None Skin Integrity/Comment: abrasion to left arm, lump to right knee, left upper neck Estimated Nutritional Goals BEE in Kcals: Using Current wt Calories/Kcals/Kg 23-27 Kcals Calculated 3390-4454 Protein: Using Current wt Protein g/k Protein Calculated 73 Fluid: ml 1679-2336ml (1ml/kcal) Nutritional Problem 1. Problem Problem altered nutrition related labs Etiology hx of DM Signs/Symptoms: glucose 164-178, POC 160-227 Malnutrition Alert Protein-Calorie Malnutrition N/A Is there a minimum of two criteria No selected? Query Text:Check all the applicable criteria. A minimum of two criteria are recommended for diagnosis of either severe or non-severe malnutrition. Intervention/Recommendation Comments 1. Continue with CCHO-60gm diet as ordered. Encouraged oral intake and balanced meal. 2. Monitor PO intake, wt, labs and skin integrity 3. F/U as moderate risk in 3-5 days, 06/12-06/14, PO check Expected Outcomes/Goals Expected Outcomes/Goals 1. PO intake to meet at least 75% of nutritional needs. 2. Wt stability, skin to remain intact, labs to approach WNL.
[2017-06-13] MEDS: Venelex 60gm Tube TP SCH (08:29)
[2017-06-13] MEDS: INSULIN ASPART SLIDING SCALE 100 UNITS/ML UNIT SUBQ SCH ×4 (08:30→20:22)
[2017-06-13] MEDS: Potassium Chloride 20 mEq ER Tab PO SCH ×2 (08:34→16:07)
[2017-06-13] MEDS: Pantoprazole 40 mg EC Tab PO SCH ×2 (08:34→16:07)
[2017-06-13] MEDS: Multivitamin Tab PO SCH (08:35)
[2017-06-13] MEDS: Lactobacillus Rhamnosus GG 15 Billion CFU CAP.SPRINK PO SCH (08:38)
--- NOTE | 2017-06-13 17:31 | Infectious Disease Prog Note ---
Infectious Disease Subjective - Review of Systems Service Date: 06/13/17 Subjective: There is no new change, no fever. Infectious Disease Objective - Results Result Diagrams: 06/13/17 05:25 06/13/17 05:25 Recent Labs: Laboratory Last Values WBC 9.9 Th/cmm (4.8-10.8) 06/13/17 05:25 RBC 3.56 Mil/cmm (3.80-5.80) L 06/13/17 05:25 Hgb 9.6 gm/dL (12-16) L 06/13/17 05:25 Hct 28.6 % (41.0-60) L 06/13/17 05:25 MCV 80.3 fl (80-99) 06/13/17 05:25 MCH 26.9 pg (27.0-31.0) L 06/13/17 05:25 MCHC Differential 33.5 pg (28.0-36.0) 06/13/17 05:25 RDW 15.2 % (11.5-20.0) 06/13/17 05:25 Plt Count 317 Th/cmm (150-400) 06/13/17 05:25 MPV 7.4 fl 06/13/17 05:25 Neutrophils % 70.4 % (40.0-80.0) 06/13/17 05:25 Lymphocytes % 19.0 % (20.0-50.0) L 06/13/17 05:25 Monocytes % 6.8 % (2.0-10.0) 06/13/17 05:25 Eosinophils % 3.4 % (0.0-5.0) 06/13/17 05:25 Basophils % 0.4 % (0.0-2.0) 06/13/17 05:25 ESR 90 mm/hr (0-20) H 06/10/17 05:50 PT 11.8 SECONDS (9.5-11.5) H 06/09/17 00:56 INR 1.12 (0.5-1.4) 06/09/17 00:56 PTT (Actin FS) 28.6 SECONDS (26.0-38.0) 06/09/17 00:56 Sodium 136 mEq/L (136-145) 06/13/17 05:25 Potassium 4.3 mEq/L (3.5-5.1) 06/13/17 05:25 Chloride 108 mEq/L (98-107) H 06/13/17 05:25 Carbon Dioxide 22.7 mEq/L (21.0-31.0) 06/13/17 05:25 Anion Gap 9.6 (7.0-16.0) 06/13/17 05:25 BUN 13 mg/dL (7-25) 06/13/17 05:25 Creatinine 0.7 mg/dL (0.7-1.3) 06/13/17 05:25 Est GFR ( Amer) TNP 06/13/17 05:25 Est GFR (Non-Af Amer) TNP 06/13/17 05:25 BUN/Creatinine Ratio 18.6 06/13/17 05:25 Glucose 164 mg/dL (70-105) H 06/13/17 05:25 POC Glucose 223 MG/DL (70 - 105) H 06/13/17 15:48 Hemoglobin A1c % 9.0 % (4.0-6.0) H 06/09/17 07:05 Whole Bld Lactic Acid 0.80 mmol/L (0.60-1.99) 06/09/17 Unknown Calcium 8.9 mg/dL (8.6-10.3) 06/13/17 05:25 Iron SEE REF.LAB REPORT 06/12/17 05:45 TIBC SEE REF. LAB REPORT 06/12/17 05:45 Iron Saturation SEE REF.LAB REPORT 06/12/17 05:45 Unsaturated IBC SEE REF.LAB REPORT 06/12/17 05:45 Ferritin SEE REF.LAB REPORT 06/12/17 05:45 Total Bilirubin 0.4 mg/dL (0.3-1.0) 06/10/17 05:50 AST 13 U/L (13-39) 06/10/17 05:50 ALT 7 U/L (7-52) 06/10/17 05:50 Alkaline Phosphatase 119 U/L (34-104) H 06/10/17 05:50 Lactate Dehydrogenase 118 U/L (140-271) L 06/10/17 05:50 C-Reactive Protein 7.9 mg/dL (0.0-0.9) H 06/09/17 07:05 Total Protein 6.9 gm/dL (6.0-8.3) 06/10/17 05:50 Albumin 3.0 gm/dL (4.2-5.5) L 06/10/17 05:50 Globulin 3.9 gm/dL 06/10/17 05:50 Albumin/Globulin Ratio 0.8 (1.0-1.8) L 06/10/17 05:50 Triglycerides 85 mg/dL (<150) 06/09/17 07:05 Cholesterol 79 mg/dL (<200) 06/09/17 07:05 LDL Cholesterol Direct 30 mg/dL (75-193) L 06/09/17 07:05 HDL Cholesterol 32 mg/dL (23-92) 06/09/17 07:05 Vitamin B12 SEE REF. LAB REPORT 06/12/17 05:45 Folic Acid SEE REF. LAB REPORT 06/12/17 05:45 TSH 0.51 uIU/ml (0.34-5.60) 06/09/17 07:05 Urine Source RANDOM 06/09/17 10:02 Urine Color YELLOW 06/09/17 10:02 Urine Clarity HAZY (CLEAR) 06/09/17 10:02 Urine pH 5.5 (4.6 - 8.0) 06/09/17 10:02 Ur Specific [place] >= 1.030 (1.005-1.030) 06/09/17 10:02 Urine Protein TRACE mg/dL (NEGATIVE) 06/09/17 10:02 Urine Glucose (UA) NEGATIVE mg/dL (NEGATIVE) 06/09/17 10:02 Urine Ketones 15 mg/dL (NEGATIVE) H 06/09/17 10:02 Urine Blood NEGATIVE (NEGATIVE) 06/09/17 10:02 Urine Nitrate NEGATIVE (NEGATIVE) 06/09/17 10:02 Urine Bilirubin SMALL (NEGATIVE) H 06/09/17 10:02 Urine Urobilinogen 0.2 E.U./dL (0.2 - 1.0) 06/09/17 10:02 Ur Leukocyte Esterase NEGATIVE (NEGATIVE) 06/09/17 10:02 Urine RBC 2-5 /hpf (0-5) H 06/09/17 10:02 Urine WBC 6-10 /hpf (0-5) 06/09/17 10:02 Ur Epithelial Cells FEW /lpf (FEW) 06/09/17 10:02 Calcium Oxalate Crystal MODERATE /hpf 06/09/17 10:02 Urine Bacteria FEW /hpf (NONE SEEN) 06/09/17 10:02 Urine Yeast FEW /hpf (NONE SEEN) H 06/09/17 10:02 Vancomycin Trough 15.5 ug/mL (5-10) H 06/12/17 20:14 Coccidioides Ab SEE REF. LAB REPORT 06/09/17 07:05 TB (QFT) Gold In Tube NEGATIVE 06/10/17 05:50 TB Test (QFT) Mitogen 6.52 06/10/17 05:50 TB Test (QFT) Antigen 0.04 06/10/17 05:50 TB Test Antigen - Nil 0.00 06/10/17 05:50 TB Test TB - Nil 0.04 06/10/17 05:50 - Physical Exam Vitals and I&O: Vital Signs Temp 97.2 F 06/13/17 15:54 Pulse 76 06/13/17 15:54 Resp 20 06/13/17 15:54 BP 112/57 06/13/17 15:54 Pulse Ox 98 06/13/17 15:54 Intake & Output 06/12/17 06/13/17 06/13/17 18:59 06:59 18:59 Intake Total 100 1650 100 Balance 100 1650 100 Weight (lbs) 74.389 kg 76.975 kg Intake: Intake, IV Amount 100 350 100 Cefepime 2 gm In Dextrose 100 100 100 5% 100 ml @ 100 mls/hr IV Q12HR [facility] Rx#: [id number] Vancomycin HCl 1.25 gm In 250 Sodium Chloride 0.9% 250 ml @ 165 mls/hr IV Q18H [facility] Rx#:[id number] Oral 1300 Other: # Voids 2 # Bowel Movements 1 Weight Source Bedscale Bedscale Active Medications: Current Medications Acetaminophen/Hydrocodone Bitart ([place] 5mg/325mg) 2 tab PO Q4HR PRN PRN Reason: Pain (Severe) Stop: 08/08/17 04:35 Last Admin: 06/13/17 16:07 Dose: 2 tab Ascorbic Acid (Vitamin C) 500 mg PO DAILY [facility] Stop: 08/08/17 08:59 Last Admin: 06/13/17 08:35 Dose: 500 mg Baclofen (Lioresal) 10 mg PO TID [facility] Stop: 08/08/17 08:59 Last Admin: 06/13/17 13:23 Dose: 10 mg [place] Oil/Micronesian Balsam/Trypsin (Venelex) 1 appl TP DAILY JACK Stop: 08/10/17 08:59 Last Admin: 06/13/17 08:29 Dose: 1 appl Diclofenac Sodium (Voltaren) 50 mg PO DAILY JACK Stop: 08/10/17 08:59 Last Admin: 06/13/17 08:34 Dose: 50 mg Gabapentin (Neurontin) 300 mg PO TID JACK Stop: 08/08/17 08:59 Last Admin: 06/13/17 13:23 Dose: 300 mg Vancomycin HCl 1.25 gm/ Sodium (Chloride) 250 mls @ 165 mls/hr IV Q18H JACK Stop: 08/08/17 20:59 Last Admin: 06/13/17 15:47 Dose: 165 mls/hr Cefepime HCl 2 gm/ Dextrose 100 mls @ 100 mls/hr IV Q12HR JACK Stop: 08/08/17 20:59 Last Infusion: 06/13/17 09:56 Dose: Infused Insulin Aspart (Novolog Insulin Sliding Scale) 0 units SUBQ ACHS JACK PRN Reason: Protocol Stop: 08/08/17 07:29 Last Admin: 06/13/17 16:09 Dose: 4 units Insulin Detemir (Levemir Insulin) 12 units SUBQ HS JACK PRN Reason: Protocol Stop: 08/12/17 20:59 Lactobacillus Rhamnosus (Culturelle 15b) 1 each PO DAILY JACK Stop: 08/10/17 08:59 Last Admin: 06/13/17 08:38 Dose: 1 each Loperamide HCl (Imodium) 4 mg PO Q6H PRN PRN Reason: Diarrhea Stop: 08/08/17 20:48 Last Admin: 06/12/17 16:06 Dose: 4 mg Miscellaneous (Vancomycin Iv Per Pharmacy) 1 ea MC PRN PRN PRN Reason: PROTOCOL Stop: 08/08/17 04:45 Miscellaneous (Probiotic Screen) 1 ea PRN PRN PRN Reason: PROTOCOL Stop: 08/10/17 08:59 Multivitamins/Vitamin C (Theragran) 1 tab PO DAILY JACK Stop: 08/08/17 08:59 Last Admin: 06/13/17 08:35 Dose: 1 tab Ondansetron HCl (Zofran) 4 mg IV Q6H PRN PRN Reason: Nausea / Vomiting Stop: 08/08/17 08:16 Pantoprazole Sodium (Protonix) 40 mg PO BIDAC [facility] Stop: 08/08/17 07:29 Last Admin: 06/13/17 16:07 Dose: 40 mg Potassium Chloride (Klor-Con) 20 meq PO BID [facility] Stop: 08/08/17 08:59 Last Admin: 06/13/17 16:07 Dose: 20 meq General: no acute distress, well developed, well nourished HEENT: atraumatic, normocephalic, PERRLA, EOMI Neck: supple, other (Left sternoclavicular joint swelling.), no thyromegaly Cardiovascular: S1S2, regular Lungs: clear to auscultation bilaterally, clear to percussion Abdomen: soft, no tender, no distended, no rebound Extremities: no cyanosis, no clubbing, no edema Neurological: awake, alert, oriented, CN 2-12 intact Infectious Disease Assmt/Plan - Assessment Assessment: 1. Left lower neck swelling, symptomatic at this time. 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 Partially treated. ESR 90 and CRP 7.9. MRI report was reviewed. abscess and osteomyelitis of the left sternoclavicular joint and two fluid collections. 2. Diabetes mellitus type 2. 3. Hypertension. 4. COPD. 5. Dementia. 6. DJD. 7. GERD. 8. Diabetic ulcer of left foot. 9. Left foot TMA. 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 meanwhile, follow up on serologies fo cocci and TB Gold quantiferon. Will need percutaneous drainage of fluid and bone biopsy to reach final diagnosis. may need ortho eval. ? debridement of the left sternoclavicular joint. If percutaneous drainage of the fluid collection or bone biopsy performed, please send the following tests. Fluid: Cell count and differential/ gram stain and culture/susceptibility. AFB smear and cultures. Fungal smear and cultures. Cytology. Nutritional Asmnt/Malnutr-PDOC - Dietary Evaluation Malnutrition Findings (Please click <Entered> for more info): Nutritional Asmnt/Malnutrition Start: 06/09/17 15: 36 Text: Status: Complete Freq: Document 06/09/17 15:36 LCPOLINAG (Rec: 06/09/17 15:46 LCPOLINAG [email or web address]) Nutritional Asmnt/Malnutrition Patient General Information Nutritional Screening High Risk Consult Diagnosis neck mass Pertinent Medical Hx/Surgical Hx DM, HTN, asthma/COPD, dementia , renal transplant, partial left foot amputation Subjective Information Consult received for diabetic. Pt seen sitting up in bed at time of visit, wake and alert. Pt stated not hungry today, maybe better appetite tommorrow. Pt has no preference about food, every food is ok for him. Current Diet Order/ Nutrition Support CCHO-60gm Pertinent Medications vit C, D5-0.9%ns, glucotrol, novolog, cangomycin, theragran , protonix, kcl Pertinent Labs 06/09 glucose 164-178, POC 160- 227 Nutritional Hx/Data Height 1.7 m Height (Calculated Centimeters) 170.2 Current Weight (lbs) 72.575 kg Weight (Calculated Kilograms) 72.6 Weight (Calculated Grams) 38697.8 [place] Body Weight 148 Body Mass Index (BMI) 25.0 Weight Status Overweight GI Symptoms GI Symptoms None Last BM 06/09 Difficult in: None Skin Integrity/Comment: abrasion to left arm, lump to right knee, left upper neck Estimated Nutritional Goals BEE in Kcals: Using Current wt Calories/Kcals/Kg 23-27 Kcals Calculated 9227-3987 Protein: Using Current wt Protein g/k Protein Calculated 73 Fluid: ml 1679-2336ml (1ml/kcal) Nutritional Problem 1. Problem Problem altered nutrition related labs Etiology hx of DM Signs/Symptoms: glucose 164-178, POC 160-227 Malnutrition Alert Protein-Calorie Malnutrition N/A Is there a minimum of two criteria No selected? Query Text:Check all the applicable criteria. A minimum of two criteria are recommended for diagnosis of either severe or non-severe malnutrition. Intervention/Recommendation Comments [facility]. [facility]. Encouraged oral intake and balanced meal. 2. Monitor PO intake, wt, labs and skin integrity 3. F/U as moderate risk in 3-5 days, 06/12-06/14, PO check Expected Outcomes/Goals Expected Outcomes/Goals 1. PO intake to meet at least 75% of nutritional needs. 2. Wt stability, skin to remain intact, labs to approach WNL.
--- NOTE | 2017-06-13 17:58 | General Progress Note ---
Subjective - Review of Systems Service Date: 06/13/17 Subjective: No new sxs undergoing ecchocardiogram Objective - Results Result Diagrams: 06/13/17 05:25 06/13/17 05:25 Recent Labs: Laboratory Last Values WBC 9.9 Th/cmm (4.8-10.8) 06/13/17 05:25 RBC 3.56 Mil/cmm (3.80-5.80) L 06/13/17 05:25 Hgb 9.6 gm/dL (12-16) L 06/13/17 05:25 Hct 28.6 % (41.0-60) L 06/13/17 05:25 MCV 80.3 fl (80-99) 06/13/17 05:25 MCH 26.9 pg (27.0-31.0) L 06/13/17 05:25 MCHC Differential 33.5 pg (28.0-36.0) 06/13/17 05:25 RDW 15.2 % (11.5-20.0) 06/13/17 05:25 Plt Count 317 Th/cmm (150-400) 06/13/17 05:25 MPV 7.4 fl 06/13/17 05:25 Neutrophils % 70.4 % (40.0-80.0) 06/13/17 05:25 Lymphocytes % 19.0 % (20.0-50.0) L 06/13/17 05:25 Monocytes % 6.8 % (2.0-10.0) 06/13/17 05:25 Eosinophils % 3.4 % (0.0-5.0) 06/13/17 05:25 Basophils % 0.4 % (0.0-2.0) 06/13/17 05:25 ESR 90 mm/hr (0-20) H 06/10/17 05:50 PT 11.8 SECONDS (9.5-11.5) H 06/09/17 00:56 INR 1.12 (0.5-1.4) 06/09/17 00:56 PTT (Actin FS) 28.6 SECONDS (26.0-38.0) 06/09/17 00:56 Sodium 136 mEq/L (136-145) 06/13/17 05:25 Potassium 4.3 mEq/L (3.5-5.1) 06/13/17 05:25 Chloride 108 mEq/L (98-107) H 06/13/17 05:25 Carbon Dioxide 22.7 mEq/L (21.0-31.0) 06/13/17 05:25 Anion Gap 9.6 (7.0-16.0) 06/13/17 05:25 BUN 13 mg/dL (7-25) 06/13/17 05:25 Creatinine 0.7 mg/dL (0.7-1.3) 06/13/17 05:25 Est GFR ( Amer) TNP 06/13/17 05:25 Est GFR (Non-Af Amer) TNP 06/13/17 05:25 BUN/Creatinine Ratio 18.6 06/13/17 05:25 Glucose 164 mg/dL (70-105) H 06/13/17 05:25 POC Glucose 223 MG/DL (70 - 105) H 06/13/17 15:48 Hemoglobin A1c % 9.0 % (4.0-6.0) H 06/09/17 07:05 Whole Bld Lactic Acid 0.80 mmol/L (0.60-1.99) 06/09/17 Unknown Calcium 8.9 mg/dL (8.6-10.3) 06/13/17 05:25 Iron SEE REF.LAB REPORT 06/12/17 05:45 TIBC SEE REF. LAB REPORT 06/12/17 05:45 Iron Saturation SEE REF.LAB REPORT 06/12/17 05:45 Unsaturated IBC SEE REF.LAB REPORT 06/12/17 05:45 Ferritin SEE REF.LAB REPORT 06/12/17 05:45 Total Bilirubin 0.4 mg/dL (0.3-1.0) 06/10/17 05:50 AST 13 U/L (13-39) 06/10/17 05:50 ALT 7 U/L (7-52) 06/10/17 05:50 Alkaline Phosphatase 119 U/L (34-104) H 06/10/17 05:50 Lactate Dehydrogenase 118 U/L (140-271) L 06/10/17 05:50 C-Reactive Protein 7.9 mg/dL (0.0-0.9) H 06/09/17 07:05 Total Protein 6.9 gm/dL (6.0-8.3) 06/10/17 05:50 Albumin 3.0 gm/dL (4.2-5.5) L 06/10/17 05:50 Globulin 3.9 gm/dL 06/10/17 05:50 Albumin/Globulin Ratio 0.8 (1.0-1.8) L 06/10/17 05:50 Triglycerides 85 mg/dL (<150) 06/09/17 07:05 Cholesterol 79 mg/dL (<200) 06/09/17 07:05 LDL Cholesterol Direct 30 mg/dL (75-193) L 06/09/17 07:05 HDL Cholesterol 32 mg/dL (23-92) 06/09/17 07:05 Vitamin B12 SEE REF. LAB REPORT 06/12/17 05:45 Folic Acid SEE REF. LAB REPORT 06/12/17 05:45 TSH 0.51 uIU/ml (0.34-5.60) 06/09/17 07:05 Urine Source RANDOM 06/09/17 10:02 Urine Color YELLOW 06/09/17 10:02 Urine Clarity HAZY (CLEAR) 06/09/17 10:02 Urine pH 5.5 (4.6 - 8.0) 06/09/17 10:02 Ur Specific [place] >= 1.030 (1.005-1.030) 06/09/17 10:02 Urine Protein TRACE mg/dL (NEGATIVE) 06/09/17 10:02 Urine Glucose (UA) NEGATIVE mg/dL (NEGATIVE) 06/09/17 10:02 Urine Ketones 15 mg/dL (NEGATIVE) H 06/09/17 10:02 Urine Blood NEGATIVE (NEGATIVE) 06/09/17 10:02 Urine Nitrate NEGATIVE (NEGATIVE) 06/09/17 10:02 Urine Bilirubin SMALL (NEGATIVE) H 06/09/17 10:02 Urine Urobilinogen 0.2 E.U./dL (0.2 - 1.0) 06/09/17 10:02 Ur Leukocyte Esterase NEGATIVE (NEGATIVE) 06/09/17 10:02 Urine RBC 2-5 /hpf (0-5) H 06/09/17 10:02 Urine WBC 6-10 /hpf (0-5) 06/09/17 10:02 Ur Epithelial Cells FEW /lpf (FEW) 06/09/17 10:02 Calcium Oxalate Crystal MODERATE /hpf 06/09/17 10:02 Urine Bacteria FEW /hpf (NONE SEEN) 06/09/17 10:02 Urine Yeast FEW /hpf (NONE SEEN) H 06/09/17 10:02 Vancomycin Trough 15.5 ug/mL (5-10) H 06/12/17 20:14 Coccidioides Ab SEE REF. LAB REPORT 06/09/17 07:05 TB (QFT) Gold In Tube NEGATIVE 06/10/17 05:50 TB Test (QFT) Mitogen 6.52 06/10/17 05:50 TB Test (QFT) Antigen 0.04 06/10/17 05:50 TB Test Antigen - Nil 0.00 06/10/17 05:50 TB Test TB - Nil 0.04 06/10/17 05:50 - Physical Exam Vitals and I&O: Vital Signs Temp 97.2 F 06/13/17 15:54 Pulse 76 06/13/17 15:54 Resp 20 06/13/17 15:54 BP 112/57 06/13/17 15:54 Pulse Ox 98 06/13/17 15:54 Intake & Output 06/12/17 06/13/17 06/13/17 18:59 06:59 18:59 Intake Total 100 1650 100 Balance 100 1650 100 Weight (lbs) 74.389 kg 76.975 kg Intake: Intake, IV Amount 100 350 100 Cefepime 2 gm In Dextrose 100 100 100 5% 100 ml @ 100 mls/hr IV Q12HR [facility] Rx#: [id number] Vancomycin HCl 1.25 gm In 250 Sodium Chloride 0.9% 250 ml @ 165 mls/hr IV Q18H [facility] Rx#:[id number] Oral 1300 Other: # Voids 2 # Bowel Movements 1 Weight Source Bedscale Bedscale Active Medications: Current Medications Acetaminophen/Hydrocodone Bitart ([place] 5mg/325mg) 2 tab PO Q4HR PRN PRN Reason: Pain (Severe) Stop: 08/08/17 04:35 Last Admin: 06/13/17 16:07 Dose: 2 tab Ascorbic Acid (Vitamin C) 500 mg PO DAILY [facility] Stop: 08/08/17 08:59 Last Admin: 06/13/17 08:35 Dose: 500 mg Baclofen (Lioresal) 10 mg PO TID [facility] Stop: 08/08/17 08:59 Last Admin: 06/13/17 13:23 Dose: 10 mg [place] Oil/[place] Balsam/Trypsin (Venelex) 1 appl TP DAILY JACK Stop: 08/10/17 08:59 Last Admin: 06/13/17 08:29 Dose: 1 appl Diclofenac Sodium (Voltaren) 50 mg PO DAILY JACK Stop: 08/10/17 08:59 Last Admin: 06/13/17 08:34 Dose: 50 mg Gabapentin (Neurontin) 300 mg PO TID JACK Stop: 08/08/17 08:59 Last Admin: 06/13/17 13:23 Dose: 300 mg Vancomycin HCl 1.25 gm/ Sodium (Chloride) 250 mls @ 165 mls/hr IV Q18H [facility]ACK Stop: 08/08/17 20:59 Last Admin: 06/13/17 15:47 Dose: 165 mls/hr Cefepime HCl 2 gm/ Dextrose 100 mls @ 100 mls/hr IV Q12HR JACK Stop: 08/08/17 20:59 Last Infusion: 06/13/17 09:56 Dose: Infused Insulin Aspart (Novolog Insulin Sliding Scale) 0 units SUBQ ACHS JACK PRN Reason: Protocol Stop: 08/08/17 07:29 Last Admin: 06/13/17 16:09 Dose: 4 units Insulin Detemir (Levemir Insulin) 12 units SUBQ HS JACK PRN Reason: Protocol Stop: 08/12/17 20:59 Lactobacillus Rhamnosus (Culturelle 15b) 1 each PO DAILY JACK Stop: 08/10/17 08:59 Last Admin: 06/13/17 08:38 Dose: 1 each Loperamide HCl (Imodium) 4 mg PO Q6H PRN PRN Reason: Diarrhea Stop: 08/08/17 20:48 Last Admin: 06/12/17 16:06 Dose: 4 mg Miscellaneous (Vancomycin Iv Per Pharmacy) 1 ea MC PRN PRN PRN Reason: PROTOCOL Stop: 08/08/17 04:45 Miscellaneous (Probiotic Screen) 1 ea PRN PRN PRN Reason: PROTOCOL Stop: 08/10/17 08:59 Multivitamins/Vitamin C (Theragran) 1 tab PO DAILY JACK Stop: 08/08/17 08:59 Last Admin: 06/13/17 08:35 Dose: 1 tab Ondansetron HCl (Zofran) 4 mg IV Q6H PRN PRN Reason: Nausea / Vomiting Stop: 08/08/17 08:16 Pantoprazole Sodium (Protonix) 40 mg PO BIDAC [facility] Stop: 08/08/17 07:29 Last Admin: 06/13/17 16:07 Dose: 40 mg Potassium Chloride (Klor-Con) 20 meq PO BID JACK Stop: 08/08/17 08:59 Last Admin: 06/13/17 16:07 Dose: 20 meq General: Alert, Oriented x3, No acute distress HEENT: Atraumatic, PERRLA, EOMI Neck: Supple Cardiovascular: Regular rate, Normal S1, Normal S2 Lungs: Clear to auscultation Abdomen: Bowel sounds, Soft Neurological: Normal gait, Normal speech Assessment/Plan - Assessment Assessment: * left sternoclavicular joint osteo * Possible lymphoma CT abd/p: no lymphadenopathy MRI neck noted. may need bone marrow biopsy. follow anemia anderson check SPEP; DW Dr. Moran Nutritional Asmnt/Malnutr-PDOC - Dietary Evaluation Malnutrition Findings (Please click <Entered> for more info): Nutritional Asmnt/Malnutrition Start: 06/09/17 15: 36 Text: Status: Complete Freq: Document 06/09/17 15:36 LCHENG (Rec: 06/09/17 15:46 [email or web address] Nutritional Asmnt/Malnutrition Patient General Information Nutritional Screening High Risk Consult Diagnosis neck mass Pertinent Medical Hx/Surgical Hx DM, HTN, asthma/COPD, dementia , renal transplant, partial left foot amputation Subjective Information Consult received for diabetic. Pt seen sitting up in bed at time of visit, wake and alert. Pt stated not hungry today, maybe better appetite tommorrow. Pt has no preference about food, every food is ok for him. Current Diet Order/ Nutrition Support CCHO-60gm Pertinent Medications vit C, D5-0.9%ns, glucotrol, novolog, cangomycin, theragran , protonix, kcl Pertinent Labs 06/09 glucose 164-178, POC 160- 227 Nutritional Hx/Data Height 1.7 m Height (Calculated Centimeters) 170.2 Current Weight (lbs) 72.575 kg Weight (Calculated Kilograms) 72.6 Weight (Calculated Grams) 15735.8 [place] Body Weight 148 Body Mass Index (BMI) 25.0 Weight Status Overweight GI Symptoms GI Symptoms None Last BM 06/09 Difficult in: None Skin Integrity/Comment: abrasion to left arm, lump to right knee, left upper neck Estimated Nutritional Goals BEE in Kcals: Using Current wt Calories/Kcals/Kg 23-27 Kcals Calculated 7803-0211 Protein: Using Current wt Protein g/k Protein Calculated 73 Fluid: ml 1679-2336ml (1ml/kcal) Nutritional Problem 1. Problem Problem altered nutrition related labs Etiology hx of DM Signs/Symptoms: glucose 164-178, POC 160-227 Malnutrition Alert Protein-Calorie Malnutrition N/A Is there a minimum of two criteria No selected? Query Text:Check all the applicable criteria. A minimum of two criteria are recommended for diagnosis of either severe or non-severe malnutrition. Intervention/Recommendation Comments 1. Continue with CCHO-60gm diet as ordered. Encouraged oral intake and balanced meal. 2. Monitor PO intake, wt, labs and skin integrity 3. F/U as moderate risk in 3-5 days, 06/12-06/14, PO check Expected Outcomes/Goals Expected Outcomes/Goals 1. PO intake to meet at least 75% of nutritional needs. 2. Wt stability, skin to remain intact, labs to approach WNL.
[2017-06-13] MEDS ORDERED: Insulin Detemir 100 units/mL 10mL Vial SUBQ SCH (21:00)
--- NOTE | 2017-06-13 22:18 | Consultation ---
DATE OF CONSULTATION: 06/13/[address] Hernan James HISTORY OF PRESENT ILLNESS: This is a 76-year-old male patient with a known history of diabetes, COPD, hypertension, dementia, and renal transplant; admitted to [facility] with some mass in the left neck, which was evaluated. The patient had a biopsy, which was negative. Following this, the patient was transferred to [facility]. Reports from there not available at the present time. The patient had MRI here, which showed possible osteomyelitis of the clavicle head and hence, the patient is admitted. The patient will need biopsy again, hence cardiac consult is requested. PAST MEDICAL HISTORY: Diabetes mellitus type 2, COPD, hypertension, dementia, and history of renal transplant. FAMILY HISTORY: Unremarkable. SOCIAL HISTORY: No history of smoking or alcohol abuse. ALLERGIES: None. PHYSICAL EXAMINATION: VITAL SIGNS: Blood pressure 138/82, pulse 70, and respirations 20. HEAD: Normocephalic. No lumps or bumps. EYES: Pupils equal, reactive to light. Fundi show AV nicking, sclerae white, conjunctivae pink. NECK: Carotid 2+. Normal upstroke. JVD flat. Thyroid not palpable. Lymph nodes not palpable. The patient has mass in the left lower neck. ABDOMEN: Soft. LUNGS: Bilateral bronchovesicular breath sounds. HEART: PMI fifth intercostal space with lateral to midclavicular line. S1, S2. No S3, S4, soft systolic murmur. ABDOMEN: Soft. Liver, spleen not palpable. No organomegaly. Bowel sounds active. NEUROLOGIC: Unremarkable. EXTREMITIES: Peripheral pulses 2+. No pedal edema. CLINICAL IMPRESSION: Left lower neck mass, etiology unknown; osteomyelitis of the clavicle; diabetes mellitus type 2; hypertension; chronic obstructive pulmonary disease; dementia; left foot ulcer; and hyperlipidemia. PLAN: The patient to continue present care. We will get EKG and biopsy. [facility]# [id number]
--- NOTE | 2017-06-14 00:48 | Progress Notes ---
DATE: 06/13/[address] Robison. Case discussed with staff of the patient, reviewed records. This patient has been seen by Dr. Robison because of anxiety and depression. The patient has been slow to respond, anxious, depressed, has pain in his neck. He said that he has been anxious, depressed, diagnosed with osteomyelitis and left sternoclavicular joint and was treated with antibiotics multiple times. He is also diabetic, diagnosed with depression, not otherwise specified. The patient; however, he is not as agitated or irritable. He seems to be calmer, compliant with taking medication with no side effects, so we will continue the same treatment as per Dr. Robison. He did not seem like he is taking an antidepressant, seems to be improving without the need to do so. Thank you very much for allowing me to participate in the care of this most interesting gentleman. JOB# [id number]
--- NOTE | 2017-06-14 05:41 | General Progress Note ---
Subjective - Review of Systems Service Date: 06/14/17 Subjective: Patient was seen and examined. No acute distress. afebrile. ECHO. Patient to have CT guided aspiration of left sternoclavicular aspiration on Thursday. No new changes. Objective - Results Result Diagrams: 06/13/17 05:25 06/13/17 05:25 Recent Labs: Laboratory Last Values WBC 9.9 Th/cmm (4.8-10.8) 06/13/17 05:25 RBC 3.56 Mil/cmm (3.80-5.80) L 06/13/17 05:25 Hgb 9.6 gm/dL (12-16) L 06/13/17 05:25 Hct 28.6 % (41.0-60) L 06/13/17 05:25 MCV 80.3 fl (80-99) 06/13/17 05:25 MCH 26.9 pg (27.0-31.0) L 06/13/17 05:25 MCHC Differential 33.5 pg (28.0-36.0) 06/13/17 05:25 RDW 15.2 % (11.5-20.0) 06/13/17 05:25 Plt Count 317 Th/cmm (150-400) 06/13/17 05:25 MPV 7.4 fl 06/13/17 05:25 Neutrophils % 70.4 % (40.0-80.0) 06/13/17 05:25 Lymphocytes % 19.0 % (20.0-50.0) L 06/13/17 05:25 Monocytes % 6.8 % (2.0-10.0) 06/13/17 05:25 Eosinophils % 3.4 % (0.0-5.0) 06/13/17 05:25 Basophils % 0.4 % (0.0-2.0) 06/13/17 05:25 ESR 90 mm/hr (0-20) H 06/10/17 05:50 PT 11.8 SECONDS (9.5-11.5) H 06/09/17 00:56 INR 1.12 (0.5-1.4) 06/09/17 00:56 PTT (Actin FS) 28.6 SECONDS (26.0-38.0) 06/09/17 00:56 Sodium 136 mEq/L (136-145) 06/13/17 05:25 Potassium 4.3 mEq/L (3.5-5.1) 06/13/17 05:25 Chloride 108 mEq/L (98-107) H 06/13/17 05:25 Carbon Dioxide 22.7 mEq/L (21.0-31.0) 06/13/17 05:25 Anion Gap 9.6 (7.0-16.0) 06/13/17 05:25 BUN 13 mg/dL (7-25) 06/13/17 05:25 Creatinine 0.7 mg/dL (0.7-1.3) 06/13/17 05:25 Est GFR ( Amer) TNP 06/13/17 05:25 Est GFR (Non-Af Amer) TNP 06/13/17 05:25 BUN/Creatinine Ratio 18.6 06/13/17 05:25 Glucose 164 mg/dL (70-105) H 06/13/17 05:25 POC Glucose 194 MG/DL (70 - 105) H 06/13/17 20:15 Hemoglobin A1c % 9.0 % (4.0-6.0) H 06/09/17 07:05 Whole Bld Lactic Acid 0.80 mmol/L (0.60-1.99) 06/09/17 Unknown Calcium 8.9 mg/dL (8.6-10.3) 06/13/17 05:25 Iron SEE REF.LAB REPORT 06/12/17 05:45 TIBC SEE REF. LAB REPORT 06/12/17 05:45 Iron Saturation SEE REF.LAB REPORT 06/12/17 05:45 Unsaturated IBC SEE REF.LAB REPORT 06/12/17 05:45 Ferritin SEE REF.LAB REPORT 06/12/17 05:45 Total Bilirubin 0.4 mg/dL (0.3-1.0) 06/10/17 05:50 AST 13 U/L (13-39) 06/10/17 05:50 ALT 7 U/L (7-52) 06/10/17 05:50 Alkaline Phosphatase 119 U/L (34-104) H 06/10/17 05:50 Lactate Dehydrogenase 118 U/L (140-271) L 06/10/17 05:50 C-Reactive Protein 7.9 mg/dL (0.0-0.9) H 06/09/17 07:05 Total Protein 6.9 gm/dL (6.0-8.3) 06/10/17 05:50 Albumin 3.0 gm/dL (4.2-5.5) L 06/10/17 05:50 Globulin 3.9 gm/dL 06/10/17 05:50 Albumin/Globulin Ratio 0.8 (1.0-1.8) L 06/10/17 05:50 Triglycerides 85 mg/dL (<150) 06/09/17 07:05 Cholesterol 79 mg/dL (<200) 06/09/17 07:05 LDL Cholesterol Direct 30 mg/dL (75-193) L 06/09/17 07:05 HDL Cholesterol 32 mg/dL (23-92) 06/09/17 07:05 Vitamin B12 SEE REF. LAB REPORT 06/12/17 05:45 Folic Acid SEE REF. LAB REPORT 06/12/17 05:45 TSH 0.51 uIU/ml (0.34-5.60) 06/09/17 07:05 Urine Source RANDOM 06/09/17 10:02 Urine Color YELLOW 06/09/17 10:02 Urine Clarity HAZY (CLEAR) 06/09/17 10:02 Urine pH 5.5 (4.6 - 8.0) 06/09/17 10:02 Ur Specific [place] >= 1.030 (1.005-1.030) 06/09/17 10:02 Urine Protein TRACE mg/dL (NEGATIVE) 06/09/17 10:02 Urine Glucose (UA) NEGATIVE mg/dL (NEGATIVE) 06/09/17 10:02 Urine Ketones 15 mg/dL (NEGATIVE) H 06/09/17 10:02 Urine Blood NEGATIVE (NEGATIVE) 06/09/17 10:02 Urine Nitrate NEGATIVE (NEGATIVE) 06/09/17 10:02 Urine Bilirubin SMALL (NEGATIVE) H 06/09/17 10:02 Urine Urobilinogen 0.2 E.U./dL (0.2 - 1.0) 06/09/17 10:02 Ur Leukocyte Esterase NEGATIVE (NEGATIVE) 06/09/17 10:02 Urine RBC 2-5 /hpf (0-5) H 06/09/17 10:02 Urine WBC 6-10 /hpf (0-5) 06/09/17 10:02 Ur Epithelial Cells FEW /lpf (FEW) 06/09/17 10:02 Calcium Oxalate Crystal MODERATE /hpf 06/09/17 10:02 Urine Bacteria FEW /hpf (NONE SEEN) 06/09/17 10:02 Urine Yeast FEW /hpf (NONE SEEN) H 06/09/17 10:02 Vancomycin Trough 15.5 ug/mL (5-10) H 06/12/17 20:14 Coccidioides Ab SEE REF. LAB REPORT 06/09/17 07:05 TB (QFT) Gold In Tube NEGATIVE 06/10/17 05:50 TB Test (QFT) Mitogen 6.52 06/10/17 05:50 TB Test (QFT) Antigen 0.04 06/10/17 05:50 TB Test Antigen - Nil 0.00 06/10/17 05:50 TB Test TB - Nil 0.04 06/10/17 05:50 - Physical Exam Vitals and I&O: Vital Signs Temp 96.9 F 06/14/17 04:04 Pulse 74 06/14/17 04:04 Resp 17 06/14/17 04:04 BP 137/59 06/14/17 04:04 Pulse Ox 97 06/14/17 04:04 Intake & Output 06/13/17 06/13/17 06/14/17 06:59 18:59 06:59 Intake Total 1650 100 100 Balance 1650 100 100 Weight (lbs) 76.975 kg 76.748 kg Intake: Intake, IV Amount 350 100 100 Cefepime 2 gm In Dextrose 100 100 100 5% 100 ml @ 100 mls/hr IV Q12HR [facility] Rx#: [id number] Vancomycin HCl 1.25 gm In 250 Sodium Chloride 0.9% 250 ml @ 165 mls/hr IV Q18H [facility] Rx#:[id number] Oral 1300 Other: # Voids 2 4 # Bowel Movements 1 2 Weight Source Bedscale Bedscale Active Medications: Current Medications Acetaminophen/Hydrocodone Bitart ([place] 5mg/325mg) 2 tab PO Q4HR PRN PRN Reason: Pain (Severe) Stop: 08/08/17 04:35 Last Admin: 06/13/17 16:07 Dose: 2 tab Ascorbic Acid (Vitamin C) 500 mg PO DAILY [facility] Stop: 08/08/17 08:59 Last Admin: 06/13/17 08:35 Dose: 500 mg Baclofen (Lioresal) 10 mg PO TID JACK Stop: 08/08/17 08:59 Last Admin: 06/13/17 20:22 Dose: 10 mg [place] Oil/[place] Balsam/Trypsin (Venelex) 1 appl TP DAILY JACK Stop: 08/10/17 08:59 Last Admin: 06/13/17 08:29 Dose: 1 appl Diclofenac Sodium (Voltaren) 50 mg PO DAILY [facility]ACK Stop: 08/10/17 08:59 Last Admin: 06/13/17 08:34 Dose: 50 mg Gabapentin (Neurontin) 300 mg PO TID JACK Stop: 08/08/17 08:59 Last Admin: 06/13/17 20:22 Dose: 300 mg Vancomycin HCl 1.25 gm/ Sodium (Chloride) 250 mls @ 165 mls/hr IV Q18H [facility] Stop: 08/08/17 20:59 Last Admin: 06/13/17 15:47 Dose: 165 mls/hr Cefepime HCl 2 gm/ Dextrose 100 mls @ 100 mls/hr IV Q12HR [facility] Stop: 08/08/17 20:59 Last Infusion: 06/13/17 22:42 Dose: Infused Insulin Aspart (Novolog Insulin Sliding Scale) 0 units SUBQ ACHS JACK PRN Reason: Protocol Stop: 08/08/17 07:29 Last Admin: 06/13/17 20:22 Dose: 2 units Insulin Detemir (Levemir Insulin) 14 units SUBQ HS JACK PRN Reason: Protocol Stop: 08/13/17 20:59 Lactobacillus Rhamnosus (Culturelle 15b) 1 each PO DAILY JACK Stop: 08/10/17 08:59 Last Admin: 06/13/17 08:38 Dose: 1 each Loperamide HCl (Imodium) 4 mg PO Q6H PRN PRN Reason: Diarrhea Stop: 08/08/17 20:48 Last Admin: 06/13/17 20:22 Dose: 4 mg Miscellaneous (Vancomycin Iv Per Pharmacy) 1 ea MC PRN PRN PRN Reason: PROTOCOL Stop: 08/08/17 04:45 Miscellaneous (Probiotic Screen) 1 ea MC PRN PRN PRN Reason: PROTOCOL Stop: 08/10/17 08:59 Multivitamins/Vitamin C (Theragran) 1 tab PO DAILY [facility] Stop: 08/08/17 08:59 Last Admin: 06/13/17 08:35 Dose: 1 tab Ondansetron HCl (Zofran) 4 mg IV Q6H PRN PRN Reason: Nausea / Vomiting Stop: 08/08/17 08:16 Pantoprazole Sodium (Protonix) 40 mg PO BIDAC [facility] Stop: 08/08/17 07:29 Last Admin: 06/13/17 16:07 Dose: 40 mg Potassium Chloride (Klor-Con) 20 meq PO BID JACK Stop: 08/08/17 08:59 Last Admin: 06/13/17 16:07 Dose: 20 meq General: Alert, Oriented x3, No acute distress HEENT: Atraumatic, PERRLA, EOMI Neck: Supple Cardiovascular: Regular rate, Normal S1, Normal S2 Lungs: Clear to auscultation Abdomen: Bowel sounds, Soft Neurological: Normal gait, Normal speech Assessment/Plan - Assessment Assessment: Left lower neck swelling, symptomatic at this time. 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 Partially treated. ESR 90 and CRP 7.9. abscess and osteomyelitisof the left sternoclavicular joint and two fluid collections. DM type 2 ... increase Levemir to 12u HS COPD Dementia DJD GERD Diabetic left foot ulcer HTN leukocytosis right knee mass Left foot TMA Anemia - Plan Plan: MRA Chest CT Abd/pelvis Bone Scan ID consult Surgical consult Hem/Onc consult Ortho consult repeat CBC,CMP Vancomycin per pharmacy IV fluids continue home meds. PT eval for LTAC evaluation. Nutritional Asmnt/Malnutr-PDOC - Dietary Evaluation Malnutrition Findings (Please click <Entered> for more info): Nutritional Asmnt/Malnutrition Start: 06/09/17 15: 36 Text: Status: Complete Freq: Document 06/09/17 15:36 LCPOLINAG (Rec: 06/09/17 15:46 LCPOLINAG [email or web address]) Nutritional Asmnt/Malnutrition Patient General Information Nutritional Screening High Risk Consult Diagnosis neck mass Pertinent Medical Hx/Surgical Hx DM, HTN, asthma/COPD, dementia , renal transplant, partial left foot amputation Subjective Information Consult received for diabetic. Pt seen sitting up in bed at time of visit, wake and alert. Pt stated not hungry today, maybe better appetite tommorrow. Pt has no preference about food, every food is ok for him. Current Diet Order/ Nutrition Support CCHO-60gm Pertinent Medications vit C, D5-0.9%ns, glucotrol, novolog, cangomycin, theragran , protonix, kcl Pertinent Labs 06/09 glucose 164-178, POC 160- 227 Nutritional Hx/Data Height 1.7 m Height (Calculated Centimeters) 170.2 Current Weight (lbs) 72.575 kg Weight (Calculated Kilograms) 72.6 Weight (Calculated Grams) 11826.8 [place] Body Weight 148 Body Mass Index (BMI) 25.0 Weight Status Overweight GI Symptoms GI Symptoms None Last BM 06/09 Difficult in: None Skin Integrity/Comment: abrasion to left arm, lump to right knee, left upper neck Estimated Nutritional Goals BEE in Kcals: Using Current wt Calories/Kcals/Kg 23-27 Kcals Calculated 8266-0054 Protein: Using Current wt Protein g/k Protein Calculated 73 Fluid: ml 1679-2336ml (1ml/kcal) Nutritional Problem 1. Problem Problem altered nutrition related labs Etiology hx of DM Signs/Symptoms: glucose 164-178, POC 160-227 Malnutrition Alert Protein-Calorie Malnutrition N/A Is there a minimum of two criteria No selected? Query Text:Check all the applicable criteria. A minimum of two criteria are recommended for diagnosis of either severe or non-severe malnutrition. Intervention/Recommendation Comments 1. Continue with [facility]-60gm diet as ordered. Encouraged oral intake and balanced meal. 2. Monitor PO intake, wt, labs and skin integrity 3. F/U as moderate risk in 3-5 days, 06/12-06/14, PO check Expected Outcomes/Goals Expected Outcomes/Goals 1. PO intake to meet at least 75% of nutritional needs. 2. Wt stability, skin to remain intact, labs to approach WNL.
[2017-06-14] MEDS: Pantoprazole 40 mg EC Tab PO SCH ×2 (06:41→16:26)
[2017-06-14] MEDS: INSULIN ASPART SLIDING SCALE 100 UNITS/ML UNIT SUBQ SCH ×4 (08:19→21:53)
[2017-06-14] MEDS: Venelex 60gm Tube TP SCH (08:37)
[2017-06-14] MEDS: Potassium Chloride 20 mEq ER Tab PO SCH ×2 (08:37→16:26)
[2017-06-14] MEDS: Multivitamin Tab PO SCH (08:37)
[2017-06-14] MEDS: Lactobacillus Rhamnosus GG 15 Billion CFU CAP.SPRINK PO SCH (08:37)
--- NOTE | 2017-06-14 09:39 | Diagnostic Imaging Report ---
Ultrasound examination of left upper chest HISTORY: Chest wall mass Findings: Real-time ultrasound examination of the upper left chest anteriorly demonstrates 3.4 cm heterogeneous mass. Previous CT examination of the chest of 06/05/2013 demonstrated soft tissue swelling about the left sternoclavicular joint. Increased vascularity in the area might be suggestive of hyperemia and inflammatory changes. Clinical correlation recommended. IMPRESSION: 3.4 cm left subcutaneous soft tissue mass about left sternoclavicular joint might represent infectious process with increased vascularity.
--- NOTE | 2017-06-14 13:48 | Infectious Disease Prog Note ---
Infectious Disease Subjective - Review of Systems Service Date: 06/14/17 Subjective: There is no new change, no fever. Infectious Disease Objective - Results Result Diagrams: 06/13/17 05:25 06/13/17 05:25 Recent Labs: Laboratory Last Values WBC 9.9 Th/cmm (4.8-10.8) 06/13/17 05:25 RBC 3.56 Mil/cmm (3.80-5.80) L 06/13/17 05:25 Hgb 9.6 gm/dL (12-16) L 06/13/17 05:25 Hct 28.6 % (41.0-60) L 06/13/17 05:25 MCV 80.3 fl (80-99) 06/13/17 05:25 MCH 26.9 pg (27.0-31.0) L 06/13/17 05:25 MCHC Differential 33.5 pg (28.0-36.0) 06/13/17 05:25 RDW 15.2 % (11.5-20.0) 06/13/17 05:25 Plt Count 317 Th/cmm (150-400) 06/13/17 05:25 MPV 7.4 fl 06/13/17 05:25 Neutrophils % 70.4 % (40.0-80.0) 06/13/17 05:25 Lymphocytes % 19.0 % (20.0-50.0) L 06/13/17 05:25 Monocytes % 6.8 % (2.0-10.0) 06/13/17 05:25 Eosinophils % 3.4 % (0.0-5.0) 06/13/17 05:25 Basophils % 0.4 % (0.0-2.0) 06/13/17 05:25 ESR 90 mm/hr (0-20) H 06/10/17 05:50 PT 11.8 SECONDS (9.5-11.5) H 06/09/17 00:56 INR 1.12 (0.5-1.4) 06/09/17 00:56 PTT (Actin FS) 28.6 SECONDS (26.0-38.0) 06/09/17 00:56 Sodium 136 mEq/L (136-145) 06/13/17 05:25 Potassium 4.3 mEq/L (3.5-5.1) 06/13/17 05:25 Chloride 108 mEq/L (98-107) H 06/13/17 05:25 Carbon Dioxide 22.7 mEq/L (21.0-31.0) 06/13/17 05:25 Anion Gap 9.6 (7.0-16.0) 06/13/17 05:25 BUN 13 mg/dL (7-25) 06/13/17 05:25 Creatinine 0.7 mg/dL (0.7-1.3) 06/13/17 05:25 Est GFR ( Amer) TNP 06/13/17 05:25 Est GFR (Non-Af Amer) TNP 06/13/17 05:25 BUN/Creatinine Ratio 18.6 06/13/17 05:25 Glucose 164 mg/dL (70-105) H 06/13/17 05:25 POC Glucose 247 MG/DL (70 - 105) H 06/14/17 11:54 Hemoglobin A1c % 9.0 % (4.0-6.0) H 06/09/17 07:05 Whole Bld Lactic Acid 0.80 mmol/L (0.60-1.99) 06/09/17 Unknown Calcium 8.9 mg/dL (8.6-10.3) 06/13/17 05:25 Iron SEE REF.LAB REPORT 06/12/17 05:45 TIBC SEE REF. LAB REPORT 06/12/17 05:45 Iron Saturation SEE REF.LAB REPORT 06/12/17 05:45 Unsaturated IBC SEE REF.LAB REPORT 06/12/17 05:45 Ferritin SEE REF.LAB REPORT 06/12/17 05:45 Total Bilirubin 0.4 mg/dL (0.3-1.0) 06/10/17 05:50 AST 13 U/L (13-39) 06/10/17 05:50 ALT 7 U/L (7-52) 06/10/17 05:50 Alkaline Phosphatase 119 U/L (34-104) H 06/10/17 05:50 Lactate Dehydrogenase 118 U/L (140-271) L 06/10/17 05:50 C-Reactive Protein 7.9 mg/dL (0.0-0.9) H 06/09/17 07:05 Total Protein 6.9 gm/dL (6.0-8.3) 06/10/17 05:50 Albumin 3.0 gm/dL (4.2-5.5) L 06/10/17 05:50 Globulin 3.9 gm/dL 06/10/17 05:50 Albumin/Globulin Ratio 0.8 (1.0-1.8) L 06/10/17 05:50 Triglycerides 85 mg/dL (<150) 06/09/17 07:05 Cholesterol 79 mg/dL (<200) 06/09/17 07:05 LDL Cholesterol Direct 30 mg/dL (75-193) L 06/09/17 07:05 HDL Cholesterol 32 mg/dL (23-92) 06/09/17 07:05 Vitamin B12 SEE REF. LAB REPORT 06/12/17 05:45 Folic Acid SEE REF. LAB REPORT 06/12/17 05:45 TSH 0.51 uIU/ml (0.34-5.60) 06/09/17 07:05 Urine Source RANDOM 06/09/17 10:02 Urine Color YELLOW 06/09/17 10:02 Urine Clarity HAZY (CLEAR) 06/09/17 10:02 Urine pH 5.5 (4.6 - 8.0) 06/09/17 10:02 Ur Specific [place] >= 1.030 (1.005-1.030) 06/09/17 10:02 Urine Protein TRACE mg/dL (NEGATIVE) 06/09/17 10:02 Urine Glucose (UA) NEGATIVE mg/dL (NEGATIVE) 06/09/17 10:02 Urine Ketones 15 mg/dL (NEGATIVE) H 06/09/17 10:02 Urine Blood NEGATIVE (NEGATIVE) 06/09/17 10:02 Urine Nitrate NEGATIVE (NEGATIVE) 06/09/17 10:02 Urine Bilirubin SMALL (NEGATIVE) H 06/09/17 10:02 Urine Urobilinogen 0.2 E.U./dL (0.2 - 1.0) 06/09/17 10:02 Ur Leukocyte Esterase NEGATIVE (NEGATIVE) 06/09/17 10:02 Urine RBC 2-5 /hpf (0-5) H 06/09/17 10:02 Urine WBC 6-10 /hpf (0-5) 06/09/17 10:02 Ur Epithelial Cells FEW /lpf (FEW) 06/09/17 10:02 Calcium Oxalate Crystal MODERATE /hpf 06/09/17 10:02 Urine Bacteria FEW /hpf (NONE SEEN) 06/09/17 10:02 Urine Yeast FEW /hpf (NONE SEEN) H 06/09/17 10:02 Vancomycin Trough 15.5 ug/mL (5-10) H 06/12/17 20:14 Coccidioides Ab SEE REF. LAB REPORT 06/09/17 07:05 TB (QFT) Gold In Tube NEGATIVE 06/10/17 05:50 TB Test (QFT) Mitogen 6.52 06/10/17 05:50 TB Test (QFT) Antigen 0.04 06/10/17 05:50 TB Test Antigen - Nil 0.00 06/10/17 05:50 TB Test TB - Nil 0.04 06/10/17 05:50 - Physical Exam Vitals and I&O: Vital Signs Temp 97.4 F 06/14/17 11:59 Pulse 71 06/14/17 11:59 Resp 18 06/14/17 11:59 BP 121/59 06/14/17 11:59 Pulse Ox 97 06/14/17 11:59 Intake & Output 06/13/17 06/14/17 06/14/17 18:59 06:59 18:59 Intake Total 350 100 240 Output Total 400 Balance 350 100 -160 Weight (lbs) 76.748 kg 76.657 kg Intake: Intake, IV Amount 350 100 Cefepime 2 gm In Dextrose 100 100 5% 100 ml @ 100 mls/hr IV Q12HR [facility] Rx#: [id number] Vancomycin HCl 1.25 gm In 250 Sodium Chloride 0.9% 250 ml @ 165 mls/hr IV Q18H [facility] Rx#:[id number] Oral 240 Output: Urine 400 Other: # Voids 4 # Bowel Movements 2 Stool Characteristics Soft Weight Source Bedscale Bedscale Active Medications: Current Medications Acetaminophen/Hydrocodone Bitart ([place] 5mg/325mg) 2 tab PO Q4HR PRN PRN Reason: Pain (Severe) Stop: 08/08/17 04:35 Last Admin: 06/13/17 16:07 Dose: 2 tab Ascorbic Acid (Vitamin C) 500 mg PO DAILY [facility] Stop: 08/08/17 08:59 Last Admin: 06/14/17 08:37 Dose: 500 mg Baclofen (Lioresal) 10 mg PO TID [facility] Stop: 08/08/17 08:59 Last Admin: 06/14/17 08:37 Dose: 10 mg [place] Oil/[place] Balsam/Trypsin (Venelex) 1 appl TP DAILY [facility] Stop: 08/10/17 08:59 Last Admin: 06/14/17 08:37 Dose: 1 appl Diclofenac Sodium (Voltaren) 50 mg PO DAILY [facility] Stop: 08/10/17 08:59 Last Admin: 06/14/17 08:37 Dose: 50 mg Gabapentin (Neurontin) 300 mg PO TID JACK Stop: 08/08/17 08:59 Last Admin: 06/14/17 08:37 Dose: 300 mg Vancomycin HCl 1.25 gm/ Sodium (Chloride) 250 mls @ 165 mls/hr IV Q18H [facility] Stop: 08/08/17 20:59 Last Admin: 06/14/17 08:41 Dose: 165 mls/hr Cefepime HCl 2 gm/ Dextrose 100 mls @ 100 mls/hr IV Q12HR [facility] Stop: 08/08/17 20:59 Last Admin: 06/14/17 08:36 Dose: 100 mls/hr Insulin Aspart (Novolog Insulin Sliding Scale) 0 units SUBQ ACHS JACK PRN Reason: Protocol Stop: 08/08/17 07:29 Last Admin: 06/14/17 12:31 Dose: 4 units Insulin Detemir (Levemir Insulin) 14 units SUBQ HS JACK PRN Reason: Protocol Stop: 08/13/17 20:59 Lactobacillus Rhamnosus (Culturelle 15b) 1 each PO DAILY [facility] Stop: 08/10/17 08:59 Last Admin: 06/14/17 08:37 Dose: 1 each Loperamide HCl (Imodium) 4 mg PO Q6H PRN PRN Reason: Diarrhea Stop: 08/08/17 20:48 Last Admin: 06/13/17 20:22 Dose: 4 mg Miscellaneous (Vancomycin Iv Per Pharmacy) 1 ea MC PRN PRN PRN Reason: PROTOCOL Stop: 08/08/17 04:45 Miscellaneous (Probiotic Screen) 1 ea MC PRN PRN PRN Reason: PROTOCOL Stop: 08/10/17 08:59 Multivitamins/Vitamin C (Theragran) 1 tab PO DAILY [facility] Stop: 08/08/17 08:59 Last Admin: 06/14/17 08:37 Dose: 1 tab Ondansetron HCl (Zofran) 4 mg IV Q6H PRN PRN Reason: Nausea / Vomiting Stop: 08/08/17 08:16 Pantoprazole Sodium (Protonix) 40 mg PO BIDAC [facility] Stop: 08/08/17 07:29 Last Admin: 06/14/17 06:41 Dose: 40 mg Potassium Chloride (Klor-Con) 20 meq PO BID [facility] Stop: 08/08/17 08:59 Last Admin: 06/14/17 08:37 Dose: 20 meq Sitagliptin Phosphate (Januvia) 50 mg PO DAILY [facility] Stop: 08/13/17 08:59 Last Admin: 06/14/17 08:37 Dose: 50 mg General: no acute distress, well developed, well nourished HEENT: atraumatic, normocephalic, PERRLA, EOMI, moist mucous membrane Neck: supple, other (tender swelling of the left sternoclavicular joint), no thyromegaly, no lymphadenopathy, no rigid Cardiovascular: S1S2, regular Lungs: clear to auscultation bilaterally, clear to percussion, no crackles Abdomen: soft, no tender, no distended Extremities: no cyanosis, no clubbing, no edema Neurological: awake, alert, oriented Skin: intact Infectious Disease Assmt/Plan - Assessment Assessment: 1. Left lower neck swelling, symptomatic at this time. 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 Partially treated. ESR 90 and CRP 7.9. MRI report was reviewed. abscess and osteomyelitis of the left sternoclavicular joint and two fluid collections. 2. Diabetes mellitus type 2. 3. Hypertension. 4. COPD. 5. Dementia. 6. DJD. 7. GERD. 8. Diabetic ulcer of left foot. 9. Left foot TMA. 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 meanwhile, follow up on serologies fo cocci and TB Gold quantiferon. Will need percutaneous drainage of fluid and bone biopsy to reach final diagnosis. may need ortho eval. ? debridement of the left sternoclavicular joint. If percutaneous drainage of the fluid collection or bone biopsy performed, please send the following tests. Fluid: Cell count and differential/ gram stain and culture/susceptibility. AFB smear and cultures. Fungal smear and cultures. Cytology. Nutritional Asmnt/Malnutr-PDOC - Dietary Evaluation Malnutrition Findings (Please click <Entered> for more info): Nutritional Asmnt/Malnutrition Start: 06/09/17 15: 36 Text: Status: Complete Freq: Document 06/09/17 15:36 LCHENG (Rec: 06/09/17 15:46 LCHENG [email or web address]) Nutritional Asmnt/Malnutrition Patient General Information Nutritional Screening High Risk Consult Diagnosis neck mass Pertinent Medical Hx/Surgical Hx DM, HTN, asthma/COPD, dementia , renal transplant, partial left foot amputation Subjective Information Consult received for diabetic. Pt seen sitting up in bed at time of visit, wake and alert. Pt stated not hungry today, maybe better appetite tommorrow. Pt has no preference about food, every food is ok for him. Current Diet Order/ Nutrition Support CCHO-60gm Pertinent Medications vit C, D5-0.9%ns, glucotrol, novolog, cangomycin, theragran , protonix, kcl Pertinent Labs 06/09 glucose 164-178, POC 160- 227 Nutritional Hx/Data Height 1.7 m Height (Calculated Centimeters) 170.2 Current Weight (lbs) 72.575 kg Weight (Calculated Kilograms) 72.6 Weight (Calculated Grams) 36554.8 [place] Body Weight 148 Body Mass Index (BMI) 25.0 Weight Status Overweight GI Symptoms GI Symptoms None Last BM 06/09 Difficult in: None Skin Integrity/Comment: abrasion to left arm, lump to right knee, left upper neck Estimated Nutritional Goals BEE in Kcals: Using Current wt Calories/Kcals/Kg 23-27 Kcals Calculated 2598-5954 Protein: Using Current wt Protein g/k Protein Calculated 73 Fluid: ml 1679-2336ml (1ml/kcal) Nutritional Problem 1. Problem Problem altered nutrition related labs Etiology hx of DM Signs/Symptoms: glucose 164-178, POC 160-227 Malnutrition Alert Protein-Calorie Malnutrition N/A Is there a minimum of two criteria No selected? Query Text:Check all the applicable criteria. A minimum of two criteria are recommended for diagnosis of either severe or non-severe malnutrition. Intervention/Recommendation Comments [facility]. [facility]. Encouraged oral intake and balanced meal. 2. Monitor PO intake, wt, labs and skin integrity 3. F/U as moderate risk in 3-5 days, 06/12-06/14, PO check Expected Outcomes/Goals Expected Outcomes/Goals 1. PO intake to meet at least 75% of nutritional needs. 2. Wt stability, skin to remain intact, labs to approach WNL.
--- NOTE | 2017-06-14 16:37 | Cardiology ---
06/12/[address] Hernan James. M-MODE ECHOCARDIOGRAM: Mitral valve, anterior leaflet of mitral valve shows normal excursion, EF velocity. Posterior leaflet of the mitral valve shows normal excursion. Left ventricular posterior shows increased thickness, normal excursion. Interventricular septum shows increased thickness, normal excursion, hypertrophy of the left ventricle, ejection fraction 50%, left atrium normal. Aortic root shows normal dimension, normal excursion of aortic leaflets. CONCLUSION: Minimal hypertrophy of the left ventricle, ejection fraction 50%. 2D ECHO: Long axis view showed normal sized left ventricle with minimal hypertrophy of the left ventricle. Left atrium normal. Aortic root shows normal dimension, normal excursion of aortic leaflets. Short axis view of mitral valve normal. Short axis view of aortic valve normal. Apical four chamber view showed normal sized left ventricle with minimal hypertrophy of the left ventricle. Left atrium normal. Right ventricular cavity and right atrium normal. No pericardial effusion. CONCLUSION: Minimal hypertrophy of the left ventricle, ejection fraction 50%. Doppler study shows prominent area consistent with poor compliance of left ventricle and mild pulmonary regurgitation. [facility]# [id number]
[2017-06-14] MEDS: Hydrocodone/APAP 5mg/325mg Tab PO PRN (20:22)
[2017-06-14] MEDS: Insulin Detemir 100 units/mL 10mL Vial SUBQ SCH (21:53)
--- NOTE | 2017-06-15 00:17 | Progress Notes ---
DATE: 06/14/2017 Case discussed with staff of the patient, reviewed records. The patient is much calmer, complains of pain in his neck. His agitation, irritability is down. He denies any current intent to harm himself or anybody. No behavior issues. Thank you very much for allowing me to participate in the care of this most interesting gentleman. JOB# [id number]
[2017-06-15] MEDS: Hydrocodone/APAP 5mg/325mg Tab PO PRN (01:39)
[2017-06-15] MEDS: Pantoprazole 40 mg EC Tab PO SCH ×2 (06:42→16:37)
--- NOTE | 2017-06-15 08:36 | General Progress Note ---
Subjective - Review of Systems Service Date: 06/15/17 Subjective: Patient was seen and examined. No acute distress. afebrile. ECHO. Patient to have CT guided aspiration of left sternoclavicular aspiration on Thursday. No new changes. Objective - Results Result Diagrams: 06/13/17 05:25 06/13/17 05:25 Recent Labs: Laboratory Last Values WBC 9.9 Th/cmm (4.8-10.8) 06/13/17 05:25 RBC 3.56 Mil/cmm (3.80-5.80) L 06/13/17 05:25 Hgb 9.6 gm/dL (12-16) L 06/13/17 05:25 Hct 28.6 % (41.0-60) L 06/13/17 05:25 MCV 80.3 fl (80-99) 06/13/17 05:25 MCH 26.9 pg (27.0-31.0) L 06/13/17 05:25 MCHC Differential 33.5 pg (28.0-36.0) 06/13/17 05:25 RDW 15.2 % (11.5-20.0) 06/13/17 05:25 Plt Count 317 Th/cmm (150-400) 06/13/17 05:25 MPV 7.4 fl 06/13/17 05:25 Neutrophils % 70.4 % (40.0-80.0) 06/13/17 05:25 Lymphocytes % 19.0 % (20.0-50.0) L 06/13/17 05:25 Monocytes % 6.8 % (2.0-10.0) 06/13/17 05:25 Eosinophils % 3.4 % (0.0-5.0) 06/13/17 05:25 Basophils % 0.4 % (0.0-2.0) 06/13/17 05:25 ESR 90 mm/hr (0-20) H 06/10/17 05:50 PT 11.8 SECONDS (9.5-11.5) H 06/09/17 00:56 INR 1.12 (0.5-1.4) 06/09/17 00:56 PTT (Actin FS) 28.6 SECONDS (26.0-38.0) 06/09/17 00:56 Sodium 136 mEq/L (136-145) 06/13/17 05:25 Potassium 4.3 mEq/L (3.5-5.1) 06/13/17 05:25 Chloride 108 mEq/L (98-107) H 06/13/17 05:25 Carbon Dioxide 22.7 mEq/L (21.0-31.0) 06/13/17 05:25 Anion Gap 9.6 (7.0-16.0) 06/13/17 05:25 BUN 13 mg/dL (7-25) 06/13/17 05:25 Creatinine 0.7 mg/dL (0.7-1.3) 06/13/17 05:25 Est GFR ( Amer) TNP 06/13/17 05:25 Est GFR (Non-Af Amer) TNP 06/13/17 05:25 BUN/Creatinine Ratio 18.6 06/13/17 05:25 Glucose 164 mg/dL (70-105) H 06/13/17 05:25 POC Glucose 158 MG/DL (70 - 105) H 06/15/17 06:45 Hemoglobin A1c % 9.0 % (4.0-6.0) H 06/09/17 07:05 Whole Bld Lactic Acid 0.80 mmol/L (0.60-1.99) 06/09/17 Unknown Calcium 8.9 mg/dL (8.6-10.3) 06/13/17 05:25 Iron SEE REF.LAB REPORT 06/12/17 05:45 TIBC SEE REF. LAB REPORT 06/12/17 05:45 Iron Saturation SEE REF.LAB REPORT 06/12/17 05:45 Unsaturated IBC SEE REF.LAB REPORT 06/12/17 05:45 Ferritin SEE REF.LAB REPORT 06/12/17 05:45 Total Bilirubin 0.4 mg/dL (0.3-1.0) 06/10/17 05:50 AST 13 U/L (13-39) 06/10/17 05:50 ALT 7 U/L (7-52) 06/10/17 05:50 Alkaline Phosphatase 119 U/L (34-104) H 06/10/17 05:50 Lactate Dehydrogenase 118 U/L (140-271) L 06/10/17 05:50 C-Reactive Protein 7.9 mg/dL (0.0-0.9) H 06/09/17 07:05 Total Protein 6.9 gm/dL (6.0-8.3) 06/10/17 05:50 Albumin 3.0 gm/dL (4.2-5.5) L 06/10/17 05:50 Globulin 3.9 gm/dL 06/10/17 05:50 Albumin/Globulin Ratio 0.8 (1.0-1.8) L 06/10/17 05:50 Triglycerides 85 mg/dL (<150) 06/09/17 07:05 Cholesterol 79 mg/dL (<200) 06/09/17 07:05 LDL Cholesterol Direct 30 mg/dL (75-193) L 06/09/17 07:05 HDL Cholesterol 32 mg/dL (23-92) 06/09/17 07:05 Vitamin B12 SEE REF. LAB REPORT 06/12/17 05:45 Folic Acid SEE REF. LAB REPORT 06/12/17 05:45 TSH 0.51 uIU/ml (0.34-5.60) 06/09/17 07:05 Urine Source RANDOM 06/09/17 10:02 Urine Color YELLOW 06/09/17 10:02 Urine Clarity HAZY (CLEAR) 06/09/17 10:02 Urine pH 5.5 (4.6 - 8.0) 06/09/17 10:02 Ur Specific [place] >= 1.030 (1.005-1.030) 06/09/17 10:02 Urine Protein TRACE mg/dL (NEGATIVE) 06/09/17 10:02 Urine Glucose (UA) NEGATIVE mg/dL (NEGATIVE) 06/09/17 10:02 Urine Ketones 15 mg/dL (NEGATIVE) H 06/09/17 10:02 Urine Blood NEGATIVE (NEGATIVE) 06/09/17 10:02 Urine Nitrate NEGATIVE (NEGATIVE) 06/09/17 10:02 Urine Bilirubin SMALL (NEGATIVE) H 06/09/17 10:02 Urine Urobilinogen 0.2 E.U./dL (0.2 - 1.0) 06/09/17 10:02 Ur Leukocyte Esterase NEGATIVE (NEGATIVE) 06/09/17 10:02 Urine RBC 2-5 /hpf (0-5) H 06/09/17 10:02 Urine WBC 6-10 /hpf (0-5) 06/09/17 10:02 Ur Epithelial Cells FEW /lpf (FEW) 06/09/17 10:02 Calcium Oxalate Crystal MODERATE /hpf 06/09/17 10:02 Urine Bacteria FEW /hpf (NONE SEEN) 06/09/17 10:02 Urine Yeast FEW /hpf (NONE SEEN) H 06/09/17 10:02 Vancomycin Trough 15.5 ug/mL (5-10) H 06/12/17 20:14 Coccidioides Ab SEE REF. LAB REPORT 06/09/17 07:05 TB (QFT) Gold In Tube NEGATIVE 06/10/17 05:50 TB Test (QFT) Mitogen 6.52 06/10/17 05:50 TB Test (QFT) Antigen 0.04 06/10/17 05:50 TB Test Antigen - Nil 0.00 06/10/17 05:50 TB Test TB - Nil 0.04 06/10/17 05:50 - Physical Exam Vitals and I&O: Vital Signs Temp 98.3 F 06/15/17 04:00 Pulse 75 06/15/17 04:00 Resp 18 06/15/17 08:23 BP 97/47 06/15/17 04:00 Pulse Ox 96 06/15/17 04:00 Intake & Output 06/14/17 06/15/17 06/15/17 18:59 06:59 18:59 Intake Total 1240 Output Total 1220 Balance 20 Weight (lbs) 76.748 kg 75.024 kg Intake: Intake, IV Amount 350 Cefepime 2 gm In Dextrose 100 5% 100 ml @ 100 mls/hr IV Q12HR [facility] Rx#: [id number] Vancomycin HCl 1.25 gm In 250 Sodium Chloride 0.9% 250 ml @ 165 mls/hr IV Q18H [facility] Rx#:[id number] Oral 890 Output: Urine 1220 Other: # Bowel Movements 2 Stool Characteristics Soft Soft Weight Source Bedscale Bedscale Active Medications: Current Medications Acetaminophen/Hydrocodone Bitart ([place] 5mg/325mg) 2 tab PO Q4HR PRN PRN Reason: Pain (Severe) Stop: 08/08/17 04:35 Last Admin: 06/15/17 01:39 Dose: 2 tab Ascorbic Acid (Vitamin C) 500 mg PO DAILY [facility] Stop: 08/08/17 08:59 Last Admin: 06/14/17 08:37 Dose: 500 mg Baclofen (Lioresal) 10 mg PO TID [facility] Stop: 08/08/17 08:59 Last Admin: 06/14/17 21:55 Dose: 10 mg [place] Oil/[place] Balsam/Trypsin (Venelex) 1 appl TP DAILY [facility] Stop: 08/10/17 08:59 Last Admin: 06/14/17 08:37 Dose: 1 appl Diclofenac Sodium (Voltaren) 50 mg PO DAILY [facility] Stop: 08/10/17 08:59 Last Admin: 06/14/17 08:37 Dose: 50 mg Gabapentin (Neurontin) 300 mg PO TID [facility]ACK Stop: 08/08/17 08:59 Last Admin: 06/14/17 21:55 Dose: 300 mg Vancomycin HCl 1.25 gm/ Sodium (Chloride) 250 mls @ 165 mls/hr IV Q18H [facility] Stop: 08/08/17 20:59 Last Admin: 06/15/17 03:11 Dose: 165 mls/hr Cefepime HCl 2 gm/ Dextrose 100 mls @ 100 mls/hr IV Q12HR [facility] Stop: 08/08/17 20:59 Last Admin: 06/14/17 21:55 Dose: 100 mls/hr Insulin Aspart (Novolog Insulin Sliding Scale) 0 units SUBQ ACHS JACK PRN Reason: Protocol Stop: 08/08/17 07:29 Last Admin: 06/14/17 21:53 Dose: 4 units Insulin Detemir (Levemir Insulin) 14 units SUBQ HS JACK PRN Reason: Protocol Stop: 08/13/17 20:59 Last Admin: 06/14/17 21:53 Dose: 14 units Lactobacillus Rhamnosus (Culturelle 15b) 1 each PO DAILY [facility] Stop: 08/10/17 08:59 Last Admin: 06/14/17 08:37 Dose: 1 each Loperamide HCl (Imodium) 4 mg PO Q6H PRN PRN Reason: Diarrhea Stop: 08/08/17 20:48 Last Admin: 06/15/17 01:38 Dose: 4 mg Miscellaneous (Vancomycin Iv Per Pharmacy) 1 ea PRN PRN PRN Reason: PROTOCOL Stop: 08/08/17 04:45 Miscellaneous (Probiotic Screen) 1 ea MC PRN PRN PRN Reason: PROTOCOL Stop: 08/10/17 08:59 Multivitamins/Vitamin C (Theragran) 1 tab PO DAILY [facility] Stop: 08/08/17 08:59 Last Admin: 06/14/17 08:37 Dose: 1 tab Ondansetron HCl (Zofran) 4 mg IV Q6H PRN PRN Reason: Nausea / Vomiting Stop: 08/08/17 08:16 Pantoprazole Sodium (Protonix) 40 mg PO BIDAC [facility] Stop: 08/08/17 07:29 Last Admin: 06/15/17 06:42 Dose: 40 mg Potassium Chloride (Klor-Con) 20 meq PO BID [facility] Stop: 08/08/17 08:59 Last Admin: 06/14/17 16:26 Dose: 20 meq Sitagliptin Phosphate (Januvia) 50 mg PO DAILY [facility] Stop: 08/13/17 08:59 Last Admin: 06/14/17 08:37 Dose: 50 mg General: Alert, Oriented x3, No acute distress HEENT: Atraumatic, PERRLA, EOMI Neck: Supple Cardiovascular: Regular rate, Normal S1, Normal S2 Lungs: Clear to auscultation Abdomen: Bowel sounds, Soft Neurological: Normal gait, Normal speech Assessment/Plan - Assessment Assessment: Left lower neck swelling, symptomatic at this time. 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 Partially treated. ESR 90 and CRP 7.9. abscess and osteomyelitis of the left sternoclavicular joint and two fluid collections. For Interventional Radiology for CT or US-guided biopsy of the left sternoclavicular joint. DM type 2 ... increase Levemir to 12u HS COPD Dementia DJD GERD Diabetic left foot ulcer HTN leukocytosis right knee mass Left foot TMA Anemia - Plan Plan: MRA Chest CT Abd/pelvis Bone Scan ID consult Surgical consult Hem/Onc consult Ortho consult repeat CBC,CMP Vancomycin per pharmacy IV fluids continue home meds. PT eval continue current treatment. Nutritional Asmnt/Malnutr-PDOC - Dietary Evaluation Malnutrition Findings (Please click <Entered> for more info): Nutritional Asmnt/Malnutrition Start: 06/09/17 15: 36 Text: Status: Complete Freq: Document 06/09/17 15:36 LCHENG (Rec: 06/09/17 15:46 LCHENG [email or web address]) Nutritional Asmnt/Malnutrition Patient General Information Nutritional Screening High Risk Consult Diagnosis neck mass Pertinent Medical Hx/Surgical Hx DM, HTN, asthma/COPD, dementia , renal transplant, partial left foot amputation Subjective Information Consult received for diabetic. Pt seen sitting up in bed at time of visit, wake and alert. Pt stated not hungry today, maybe better appetite tommorrow. Pt has no preference about food, every food is ok for him. Current Diet Order/ Nutrition Support CCHO-60gm Pertinent Medications vit C, D5-0.9%ns, glucotrol, novolog, cangomycin, theragran , protonix, kcl Pertinent Labs 06/09 glucose 164-178, POC 160- 227 Nutritional Hx/Data Height 1.7 m Height (Calculated Centimeters) 170.2 Current Weight (lbs) 72.575 kg Weight (Calculated Kilograms) 72.6 Weight (Calculated Grams) 21967.8 [place] Body Weight 148 Body Mass Index (BMI) 25.0 Weight Status Overweight GI Symptoms GI Symptoms None Last BM 06/09 Difficult in: None Skin Integrity/Comment: abrasion to left arm, lump to right knee, left upper neck Estimated Nutritional Goals BEE in Kcals: Using Current wt Calories/Kcals/Kg 23-27 Kcals Calculated 4985-5887 Protein: Using Current wt Protein g/k Protein Calculated 73 Fluid: ml 1679-2336ml (1ml/kcal) Nutritional Problem 1. Problem Problem altered nutrition related labs Etiology hx of DM Signs/Symptoms: glucose 164-178, POC 160-227 Malnutrition Alert Protein-Calorie Malnutrition N/A Is there a minimum of two criteria No selected? Query Text:Check all the applicable criteria. A minimum of two criteria are recommended for diagnosis of either severe or non-severe malnutrition. Intervention/Recommendation Comments 1. Continue with CCHO-60gm diet as ordered. Encouraged oral intake and balanced meal. 2. Monitor PO intake, wt, labs and skin integrity 3. F/U as moderate risk in 3-5 days, 06/12-06/14, PO check Expected Outcomes/Goals Expected Outcomes/Goals 1. PO intake to meet at least 75% of nutritional needs. 2. Wt stability, skin to remain intact, labs to approach WNL.
[2017-06-15] MEDS: Multivitamin Tab PO SCH (09:21)
[2017-06-15] MEDS: INSULIN ASPART SLIDING SCALE 100 UNITS/ML UNIT SUBQ SCH ×4 (09:22→22:05)
[2017-06-15] MEDS: Potassium Chloride 20 mEq ER Tab PO SCH ×2 (09:22→16:37)
[2017-06-15] MEDS: Venelex 60gm Tube TP SCH (09:24)
[2017-06-15] MEDS: Lactobacillus Rhamnosus GG 15 Billion CFU CAP.SPRINK PO SCH (09:28)
--- NOTE | 2017-06-15 10:55 | Infectious Disease Prog Note ---
Infectious Disease Subjective - Review of Systems Service Date: 06/15/17 Subjective: There is no new change, no fever. Infectious Disease Objective - Results Result Diagrams: 06/13/17 05:25 06/13/17 05:25 Recent Labs: Laboratory Last Values WBC 9.9 Th/cmm (4.8-10.8) 06/13/17 05:25 RBC 3.56 Mil/cmm (3.80-5.80) L 06/13/17 05:25 Hgb 9.6 gm/dL (12-16) L 06/13/17 05:25 Hct 28.6 % (41.0-60) L 06/13/17 05:25 MCV 80.3 fl (80-99) 06/13/17 05:25 MCH 26.9 pg (27.0-31.0) L 06/13/17 05:25 MCHC Differential 33.5 pg (28.0-36.0) 06/13/17 05:25 RDW 15.2 % (11.5-20.0) 06/13/17 05:25 Plt Count 317 Th/cmm (150-400) 06/13/17 05:25 MPV 7.4 fl 06/13/17 05:25 Neutrophils % 70.4 % (40.0-80.0) 06/13/17 05:25 Lymphocytes % 19.0 % (20.0-50.0) L 06/13/17 05:25 Monocytes % 6.8 % (2.0-10.0) 06/13/17 05:25 Eosinophils % 3.4 % (0.0-5.0) 06/13/17 05:25 Basophils % 0.4 % (0.0-2.0) 06/13/17 05:25 ESR 90 mm/hr (0-20) H 06/10/17 05:50 PT 11.8 SECONDS (9.5-11.5) H 06/09/17 00:56 INR 1.12 (0.5-1.4) 06/09/17 00:56 PTT (Actin FS) 28.6 SECONDS (26.0-38.0) 06/09/17 00:56 Sodium 136 mEq/L (136-145) 06/13/17 05:25 Potassium 4.3 mEq/L (3.5-5.1) 06/13/17 05:25 Chloride 108 mEq/L (98-107) H 06/13/17 05:25 Carbon Dioxide 22.7 mEq/L (21.0-31.0) 06/13/17 05:25 Anion Gap 9.6 (7.0-16.0) 06/13/17 05:25 BUN 13 mg/dL (7-25) 06/13/17 05:25 Creatinine 0.7 mg/dL (0.7-1.3) 06/13/17 05:25 Est GFR ( Amer) TNP 06/13/17 05:25 Est GFR (Non-Af Amer) TNP 06/13/17 05:25 BUN/Creatinine Ratio 18.6 06/13/17 05:25 Glucose 164 mg/dL (70-105) H 06/13/17 05:25 POC Glucose 158 MG/DL (70 - 105) H 06/15/17 06:45 Hemoglobin A1c % 9.0 % (4.0-6.0) H 06/09/17 07:05 Whole Bld Lactic Acid 0.80 mmol/L (0.60-1.99) 06/09/17 Unknown Calcium 8.9 mg/dL (8.6-10.3) 06/13/17 05:25 Iron SEE REF.LAB REPORT 06/12/17 05:45 TIBC SEE REF. LAB REPORT 06/12/17 05:45 Iron Saturation SEE REF.LAB REPORT 06/12/17 05:45 Unsaturated IBC SEE REF.LAB REPORT 06/12/17 05:45 Ferritin SEE REF.LAB REPORT 06/12/17 05:45 Total Bilirubin 0.4 mg/dL (0.3-1.0) 06/10/17 05:50 AST 13 U/L (13-39) 06/10/17 05:50 ALT 7 U/L (7-52) 06/10/17 05:50 Alkaline Phosphatase 119 U/L (34-104) H 06/10/17 05:50 Lactate Dehydrogenase 118 U/L (140-271) L 06/10/17 05:50 C-Reactive Protein 7.9 mg/dL (0.0-0.9) H 06/09/17 07:05 Total Protein 6.9 gm/dL (6.0-8.3) 06/10/17 05:50 Albumin 3.0 gm/dL (4.2-5.5) L 06/10/17 05:50 Globulin 3.9 gm/dL 06/10/17 05:50 Albumin/Globulin Ratio 0.8 (1.0-1.8) L 06/10/17 05:50 Triglycerides 85 mg/dL (<150) 06/09/17 07:05 Cholesterol 79 mg/dL (<200) 06/09/17 07:05 LDL Cholesterol Direct 30 mg/dL (75-193) L 06/09/17 07:05 HDL Cholesterol 32 mg/dL (23-92) 06/09/17 07:05 Vitamin B12 SEE REF. LAB REPORT 06/12/17 05:45 Folic Acid SEE REF. LAB REPORT 06/12/17 05:45 TSH 0.51 uIU/ml (0.34-5.60) 06/09/17 07:05 Urine Source RANDOM 06/09/17 10:02 Urine Color YELLOW 06/09/17 10:02 Urine Clarity HAZY (CLEAR) 06/09/17 10:02 Urine pH 5.5 (4.6 - 8.0) 06/09/17 10:02 Ur Specific [place] >= 1.030 (1.005-1.030) 06/09/17 10:02 Urine Protein TRACE mg/dL (NEGATIVE) 06/09/17 10:02 Urine Glucose (UA) NEGATIVE mg/dL (NEGATIVE) 06/09/17 10:02 Urine Ketones 15 mg/dL (NEGATIVE) H 06/09/17 10:02 Urine Blood NEGATIVE (NEGATIVE) 06/09/17 10:02 Urine Nitrate NEGATIVE (NEGATIVE) 06/09/17 10:02 Urine Bilirubin SMALL (NEGATIVE) H 06/09/17 10:02 Urine Urobilinogen 0.2 E.U./dL (0.2 - 1.0) 06/09/17 10:02 Ur Leukocyte Esterase NEGATIVE (NEGATIVE) 06/09/17 10:02 Urine RBC 2-5 /hpf (0-5) H 06/09/17 10:02 Urine WBC 6-10 /hpf (0-5) 06/09/17 10:02 Ur Epithelial Cells FEW /lpf (FEW) 06/09/17 10:02 Calcium Oxalate Crystal MODERATE /hpf 06/09/17 10:02 Urine Bacteria FEW /hpf (NONE SEEN) 06/09/17 10:02 Urine Yeast FEW /hpf (NONE SEEN) H 06/09/17 10:02 Vancomycin Trough 15.5 ug/mL (5-10) H 06/12/17 20:14 Coccidioides Ab SEE REF. LAB REPORT 06/09/17 07:05 TB (QFT) Gold In Tube NEGATIVE 06/10/17 05:50 TB Test (QFT) Mitogen 6.52 06/10/17 05:50 TB Test (QFT) Antigen 0.04 06/10/17 05:50 TB Test Antigen - Nil 0.00 06/10/17 05:50 TB Test TB - Nil 0.04 06/10/17 05:50 - Physical Exam Vitals and I&O: Vital Signs Temp 97.6 F 06/15/17 08:00 Pulse 78 06/15/17 09:21 Resp 18 06/15/17 08:23 BP 107/53 06/15/17 08:00 Pulse Ox 97 06/15/17 08:00 Intake & Output 06/14/17 06/15/17 06/15/17 18:59 06:59 18:59 Intake Total 1240 100 Output Total 1220 Balance 20 100 Weight (lbs) 76.748 kg 75.024 kg Intake: Intake, IV Amount 350 100 Cefepime 2 gm In Dextrose 100 100 5% 100 ml @ 100 mls/hr IV Q12HR [facility] Rx#: [id number] Vancomycin HCl 1.25 gm In 250 Sodium Chloride 0.9% 250 ml @ 165 mls/hr IV Q18H [facility] Rx#:[id number] Oral 890 Output: Urine 1220 Other: # Bowel Movements 2 Stool Characteristics Soft Soft Weight Source Bedscale Bedscale Active Medications: Current Medications Acetaminophen/Hydrocodone Bitart ([place] 5mg/325mg) 2 tab PO Q4HR PRN PRN Reason: Pain (Severe) Stop: 08/08/17 04:35 Last Admin: 06/15/17 01:39 Dose: 2 tab Ascorbic Acid (Vitamin C) 500 mg PO DAILY [facility] Stop: 08/08/17 08:59 Last Admin: 06/15/17 09:22 Dose: 500 mg Baclofen (Lioresal) 10 mg PO TID [facility] Stop: 08/08/17 08:59 Last Admin: 06/15/17 09:22 Dose: 10 mg [place] Oil/[place] Balsam/Trypsin (Venelex) 1 appl TP DAILY [facility] Stop: 08/10/17 08:59 Last Admin: 06/15/17 09:24 Dose: 1 appl Diclofenac Sodium (Voltaren) 50 mg PO DAILY [facility] Stop: 08/10/17 08:59 Last Admin: 06/15/17 09:22 Dose: 50 mg Gabapentin (Neurontin) 300 mg PO TID [facility] Stop: 08/08/17 08:59 Last Admin: 06/15/17 09:22 Dose: 300 mg Vancomycin HCl 1.25 gm/ Sodium (Chloride) 250 mls @ 165 mls/hr IV Q18H [facility] Stop: 08/08/17 20:59 Last Admin: 06/15/17 03:11 Dose: 165 mls/hr Cefepime HCl 2 gm/ Dextrose 100 mls @ 100 mls/hr IV Q12HR [facility] Stop: 08/08/17 20:59 Last Admin: 06/15/17 09:27 Dose: 100 mls/hr Insulin Aspart (Novolog Insulin Sliding Scale) 0 units SUBQ ACHS JACK PRN Reason: Protocol Stop: 08/08/17 07:29 Last Admin: 06/15/17 09:22 Dose: 2 units Insulin Detemir (Levemir Insulin) 14 units SUBQ HS [facility]ACK PRN Reason: Protocol Stop: 08/13/17 20:59 Last Admin: 06/14/17 21:53 Dose: 14 units Lactobacillus Rhamnosus (Culturelle 15b) 1 each PO DAILY [facility] Stop: 08/10/17 08:59 Last Admin: 06/15/17 09:28 Dose: 1 each Loperamide HCl (Imodium) 4 mg PO Q6H PRN PRN Reason: Diarrhea Stop: 08/08/17 20:48 Last Admin: 06/15/17 01:38 Dose: 4 mg Miscellaneous (Vancomycin Iv Per Pharmacy) 1 ea [facility] PRN PRN PRN Reason: PROTOCOL Stop: 08/08/17 04:45 Miscellaneous (Probiotic Screen) 1 ea MC PRN PRN PRN Reason: PROTOCOL Stop: 08/10/17 08:59 Multivitamins/Vitamin C (Theragran) 1 tab PO DAILY [facility] Stop: 08/08/17 08:59 Last Admin: 06/15/17 09:21 Dose: 1 tab Ondansetron HCl (Zofran) 4 mg IV Q6H PRN PRN Reason: Nausea / Vomiting Stop: 08/08/17 08:16 Pantoprazole Sodium (Protonix) 40 mg PO BIDAC [facility] Stop: 08/08/17 07:29 Last Admin: 06/15/17 06:42 Dose: 40 mg Potassium Chloride (Klor-Con) 20 meq PO BID [facility] Stop: 08/08/17 08:59 Last Admin: 06/15/17 09:22 Dose: 20 meq Sitagliptin Phosphate (Januvia) 50 mg PO DAILY [facility] Stop: 08/13/17 08:59 Last Admin: 06/15/17 09:22 Dose: 50 mg General: no acute distress, well developed, well nourished HEENT: atraumatic, normocephalic, PERRLA, EOMI, moist mucous membrane Neck: supple, no thyromegaly Cardiovascular: S1S2, regular Lungs: clear to auscultation bilaterally, clear to percussion Abdomen: soft, no tender, no distended Extremities: no cyanosis, no clubbing, no edema Neurological: awake, alert, oriented Skin: intact Infectious Disease Assmt/Plan - Assessment Assessment: 1. Left lower neck swelling, symptomatic at this time. 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 Partially treated. ESR 90 and CRP 7.9. MRI report was reviewed. abscess and osteomyelitis of the left sternoclavicular joint and two fluid collections. 2. Diabetes mellitus type 2. 3. Hypertension. 4. COPD. 5. Dementia. 6. DJD. 7. GERD. 8. Diabetic ulcer of left foot. 9. Left foot TMA. 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 In absence of definite diagnosis, I am unable to provide appropriate treatment plan. meanwhile, follow up on serologies fo cocci and TB Gold quantiferon. Will need percutaneous drainage of fluid and bone biopsy to reach final diagnosis. may need ortho eval. ? debridement of the left sternoclavicular joint. If percutaneous drainage of the fluid collection or bone biopsy performed, please send the following tests. Fluid: Cell count and differential/ gram stain and culture/susceptibility. AFB smear and cultures. Fungal smear and cultures. Cytology. Nutritional Asmnt/Malnutr-PDOC - Dietary Evaluation Malnutrition Findings (Please click <Entered> for more info): Nutritional Asmnt/Malnutrition Start: 06/09/17 15: 36 Text: Status: Complete Freq: Document 06/09/17 15:36 [facility] (Rec: 06/09/17 15:46 HEN [email or web address]) Nutritional Asmnt/Malnutrition Patient General Information Nutritional Screening High Risk Consult Diagnosis neck mass Pertinent Medical Hx/Surgical Hx DM, HTN, asthma/COPD, dementia , renal transplant, partial left foot amputation Subjective Information Consult received for diabetic. Pt seen sitting up in bed at time of visit, wake and alert. Pt stated not hungry today, maybe better appetite tommorrow. Pt has no preference about food, every food is ok for him. Current Diet Order/ Nutrition Support CCHO-60gm Pertinent Medications vit C, D5-0.9%ns, glucotrol, novolog, cangomycin, theragran , protonix, kcl Pertinent Labs 06/09 glucose 164-178, POC 160- 227 Nutritional Hx/Data Height 1.7 m Height (Calculated Centimeters) 170.2 Current Weight (lbs) 72.575 kg Weight (Calculated Kilograms) 72.6 Weight (Calculated Grams) 04639.8 [place] Body Weight 148 Body Mass Index (BMI) 25.0 Weight Status Overweight GI Symptoms GI Symptoms None Last BM 06/09 Difficult in: None Skin Integrity/Comment: abrasion to left arm, lump to right knee, left upper neck Estimated Nutritional Goals BEE in Kcals: Using Current wt Calories/Kcals/Kg 23-27 Kcals Calculated 2540-6073 Protein: Using Current wt Protein g/k Protein Calculated 73 Fluid: ml 1679-2336ml (1ml/kcal) Nutritional Problem 1. Problem Problem altered nutrition related labs Etiology hx of DM Signs/Symptoms: glucose 164-178, POC 160-227 Malnutrition Alert Protein-Calorie Malnutrition N/A Is there a minimum of two criteria No selected? Query Text:Check all the applicable criteria. A minimum of two criteria are recommended for diagnosis of either severe or non-severe malnutrition. Intervention/Recommendation Comments 1. Continue with [facility]-60gm diet as ordered. Encouraged oral intake and balanced meal. 2. Monitor PO intake, wt, labs and skin integrity 3. F/U as moderate risk in 3-5 days, 06/12-06/14, PO check Expected Outcomes/Goals Expected Outcomes/Goals 1. PO intake to meet at least 75% of nutritional needs. 2. Wt stability, skin to remain intact, labs to approach WNL.
[2017-06-15] MEDS: Insulin Detemir 100 units/mL 10mL Vial SUBQ SCH (21:26)
--- NOTE | 2017-06-16 02:23 | Progress Notes ---
DATE: 06/15/[address] Robison. Case was discussed with staff of the patient, reviewed records. The patient continues to complain of pain and that make him somewhat anxious; however, he denies any current intent to harm himself or anybody. He denies any auditory or visual hallucination or paranoia. He denies having any side effects. So, the patient will continue to do the same. I think his symptoms will improve as his pain in the neck go away. Thank you very much for allowing me to participate in the care of this most interesting gentleman. JOB# [id number]
[2017-06-16] MEDS ORDERED: D5-0.45NS 1,000 ML IV SCH (04:04)
[2017-06-16] MEDS: Hydrocodone/APAP 5mg/325mg Tab PO PRN ×3 (04:21→17:08)
[2017-06-16] MEDS: Pantoprazole 40 mg EC Tab PO SCH ×2 (07:42→16:47)
[2017-06-16 07:55] LABS: % BASOPHILS 0.3 % (0.0-2.0); % EOSINOPHILS 1.8 % (0.0-5.0); % LYMPHOCYTES 13.1 % (20.0-50.0); % MONOCYTES 7.5 % (2.0-10.0); % NEUTROPHILS 77.3 % (40.0-80.0); EOSINOPHILE ABSOLUTE 0.2 Th/cmm (0.1-0.4); HEMATOCRIT 29.9 % (41.0-60); LYMPHOCYTE ABSOLUTE 1.5 Th/cmm (1.5-3.0); MEAN CELL VOLUME 80.7 fl (80-99); MEAN CORPUSCULAR HEMOGLOBIN 26.9 pg (27.0-31.0); MEAN CORPUSCULAR HGB CONC 33.3 pg (28.0-36.0); MEAN PLATELET VOLUME 7.9 fl; MONOCYTE ABSOLUTE 0.9 Th/cmm (0.3-1.0); NEUTROPHILE ABSOLUTE 9.1 Th/cmm (1.8-8.0); PLATELET COUNT 331 Th/cmm (150-400); RED CELL DISTRIBUTION WIDTH 15.8 % (11.5-20.0); WHITE BLOOD COUNT 11.7 Th/cmm (4.8-10.8)
[2017-06-16 08:14] LABS: CREATININE - SERUM 0.9 mg/dL (0.7-1.3)
--- NOTE | 2017-06-16 08:29 | General Progress Note ---
Subjective - Review of Systems Service Date: 06/16/17 Subjective: Patient was seen and examined. No acute distress. afebrile. Patient to have US- guided aspiration of left sternoclavicular aspiration on Thursday. No new changes. Continue IV antibiotics per ID. Awaiting serologies. TB Gold Quantiferon Objective - Results Result Diagrams: 06/16/17 07:30 06/16/17 07:30 Recent Labs: Laboratory Last Values WBC 11.7 Th/cmm (4.8-10.8) H 06/16/17 07:30 RBC 3.70 Mil/cmm (3.80-5.80) L 06/16/17 07:30 Hgb 10.0 gm/dL (12-16) L 06/16/17 07:30 Hct 29.9 % (41.0-60) L 06/16/17 07:30 MCV 80.7 fl (80-99) 06/16/17 07:30 MCH 26.9 pg (27.0-31.0) L 06/16/17 07:30 MCHC Differential 33.3 pg (28.0-36.0) 06/16/17 07:30 RDW 15.8 % (11.5-20.0) 06/16/17 07:30 Plt Count 331 Th/cmm (150-400) 06/16/17 07:30 MPV 7.9 fl 06/16/17 07:30 Neutrophils % 77.3 % (40.0-80.0) 06/16/17 07:30 Lymphocytes % 13.1 % (20.0-50.0) L 06/16/17 07:30 Monocytes % 7.5 % (2.0-10.0) 06/16/17 07:30 Eosinophils % 1.8 % (0.0-5.0) 06/16/17 07:30 Basophils % 0.3 % (0.0-2.0) 06/16/17 07:30 ESR 90 mm/hr (0-20) H 06/10/17 05:50 PT 11.8 SECONDS (9.5-11.5) H 06/09/17 00:56 INR 1.12 (0.5-1.4) 06/09/17 00:56 PTT (Actin FS) 28.6 SECONDS (26.0-38.0) 06/09/17 00:56 Sodium 136 mEq/L (136-145) 06/13/17 05:25 Potassium 4.3 mEq/L (3.5-5.1) 06/13/17 05:25 Chloride 108 mEq/L (98-107) H 06/13/17 05:25 Carbon Dioxide 22.7 mEq/L (21.0-31.0) 06/13/17 05:25 Anion Gap 9.6 (7.0-16.0) 06/13/17 05:25 BUN 12 mg/dL (7-25) 06/16/17 07:30 Creatinine 0.9 mg/dL (0.7-1.3) 06/16/17 07:30 Est GFR ( Amer) TNP 06/13/17 05:25 Est GFR (Non-Af Amer) TNP 06/13/17 05:25 BUN/Creatinine Ratio 18.6 06/13/17 05:25 Glucose 164 mg/dL (70-105) H 06/13/17 05:25 POC Glucose 157 MG/DL (70 - 105) H 06/16/17 06:28 Hemoglobin A1c % 9.0 % (4.0-6.0) H 06/09/17 07:05 Whole Bld Lactic Acid 0.80 mmol/L (0.60-1.99) 06/09/17 Unknown Calcium 8.9 mg/dL (8.6-10.3) 06/13/17 05:25 Iron SEE REF.LAB REPORT 06/12/17 05:45 TIBC SEE REF. LAB REPORT 06/12/17 05:45 Iron Saturation SEE REF.LAB REPORT 06/12/17 05:45 Unsaturated IBC SEE REF.LAB REPORT 06/12/17 05:45 Ferritin SEE REF.LAB REPORT 06/12/17 05:45 Total Bilirubin 0.4 mg/dL (0.3-1.0) 06/10/17 05:50 AST 13 U/L (13-39) 06/10/17 05:50 ALT 7 U/L (7-52) 06/10/17 05:50 Alkaline Phosphatase 119 U/L (34-104) H 06/10/17 05:50 Lactate Dehydrogenase 118 U/L (140-271) L 06/10/17 05:50 C-Reactive Protein 7.9 mg/dL (0.0-0.9) H 06/09/17 07:05 Total Protein 6.9 gm/dL (6.0-8.3) 06/10/17 05:50 Albumin 3.0 gm/dL (4.2-5.5) L 06/10/17 05:50 Globulin 3.9 gm/dL 06/10/17 05:50 Albumin/Globulin Ratio 0.8 (1.0-1.8) L 06/10/17 05:50 Triglycerides 85 mg/dL (<150) 06/09/17 07:05 Cholesterol 79 mg/dL (<200) 06/09/17 07:05 LDL Cholesterol Direct 30 mg/dL (75-193) L 06/09/17 07:05 HDL Cholesterol 32 mg/dL (23-92) 06/09/17 07:05 Vitamin B12 SEE REF. LAB REPORT 06/12/17 05:45 Folic Acid SEE REF. LAB REPORT 06/12/17 05:45 TSH 0.51 uIU/ml (0.34-5.60) 06/09/17 07:05 Urine Source RANDOM 06/09/17 10:02 Urine Color YELLOW 06/09/17 10:02 Urine Clarity HAZY (CLEAR) 06/09/17 10:02 Urine pH 5.5 (4.6 - 8.0) 06/09/17 10:02 Ur Specific [place] >= 1.030 (1.005-1.030) 06/09/17 10:02 Urine Protein TRACE mg/dL (NEGATIVE) 06/09/17 10:02 Urine Glucose (UA) NEGATIVE mg/dL (NEGATIVE) 06/09/17 10:02 Urine Ketones 15 mg/dL (NEGATIVE) H 06/09/17 10:02 Urine Blood NEGATIVE (NEGATIVE) 06/09/17 10:02 Urine Nitrate NEGATIVE (NEGATIVE) 06/09/17 10:02 Urine Bilirubin SMALL (NEGATIVE) H 06/09/17 10:02 Urine Urobilinogen 0.2 E.U./dL (0.2 - 1.0) 06/09/17 10:02 Ur Leukocyte Esterase NEGATIVE (NEGATIVE) 06/09/17 10:02 Urine RBC 2-5 /hpf (0-5) H 06/09/17 10:02 Urine WBC 6-10 /hpf (0-5) 06/09/17 10:02 Ur Epithelial Cells FEW /lpf (FEW) 06/09/17 10:02 Calcium Oxalate Crystal MODERATE /hpf 06/09/17 10:02 Urine Bacteria FEW /hpf (NONE SEEN) 06/09/17 10:02 Urine Yeast FEW /hpf (NONE SEEN) H 06/09/17 10:02 Stool Leukocyte MODERATE WBC SEEN 06/16/17 04:15 Vancomycin Trough 15.5 ug/mL (5-10) H 06/12/17 20:14 Coccidioides Ab SEE REF. LAB REPORT 06/09/17 07:05 TB (QFT) Gold In Tube NEGATIVE 06/10/17 05:50 TB Test (QFT) Mitogen 6.52 06/10/17 05:50 TB Test (QFT) Antigen 0.04 06/10/17 05:50 TB Test Antigen - Nil 0.00 06/10/17 05:50 TB Test TB - Nil 0.04 06/10/17 05:50 - Physical Exam Vitals and I&O: Vital Signs Temp 98.1 F 06/16/17 08:00 Pulse 74 06/16/17 08:00 Resp 16 06/16/17 08:00 BP 101/55 06/16/17 08:00 Pulse Ox 97 06/16/17 08:00 Intake & Output 06/15/17 06/16/17 06/16/17 18:59 06:59 18:59 Intake Total 900 1050 Output Total 1 Balance 900 1049 Weight (lbs) 75.024 kg 74.843 kg Intake: Intake, IV Amount 100 350 Cefepime 2 gm In Dextrose 100 100 5% 100 ml @ 100 mls/hr IV Q12HR [facility] Rx#: [id number] Vancomycin HCl 1.25 gm In 250 Sodium Chloride 0.9% 250 ml @ 165 mls/hr IV Q18H [facility] Rx#:[id number] Oral 800 700 Output: Urine 1 Other: # Voids 3 # Bowel Movements 1 3 Weight Source Bedscale Bedscale Active Medications: Current Medications Acetaminophen/Hydrocodone Bitart ([place] 5mg/325mg) 2 tab PO Q4HR PRN PRN Reason: Pain (Severe) Stop: 08/08/17 04:35 Last Admin: 06/16/17 04:37 Dose: 2 tab Ascorbic Acid (Vitamin C) 500 mg PO DAILY [facility] Stop: 08/08/17 08:59 Last Admin: 06/15/17 09:22 Dose: 500 mg Baclofen (Lioresal) 10 mg PO TID JACK Stop: 08/08/17 08:59 Last Admin: 06/15/17 21:42 Dose: 10 mg [place] Oil/[place] Balsam/Trypsin (Venelex) 1 appl TP DAILY [facility] Stop: 08/10/17 08:59 Last Admin: 06/15/17 09:24 Dose: 1 appl Diclofenac Sodium (Voltaren) 50 mg PO DAILY [facility] Stop: 08/10/17 08:59 Last Admin: 06/15/17 09:22 Dose: 50 mg Gabapentin (Neurontin) 300 mg PO TID JACK Stop: 08/08/17 08:59 Last Admin: 06/15/17 21:42 Dose: 300 mg Vancomycin HCl 1.25 gm/ Sodium (Chloride) 250 mls @ 165 mls/hr IV Q18H [facility] Stop: 08/08/17 20:59 Last Infusion: 06/15/17 23:13 Dose: Infused Cefepime HCl 2 gm/ Dextrose 100 mls @ 100 mls/hr IV Q12HR [facility] Stop: 08/08/17 20:59 Last Infusion: 06/15/17 22:30 Dose: Infused Dextrose/Sodium Chloride (D5-0.45ns) 1,000 mls @ 50 mls/hr IV .Q20H [facility] Stop: 08/15/17 04:03 Last Admin: 06/16/17 04:16 Dose: 50 mls/hr Insulin Aspart (Novolog Insulin Sliding Scale) 0 units SUBQ ACHS JACK PRN Reason: Protocol Stop: 08/08/17 07:29 Last Admin: 06/15/17 22:05 Dose: 2 units Insulin Detemir (Levemir Insulin) 14 units SUBQ HS [facility]ACK PRN Reason: Protocol Stop: 08/13/17 20:59 Last Admin: 06/15/17 21:26 Dose: 14 units Lactobacillus Rhamnosus (Culturelle 15b) 1 each PO DAILY [facility] Stop: 08/10/17 08:59 Last Admin: 06/15/17 09:28 Dose: 1 each Loperamide HCl (Imodium) 4 mg PO Q6H PRN PRN Reason: Diarrhea Stop: 08/08/17 20:48 Last Admin: 06/16/17 04:22 Dose: 4 mg Miscellaneous (Vancomycin Iv Per Pharmacy) 1 ea PRN PRN PRN Reason: PROTOCOL Stop: 08/08/17 04:45 Miscellaneous (Probiotic Screen) 1 ea PRN PRN PRN Reason: PROTOCOL Stop: 08/10/17 08:59 Multivitamins/Vitamin C (Theragran) 1 tab PO DAILY [facility] Stop: 08/08/17 08:59 Last Admin: 06/15/17 09:21 Dose: 1 tab Ondansetron HCl (Zofran) 4 mg IV Q6H PRN PRN Reason: Nausea / Vomiting Stop: 08/08/17 08:16 Pantoprazole Sodium (Protonix) 40 mg PO BIDAC JACK Stop: 08/08/17 07:29 Last Admin: 06/16/17 07:42 Dose: 40 mg Potassium Chloride (Klor-Con) 20 meq PO BID JACK Stop: 08/08/17 08:59 Last Admin: 06/15/17 16:37 Dose: 20 meq Sitagliptin Phosphate (Januvia) 50 mg PO DAILY [facility]ACK Stop: 08/13/17 08:59 Last Admin: 06/15/17 09:22 Dose: 50 mg General: Alert, Oriented x3, No acute distress HEENT: Atraumatic, PERRLA, EOMI Neck: Supple Cardiovascular: Regular rate, Normal S1, Normal S2 Lungs: Clear to auscultation Abdomen: Bowel sounds, Soft Neurological: Normal gait, Normal speech Assessment/Plan - Assessment Assessment: Left lower neck swelling, symptomatic at this time. 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 Partially treated. ESR 90 and CRP 7.9. abscess and osteomyelitis of the left sternoclavicular joint and two fluid collections. For Interventional Radiology for CT or US-guided biopsy of the left sternoclavicular joint. DM type 2 ... increase Levemir to 12u HS + Januvia 50mg PO daily COPD Dementia DJD GERD Diabetic left foot ulcer HTN leukocytosis right knee mass Left foot TMA Anemia - Plan Plan: MRA Chest CT Abd/pelvis Bone Scan ID consult Surgical consult Hem/Onc consult Ortho consult repeat CBC,CMP Vancomycin per pharmacy IV fluids continue home meds. PT eval continue current treatment. Nutritional Asmnt/Malnutr-PDOC - Dietary Evaluation Malnutrition Findings (Please click <Entered> for more info): Nutritional Asmnt/Malnutrition Start: 06/09/17 15: 36 Text: Status: Complete Freq: Document 06/09/17 15:36 [email or web address] (Rec: 06/09/17 15:46 [email or web address]) Nutritional Asmnt/Malnutrition Patient General Information Nutritional Screening High Risk Consult Diagnosis neck mass Pertinent Medical Hx/Surgical Hx DM, HTN, asthma/COPD, dementia , renal transplant, partial left foot amputation Subjective Information Consult received for diabetic. Pt seen sitting up in bed at time of visit, wake and alert. Pt stated not hungry today, maybe better appetite tommorrow. Pt has no preference about food, every food is ok for him. Current Diet Order/ Nutrition Support CCHO-60gm Pertinent Medications vit C, D5-0.9%ns, glucotrol, novolog, cangomycin, theragran , protonix, kcl Pertinent Labs 06/09 glucose 164-178, POC 160- 227 Nutritional Hx/Data Height 1.7 m Height (Calculated Centimeters) 170.2 Current Weight (lbs) 72.575 kg Weight (Calculated Kilograms) 72.6 Weight (Calculated Grams) 42604.8 [place] Body Weight 148 Body Mass Index (BMI) 25.0 Weight Status Overweight GI Symptoms GI Symptoms None Last BM 06/09 Difficult in: None Skin Integrity/Comment: abrasion to left arm, lump to right knee, left upper neck Estimated Nutritional Goals BEE in Kcals: Using Current wt Calories/Kcals/Kg 23-27 Kcals Calculated 0196-7271 Protein: Using Current wt Protein g/k Protein Calculated 73 Fluid: ml 1679-2336ml (1ml/kcal) Nutritional Problem 1. Problem Problem altered nutrition related labs Etiology hx of DM Signs/Symptoms: glucose 164-178, POC 160-227 Malnutrition Alert Protein-Calorie Malnutrition N/A Is there a minimum of two criteria No selected? Query Text:Check all the applicable criteria. A minimum of two criteria are recommended for diagnosis of either severe or non-severe malnutrition. Intervention/Recommendation Comments 1. Continue with CCHO-60gm diet as ordered. Encouraged oral intake and balanced meal. 2. Monitor PO intake, wt, labs and skin integrity 3. F/U as moderate risk in 3-5 days, 06/12-06/14, PO check Expected Outcomes/Goals Expected Outcomes/Goals 1. PO intake to meet at least 75% of nutritional needs. 2. Wt stability, skin to remain intact, labs to approach WNL.
[2017-06-16] MEDS: Lactobacillus Rhamnosus GG 15 Billion CFU CAP.SPRINK PO SCH (08:42)
[2017-06-16] MEDS: Multivitamin Tab PO SCH (08:42)
[2017-06-16] MEDS: Potassium Chloride 20 mEq ER Tab PO SCH ×2 (08:42→16:47)
[2017-06-16] MEDS: INSULIN ASPART SLIDING SCALE 100 UNITS/ML UNIT SUBQ SCH ×4 (08:43→21:07)
[2017-06-16] MEDS: Venelex 60gm Tube TP SCH (08:43)
--- NOTE | 2017-06-16 09:50 | Infectious Disease Prog Note ---
Infectious Disease Subjective - Review of Systems Service Date: 06/16/17 Subjective: There is no new change, no fever. Infectious Disease Objective - Results Result Diagrams: 06/16/17 07:30 06/16/17 07:30 Recent Labs: Laboratory Last Values WBC 11.7 Th/cmm (4.8-10.8) H 06/16/17 07:30 RBC 3.70 Mil/cmm (3.80-5.80) L 06/16/17 07:30 Hgb 10.0 gm/dL (12-16) L 06/16/17 07:30 Hct 29.9 % (41.0-60) L 06/16/17 07:30 MCV 80.7 fl (80-99) 06/16/17 07:30 MCH 26.9 pg (27.0-31.0) L 06/16/17 07:30 MCHC Differential 33.3 pg (28.0-36.0) 06/16/17 07:30 RDW 15.8 % (11.5-20.0) 06/16/17 07:30 Plt Count 331 Th/cmm (150-400) 06/16/17 07:30 MPV 7.9 fl 06/16/17 07:30 Neutrophils % 77.3 % (40.0-80.0) 06/16/17 07:30 Lymphocytes % 13.1 % (20.0-50.0) L 06/16/17 07:30 Monocytes % 7.5 % (2.0-10.0) 06/16/17 07:30 Eosinophils % 1.8 % (0.0-5.0) 06/16/17 07:30 Basophils % 0.3 % (0.0-2.0) 06/16/17 07:30 ESR 90 mm/hr (0-20) H 06/10/17 05:50 PT 11.8 SECONDS (9.5-11.5) H 06/09/17 00:56 INR 1.12 (0.5-1.4) 06/09/17 00:56 PTT (Actin FS) 28.6 SECONDS (26.0-38.0) 06/09/17 00:56 Sodium 136 mEq/L (136-145) 06/13/17 05:25 Potassium 4.3 mEq/L (3.5-5.1) 06/13/17 05:25 Chloride 108 mEq/L (98-107) H 06/13/17 05:25 Carbon Dioxide 22.7 mEq/L (21.0-31.0) 06/13/17 05:25 Anion Gap 9.6 (7.0-16.0) 06/13/17 05:25 BUN 12 mg/dL (7-25) 06/16/17 07:30 Creatinine 0.9 mg/dL (0.7-1.3) 06/16/17 07:30 Est GFR ( Amer) TNP 06/13/17 05:25 Est GFR (Non-Af Amer) TNP 06/13/17 05:25 BUN/Creatinine Ratio 18.6 06/13/17 05:25 Glucose 164 mg/dL (70-105) H 06/13/17 05:25 POC Glucose 157 MG/DL (70 - 105) H 06/16/17 06:28 Hemoglobin A1c % 9.0 % (4.0-6.0) H 06/09/17 07:05 Whole Bld Lactic Acid 0.80 mmol/L (0.60-1.99) 06/09/17 Unknown Calcium 8.9 mg/dL (8.6-10.3) 06/13/17 05:25 Iron SEE REF.LAB REPORT 06/12/17 05:45 TIBC SEE REF. LAB REPORT 06/12/17 05:45 Iron Saturation SEE REF.LAB REPORT 06/12/17 05:45 Unsaturated IBC SEE REF.LAB REPORT 06/12/17 05:45 Ferritin SEE REF.LAB REPORT 06/12/17 05:45 Total Bilirubin 0.4 mg/dL (0.3-1.0) 06/10/17 05:50 AST 13 U/L (13-39) 06/10/17 05:50 ALT 7 U/L (7-52) 06/10/17 05:50 Alkaline Phosphatase 119 U/L (34-104) H 06/10/17 05:50 Lactate Dehydrogenase 118 U/L (140-271) L 06/10/17 05:50 C-Reactive Protein 7.9 mg/dL (0.0-0.9) H 06/09/17 07:05 Total Protein 6.9 gm/dL (6.0-8.3) 06/10/17 05:50 Albumin 3.0 gm/dL (4.2-5.5) L 06/10/17 05:50 Globulin 3.9 gm/dL 06/10/17 05:50 Albumin/Globulin Ratio 0.8 (1.0-1.8) L 06/10/17 05:50 Triglycerides 85 mg/dL (<150) 06/09/17 07:05 Cholesterol 79 mg/dL (<200) 06/09/17 07:05 LDL Cholesterol Direct 30 mg/dL (75-193) L 06/09/17 07:05 HDL Cholesterol 32 mg/dL (23-92) 06/09/17 07:05 Vitamin B12 SEE REF. LAB REPORT 06/12/17 05:45 Folic Acid SEE REF. LAB REPORT 06/12/17 05:45 TSH 0.51 uIU/ml (0.34-5.60) 06/09/17 07:05 Urine Source RANDOM 06/09/17 10:02 Urine Color YELLOW 06/09/17 10:02 Urine Clarity HAZY (CLEAR) 06/09/17 10:02 Urine pH 5.5 (4.6 - 8.0) 06/09/17 10:02 Ur Specific [place] >= 1.030 (1.005-1.030) 06/09/17 10:02 Urine Protein TRACE mg/dL (NEGATIVE) 06/09/17 10:02 Urine Glucose (UA) NEGATIVE mg/dL (NEGATIVE) 06/09/17 10:02 Urine Ketones 15 mg/dL (NEGATIVE) H 06/09/17 10:02 Urine Blood NEGATIVE (NEGATIVE) 06/09/17 10:02 Urine Nitrate NEGATIVE (NEGATIVE) 06/09/17 10:02 Urine Bilirubin SMALL (NEGATIVE) H 06/09/17 10:02 Urine Urobilinogen 0.2 E.U./dL (0.2 - 1.0) 06/09/17 10:02 Ur Leukocyte Esterase NEGATIVE (NEGATIVE) 06/09/17 10:02 Urine RBC 2-5 /hpf (0-5) H 06/09/17 10:02 Urine WBC 6-10 /hpf (0-5) 06/09/17 10:02 Ur Epithelial Cells FEW /lpf (FEW) 06/09/17 10:02 Calcium Oxalate Crystal MODERATE /hpf 06/09/17 10:02 Urine Bacteria FEW /hpf (NONE SEEN) 06/09/17 10:02 Urine Yeast FEW /hpf (NONE SEEN) H 06/09/17 10:02 Stool Leukocyte MODERATE WBC SEEN 06/16/17 04:15 Vancomycin Trough 15.5 ug/mL (5-10) H 06/12/17 20:14 Coccidioides Ab SEE REF. LAB REPORT 06/09/17 07:05 TB (QFT) Gold In Tube NEGATIVE 06/10/17 05:50 TB Test (QFT) Mitogen 6.52 06/10/17 05:50 TB Test (QFT) Antigen 0.04 06/10/17 05:50 TB Test Antigen - Nil 0.00 06/10/17 05:50 TB Test TB - Nil 0.04 06/10/17 05:50 - Physical Exam Vitals and I&O: Vital Signs Temp 98.1 F 06/16/17 08:00 Pulse 74 06/16/17 08:00 Resp 16 06/16/17 08:00 BP 101/55 06/16/17 08:00 Pulse Ox 97 06/16/17 08:00 Intake & Output 06/15/17 06/16/17 06/16/17 18:59 06:59 18:59 Intake Total 900 1050 Output Total 1 Balance 900 1049 Weight (lbs) 75.024 kg 74.843 kg Intake: Intake, IV Amount 100 350 Cefepime 2 gm In Dextrose 100 100 5% 100 ml @ 100 mls/hr IV Q12HR [facility] Rx#: [id number] Vancomycin HCl 1.25 gm In 250 Sodium Chloride 0.9% 250 ml @ 165 mls/hr IV Q18H [facility] Rx#:[id number] Oral 800 700 Output: Urine 1 Other: # Voids 3 # Bowel Movements 1 3 Weight Source Bedscale Bedscale Active Medications: Current Medications Acetaminophen/Hydrocodone Bitart ([place] 5mg/325mg) 2 tab PO Q4HR PRN PRN Reason: Pain (Severe) Stop: 08/08/17 04:35 Last Admin: 06/16/17 04:37 Dose: 2 tab Ascorbic Acid (Vitamin C) 500 mg PO DAILY [facility] Stop: 08/08/17 08:59 Last Admin: 06/16/17 08:42 Dose: 500 mg Baclofen (Lioresal) 10 mg PO TID JACK Stop: 08/08/17 08:59 Last Admin: 06/16/17 08:42 Dose: [address] [place] Oil/[place] Balsam/Trypsin (Venelex) 1 appl TP DAILY JACK Stop: 08/10/17 08:59 Last Admin: 06/16/17 08:43 Dose: 1 appl Diclofenac Sodium (Voltaren) 50 mg PO DAILY [facility] Stop: 08/10/17 08:59 Last Admin: 06/16/17 08:42 Dose: 50 mg Gabapentin (Neurontin) 300 mg PO TID JACK Stop: 08/08/17 08:59 Last Admin: 06/16/17 08:42 Dose: 300 mg Vancomycin HCl 1.25 gm/ Sodium (Chloride) 250 mls @ 165 mls/hr IV Q18H [facility] Stop: 08/08/17 20:59 Last Infusion: 06/15/17 23:13 Dose: Infused Cefepime HCl 2 gm/ Dextrose 100 mls @ 100 mls/hr IV Q12HR [facility] Stop: 08/08/17 20:59 Last Admin: 06/16/17 08:43 Dose: 100 mls/hr Dextrose/Sodium Chloride (D5-0.45ns) 1,000 mls @ 50 mls/hr IV .Q20H [facility] Stop: 08/15/17 04:03 Last Admin: 06/16/17 04:16 Dose: 50 mls/hr Insulin Aspart (Novolog Insulin Sliding Scale) 0 units SUBQ ACHS [facility]ACK PRN Reason: Protocol Stop: 08/08/17 07:29 Last Admin: 06/16/17 08:43 Dose: 2 units Insulin Detemir (Levemir Insulin) 14 units SUBQ HS [facility] PRN Reason: Protocol Stop: 08/13/17 20:59 Last Admin: 06/15/17 21:26 Dose: 14 units Lactobacillus Rhamnosus (Culturelle 15b) 1 each PO DAILY [facility] Stop: 08/10/17 08:59 Last Admin: 06/16/17 08:42 Dose: 1 each Loperamide HCl (Imodium) 4 mg PO Q6H PRN PRN Reason: Diarrhea Stop: 08/08/17 20:48 Last Admin: 06/16/17 04:22 Dose: 4 mg Miscellaneous (Vancomycin Iv Per Pharmacy) 1 ea PRN PRN PRN Reason: PROTOCOL Stop: 08/08/17 04:45 Miscellaneous (Probiotic Screen) 1 [facility] PRN PRN PRN Reason: PROTOCOL Stop: 08/10/17 08:59 Multivitamins/Vitamin C (Theragran) 1 tab PO DAILY [facility] Stop: 08/08/17 08:59 Last Admin: 06/16/17 08:42 Dose: 1 tab Ondansetron HCl (Zofran) 4 mg IV Q6H PRN PRN Reason: Nausea / Vomiting Stop: 08/08/17 08:16 Pantoprazole Sodium (Protonix) 40 mg PO BIDAC [facility] Stop: 08/08/17 07:29 Last Admin: 06/16/17 07:42 Dose: 40 mg Potassium Chloride (Klor-Con) 20 meq PO BID [facility] Stop: 08/08/17 08:59 Last Admin: 06/16/17 08:42 Dose: 20 meq Sitagliptin Phosphate (Januvia) 50 mg PO DAILY [facility] Stop: 08/13/17 08:59 Last Admin: 06/16/17 08:42 Dose: 50 mg General: no acute distress, well developed, well nourished HEENT: atraumatic, normocephalic, PERRLA, EOMI Neck: supple, thyromegaly Cardiovascular: S1S2, regular Lungs: clear to auscultation bilaterally, clear to percussion Abdomen: soft, no tender, no distended Extremities: no cyanosis, no clubbing, no edema Neurological: awake, alert, oriented Skin: intact Infectious Disease Assmt/Plan - Assessment Assessment: 1. Left lower neck swelling, symptomatic at this time. 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 Partially treated. ESR 90 and CRP 7.9. MRI report was reviewed. abscess and osteomyelitis of the left sternoclavicular joint and two fluid collections. 2. Diabetes mellitus type 2. 3. Hypertension. 4. COPD. 5. Dementia. 6. DJD. 7. GERD. 8. Diabetic ulcer of left foot. 9. Left foot TMA. 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 In absence of definite diagnosis, I am unable to provide appropriate treatment plan. meanwhile, follow up on serologies fo cocci and TB Gold quantiferon. Will need percutaneous drainage of fluid and bone biopsy to reach final diagnosis. may need ortho eval. ? debridement of the left sternoclavicular joint. If percutaneous drainage of the fluid collection or bone biopsy performed, please send the following tests. Fluid: Cell count and differential/ gram stain and culture/susceptibility. AFB smear and cultures. Fungal smear and cultures. Cytology. DW Dr Coates, he will perform procedure tomorrow. Nutritional Asmnt/Malnutr-PDOC - Dietary Evaluation Malnutrition Findings (Please click <Entered> for more info): Nutritional Asmnt/Malnutrition Start: 06/09/17 15: 36 Text: Status: Complete Freq: Document 06/09/17 15:36 LCHENG (Rec: 06/09/17 15:46 HENG [email or web address]) Nutritional Asmnt/Malnutrition Patient General Information Nutritional Screening High Risk Consult Diagnosis neck mass Pertinent Medical Hx/Surgical Hx DM, HTN, asthma/COPD, dementia , renal transplant, partial left foot amputation Subjective Information Consult received for diabetic. Pt seen sitting up in bed at time of visit, wake and alert. Pt stated not hungry today, maybe better appetite tommorrow. Pt has no preference about food, every food is ok for him. Current Diet Order/ Nutrition Support CCHO-60gm Pertinent Medications vit C, D5-0.9%ns, glucotrol, novolog, cangomycin, theragran , protonix, kcl Pertinent Labs 06/09 glucose 164-178, POC 160- 227 Nutritional Hx/Data Height 1.7 m Height (Calculated Centimeters) 170.2 Current Weight (lbs) 72.575 kg Weight (Calculated Kilograms) 72.6 Weight (Calculated Grams) 89377.8 [place] Body Weight 148 Body Mass Index (BMI) 25.0 Weight Status Overweight GI Symptoms GI Symptoms None Last BM 06/09 Difficult in: None Skin Integrity/Comment: abrasion to left arm, lump to right knee, left upper neck Estimated Nutritional Goals BEE in Kcals: Using Current wt Calories/Kcals/Kg 23-27 Kcals Calculated 4426-5036 Protein: Using Current wt Protein g/k Protein Calculated 73 Fluid: ml 1679-2336ml (1ml/kcal) Nutritional Problem 1. Problem Problem altered nutrition related labs Etiology hx of DM Signs/Symptoms: glucose 164-178, POC 160-227 Malnutrition Alert Protein-Calorie Malnutrition N/A Is there a minimum of two criteria No selected? Query Text:Check all the applicable criteria. A minimum of two criteria are recommended for diagnosis of either severe or non-severe malnutrition. Intervention/Recommendation Comments 1. Continue with CCHO-60gm diet as ordered. Encouraged oral intake and balanced meal. 2. Monitor PO intake, wt, labs and skin integrity 3. F/U as moderate risk in 3-5 days, 06/12-06/14, PO check Expected Outcomes/Goals Expected Outcomes/Goals 1. PO intake to meet at least 75% of nutritional needs. 2. Wt stability, skin to remain intact, labs to approach WNL.
[2017-06-16 10:27] LABS: INR 1.03 (0.5-1.4); PROTHROMBIN TIME (TEST) 10.7 SECONDS (9.5-11.5)
--- NOTE | 2017-06-16 15:57 | General Progress Note ---
Subjective - Review of Systems Service Date: 06/16/17 Subjective: No new sxs Objective - Results Result Diagrams: 06/16/17 07:30 06/16/17 07:30 Recent Labs: Laboratory Last Values WBC 11.7 Th/cmm (4.8-10.8) H 06/16/17 07:30 RBC 3.70 Mil/cmm (3.80-5.80) L 06/16/17 07:30 Hgb 10.0 gm/dL (12-16) L 06/16/17 07:30 Hct 29.9 % (41.0-60) L 06/16/17 07:30 MCV 80.7 fl (80-99) 06/16/17 07:30 MCH 26.9 pg (27.0-31.0) L 06/16/17 07:30 MCHC Differential 33.3 pg (28.0-36.0) 06/16/17 07:30 RDW 15.8 % (11.5-20.0) 06/16/17 07:30 Plt Count 331 Th/cmm (150-400) 06/16/17 07:30 MPV 7.9 fl 06/16/17 07:30 Neutrophils % 77.3 % (40.0-80.0) 06/16/17 07:30 Lymphocytes % 13.1 % (20.0-50.0) L 06/16/17 07:30 Monocytes % 7.5 % (2.0-10.0) 06/16/17 07:30 Eosinophils % 1.8 % (0.0-5.0) 06/16/17 07:30 Basophils % 0.3 % (0.0-2.0) 06/16/17 07:30 ESR 90 mm/hr (0-20) H 06/10/17 05:50 PT 10.7 SECONDS (9.5-11.5) 06/16/17 07:30 INR 1.03 (0.5-1.4) 06/16/17 07:30 PTT (Actin FS) 28.6 SECONDS (26.0-38.0) 06/09/17 00:56 Sodium 136 mEq/L (136-145) 06/13/17 05:25 Potassium 4.3 mEq/L (3.5-5.1) 06/13/17 05:25 Chloride 108 mEq/L (98-107) H 06/13/17 05:25 Carbon Dioxide 22.7 mEq/L (21.0-31.0) 06/13/17 05:25 Anion Gap 9.6 (7.0-16.0) 06/13/17 05:25 BUN 12 mg/dL (7-25) 06/16/17 07:30 Creatinine 0.9 mg/dL (0.7-1.3) 06/16/17 07:30 Est GFR ( Amer) TNP 06/13/17 05:25 Est GFR (Non-Af Amer) TNP 06/13/17 05:25 BUN/Creatinine Ratio 18.6 06/13/17 05:25 Glucose 164 mg/dL (70-105) H 06/13/17 05:25 POC Glucose 160 MG/DL (70 - 105) H 06/16/17 11:46 Hemoglobin A1c % 9.0 % (4.0-6.0) H 06/09/17 07:05 Whole Bld Lactic Acid 0.80 mmol/L (0.60-1.99) 06/09/17 Unknown Calcium 8.9 mg/dL (8.6-10.3) 06/13/17 05:25 Iron SEE REF.LAB REPORT 06/12/17 05:45 TIBC SEE REF. LAB REPORT 06/12/17 05:45 Iron Saturation SEE REF.LAB REPORT 06/12/17 05:45 Unsaturated IBC SEE REF.LAB REPORT 06/12/17 05:45 Ferritin SEE REF.LAB REPORT 06/12/17 05:45 Total Bilirubin 0.4 mg/dL (0.3-1.0) 06/10/17 05:50 AST 13 U/L (13-39) 06/10/17 05:50 ALT 7 U/L (7-52) 06/10/17 05:50 Alkaline Phosphatase 119 U/L (34-104) H 06/10/17 05:50 Lactate Dehydrogenase 118 U/L (140-271) L 06/10/17 05:50 C-Reactive Protein 7.9 mg/dL (0.0-0.9) H 06/09/17 07:05 Total Protein 6.9 gm/dL (6.0-8.3) 06/10/17 05:50 Albumin 3.0 gm/dL (4.2-5.5) L 06/10/17 05:50 Globulin 3.9 gm/dL 06/10/17 05:50 Albumin/Globulin Ratio 0.8 (1.0-1.8) L 06/10/17 05:50 Triglycerides 85 mg/dL (<150) 06/09/17 07:05 Cholesterol 79 mg/dL (<200) 06/09/17 07:05 LDL Cholesterol Direct 30 mg/dL (75-193) L 06/09/17 07:05 HDL Cholesterol 32 mg/dL (23-92) 06/09/17 07:05 Vitamin B12 SEE REF. LAB REPORT 06/12/17 05:45 Folic Acid SEE REF. LAB REPORT 06/12/17 05:45 TSH 0.51 uIU/ml (0.34-5.60) 06/09/17 07:05 Urine Source RANDOM 06/09/17 10:02 Urine Color YELLOW 06/09/17 10:02 Urine Clarity HAZY (CLEAR) 06/09/17 10:02 Urine pH 5.5 (4.6 - 8.0) 06/09/17 10:02 Ur Specific [place] >= 1.030 (1.005-1.030) 06/09/17 10:02 Urine Protein TRACE mg/dL (NEGATIVE) 06/09/17 10:02 Urine Glucose (UA) NEGATIVE mg/dL (NEGATIVE) 06/09/17 10:02 Urine Ketones 15 mg/dL (NEGATIVE) H 06/09/17 10:02 Urine Blood NEGATIVE (NEGATIVE) 06/09/17 10:02 Urine Nitrate NEGATIVE (NEGATIVE) 06/09/17 10:02 Urine Bilirubin SMALL (NEGATIVE) H 06/09/17 10:02 Urine Urobilinogen 0.2 E.U./dL (0.2 - 1.0) 06/09/17 10:02 Ur Leukocyte Esterase NEGATIVE (NEGATIVE) 06/09/17 10:02 Urine RBC 2-5 /hpf (0-5) H 06/09/17 10:02 Urine WBC 6-10 /hpf (0-5) 06/09/17 10:02 Ur Epithelial Cells FEW /lpf (FEW) 06/09/17 10:02 Calcium Oxalate Crystal MODERATE /hpf 06/09/17 10:02 Urine Bacteria FEW /hpf (NONE SEEN) 06/09/17 10:02 Urine Yeast FEW /hpf (NONE SEEN) H 06/09/17 10:02 U Protein Electrophores SEE SEPARATE REPORT 06/15/17 09:00 Stool Leukocyte MODERATE WBC SEEN 06/16/17 04:15 Vancomycin Trough 24.9 ug/mL (5-10) H 06/16/17 14:00 Coccidioides Ab SEE REF. LAB REPORT 06/09/17 07:05 TB (QFT) Gold In Tube NEGATIVE 06/10/17 05:50 TB Test (QFT) Mitogen 6.52 06/10/17 05:50 TB Test (QFT) Antigen 0.04 06/10/17 05:50 TB Test Antigen - Nil 0.00 06/10/17 05:50 TB Test TB - Nil 0.04 06/10/17 05:50 - Physical Exam Vitals and I&O: Vital Signs Temp 98 F 06/16/17 15:52 Pulse 101 06/16/17 15:52 Resp 18 06/16/17 15:52 BP 144/70 06/16/17 15:52 Pulse Ox 97 06/16/17 15:52 Intake & Output 06/15/17 06/16/17 06/16/17 18:59 06:59 18:59 Intake Total 900 1050 Output Total 1 Balance 900 1049 Weight (lbs) 75.024 kg 74.843 kg Intake: Intake, IV Amount 100 350 Cefepime 2 gm In Dextrose 100 100 5% 100 ml @ 100 mls/hr IV Q12HR [facility] Rx#: [id number] Vancomycin HCl 1.25 gm In 250 Sodium Chloride 0.9% 250 ml @ 165 mls/hr IV Q18H [facility] Rx#:[id number] Oral 800 700 Output: Urine 1 Other: # Voids 3 # Bowel Movements 1 3 Stool Characteristics Soft Weight Source Bedscale Bedscale Active Medications: Current Medications Acetaminophen/Hydrocodone Bitart ([place] 5mg/325mg) 2 tab PO Q4HR PRN PRN Reason: Pain (Severe) Stop: 08/08/17 04:35 Last Admin: 06/16/17 04:37 Dose: 2 tab Ascorbic Acid (Vitamin C) 500 mg PO DAILY [facility] Stop: 08/08/17 08:59 Last Admin: 06/16/17 08:42 Dose: 500 mg Baclofen (Lioresal) 10 mg PO TID [facility] Stop: 08/08/17 08:59 Last Admin: 06/16/17 14:29 Dose: 10 mg [place] Oil/[place] Balsam/Trypsin (Venelex) 1 appl TP DAILY [facility] Stop: 08/10/17 08:59 Last Admin: 06/16/17 08:43 Dose: 1 appl Diclofenac Sodium (Voltaren) 50 mg PO DAILY [facility] Stop: 08/10/17 08:59 Last Admin: 06/16/17 08:42 Dose: 50 mg Gabapentin (Neurontin) 300 mg PO TID [facility] Stop: 08/08/17 08:59 Last Admin: 06/16/17 14:29 Dose: 300 mg Cefepime HCl 2 gm/ Dextrose 100 mls @ 100 mls/hr IV Q12HR [facility] Stop: 08/08/17 20:59 Last Admin: 06/16/17 08:43 Dose: 100 mls/hr Dextrose/Sodium Chloride (D5-0.45ns) 1,000 mls @ 50 mls/hr IV .Q20H [facility] Stop: 08/15/17 04:03 Last Admin: 06/16/17 04:16 Dose: 50 mls/hr Vancomycin HCl 1.25 gm/ Sodium (Chloride) 250 mls @ 165 mls/hr IV Q24H [facility] Stop: 08/16/17 08:59 Insulin Aspart (Novolog Insulin Sliding Scale) 0 units SUBQ ACHS [facility] PRN Reason: Protocol Stop: 08/08/17 07:29 Last Admin: 06/16/17 12:20 Dose: 2 units Insulin Detemir (Levemir Insulin) 14 units SUBQ HS [facility] PRN Reason: Protocol Stop: 08/13/17 20:59 Last Admin: 06/15/17 21:26 Dose: 14 units Lactobacillus Rhamnosus (Culturelle 15b) 1 each PO DAILY [facility] Stop: 08/10/17 08:59 Last Admin: 06/16/17 08:42 Dose: 1 each Loperamide HCl (Imodium) 4 mg PO Q6H PRN PRN Reason: Diarrhea Stop: 08/08/17 20:48 Last Admin: 06/16/17 04:22 Dose: 4 mg Miscellaneous (Vancomycin Iv Per Pharmacy) 1 ea PRN PRN PRN Reason: PROTOCOL Stop: 08/08/17 04:45 Miscellaneous (Probiotic Screen) 1 ea MC PRN PRN PRN Reason: PROTOCOL Stop: 08/10/17 08:59 Multivitamins/Vitamin C (Theragran) 1 tab PO DAILY [facility] Stop: 08/08/17 08:59 Last Admin: 06/16/17 08:42 Dose: 1 tab Ondansetron HCl (Zofran) 4 mg IV Q6H PRN PRN Reason: Nausea / Vomiting Stop: 08/08/17 08:16 Pantoprazole Sodium (Protonix) 40 mg PO BIDAC [facility] Stop: 08/08/17 07:29 Last Admin: 06/16/17 07:42 Dose: 40 mg Potassium Chloride (Klor-Con) 20 meq PO BID [facility] Stop: 08/08/17 08:59 Last Admin: 06/16/17 08:42 Dose: 20 meq Sitagliptin Phosphate (Januvia) 50 mg PO DAILY [facility] Stop: 08/13/17 08:59 Last Admin: 06/16/17 08:42 Dose: 50 mg General: Alert, Oriented x3, No acute distress HEENT: Atraumatic, PERRLA, EOMI Neck: Supple Cardiovascular: Regular rate, Normal S1, Normal S2 Lungs: Clear to auscultation Abdomen: Bowel sounds, Soft Neurological: Normal gait, Normal speech Assessment/Plan - Assessment Assessment: * left sternoclavicular joint osteo * Possible lymphoma CT abd/p: no lymphadenopathy MRI neck noted. may need bone marrow biopsy. follow anemia anderson and SPEP; Nutritional Asmnt/Malnutr-PDOC - Dietary Evaluation Malnutrition Findings (Please click <Entered> for more info): Nutritional Asmnt/Malnutrition Start: 06/09/17 15: 36 Text: Status: Complete Freq: Document 06/09/17 15:36 [facility] (Rec: 06/09/17 15:46 LCHENG [id number]) Nutritional Asmnt/Malnutrition Patient General Information Nutritional Screening High Risk Consult Diagnosis neck mass Pertinent Medical Hx/Surgical Hx DM, HTN, asthma/COPD, dementia , renal transplant, partial left foot amputation Subjective Information Consult received for diabetic. Pt seen sitting up in bed at time of visit, wake and alert. Pt stated not hungry today, maybe better appetite tommorrow. Pt has no preference about food, every food is ok for him. Current Diet Order/ Nutrition Support CCHO-60gm Pertinent Medications vit C, D5-0.9%ns, glucotrol, novolog, cangomycin, theragran , protonix, kcl Pertinent Labs 06/09 glucose 164-178, POC 160- 227 Nutritional Hx/Data Height 1.7 m Height (Calculated Centimeters) 170.2 Current Weight (lbs) 72.575 kg Weight (Calculated Kilograms) 72.6 Weight (Calculated Grams) 38592.8 [place] Body Weight 148 Body Mass Index (BMI) 25.0 Weight Status Overweight GI Symptoms GI Symptoms None Last BM 06/09 Difficult in: None Skin Integrity/Comment: abrasion to left arm, lump to right knee, left upper neck Estimated Nutritional Goals BEE in Kcals: Using Current wt Calories/Kcals/Kg 23-27 Kcals Calculated 0302-0783 Protein: Using Current wt Protein g/k Protein Calculated 73 Fluid: ml 1679-2336ml (1ml/kcal) Nutritional Problem 1. Problem Problem altered nutrition related labs Etiology hx of DM Signs/Symptoms: glucose 164-178, POC 160-227 Malnutrition Alert Protein-Calorie Malnutrition N/A Is there a minimum of two criteria No selected? Query Text:Check all the applicable criteria. A minimum of two criteria are recommended for diagnosis of either severe or non-severe malnutrition. Intervention/Recommendation Comments 1. Continue with [facility]60 diet as ordered. Encouraged oral intake and balanced meal. 2. Monitor PO intake, wt, labs and skin integrity 3. F/U as moderate risk in 3-5 days, 06/12-06/14, PO check Expected Outcomes/Goals Expected Outcomes/Goals 1. PO intake to meet at least 75% of nutritional needs. 2. Wt stability, skin to remain intact, labs to approach WNL.
[2017-06-16 19:48] LABS: ALPHA-1-GLOBULIN 0.2; ALPHA-2-GLOBULIN 0.9; BETA GLOBULIN 0.9; GAMMA GLOBULIN 1.7; GLOBULIN, TOTAL 3.7; M-SPIKE 0.5
[2017-06-16] MEDS: Insulin Detemir 100 units/mL 10mL Vial SUBQ SCH (21:21)
--- NOTE | 2017-06-17 03:21 | Progress Notes ---
DATE: 06/16/2017 Case was discussed with staff of the patient, reviewed records. The patient seems to be showing progress. He denies wheezing. His anxiety level is down. He is still in pain. He reports his main issue is pain. He is compliant with the medication with no side effects, no sedation, no nausea. ____. Thank you very much for allowing me to participate in the care of this most interesting gentleman. JOB# [id number]
[2017-06-17] MEDS ORDERED: D5-0.45NS 1,000 ML IV ONE (07:05)
--- NOTE | 2017-06-17 07:47 | Diagnostic Imaging Report ---
CHEST X-RAY: AP view INDICATION: PICC line placement COMPARISON: 06/09/2017 FINDINGS: Right PICC line has been placed with tip in the SVC. No focal consolidation or effusions. Patient is rotated. Mild cardiomegaly is noted. Degenerative changes of spine are noted with scoliosis. There is radiodensity possibly external material overlying the left hemithorax. IMPRESSION: Right PICC line with tip in SVC. No focal consolidation identified. Radiodensity, possible external material overlying the left hemithorax, correlate clinically.
[2017-06-17] MEDS: INSULIN ASPART SLIDING SCALE 100 UNITS/ML UNIT SUBQ SCH ×2 (08:00→12:52)
[2017-06-17] MEDS: Pantoprazole 40 mg EC Tab PO SCH (08:09)
[2017-06-17] MEDS: Potassium Chloride 20 mEq ER Tab PO SCH (08:10)
[2017-06-17] MEDS: Lactobacillus Rhamnosus GG 15 Billion CFU CAP.SPRINK PO SCH (08:10)
[2017-06-17] MEDS: Multivitamin Tab PO SCH (08:10)
[2017-06-17 08:14] LABS: HEMATOCRIT 30.5 % (41.0-60); HEMOGLOBIN 10.3 gm/dL (12-16); LYMPHOCYTE ABSOLUTE 1.2 Th/cmm (1.5-3.0); MANUAL DIFF REQUIRED? YES; MEAN CELL VOLUME 80.9 fl (80-99); MEAN CORPUSCULAR HEMOGLOBIN 27.2 pg (27.0-31.0); MEAN CORPUSCULAR HGB CONC 33.7 pg (28.0-36.0); MEAN PLATELET VOLUME 8.1 fl; NEUTROPHILE ABSOLUTE 21.8 Th/cmm (1.8-8.0); PLATELET COUNT 316 Th/cmm (150-400); RED BLOOD COUNT 3.77 Mil/cmm (3.80-5.80); RED CELL DISTRIBUTION WIDTH 16.2 % (11.5-20.0)
[2017-06-17 08:29] LABS: ANION GAP 10.8 (7.0-16.0); BUN - UREA NITROGEN 16 mg/dL (7-25); CALCIUM SERUM 9.6 mg/dL (8.6-10.3); CARBON DIOXIDE 20.1 mEq/L (21.0-31.0); CHLORIDE 104 mEq/L (98-107); CREATININE - SERUM 1.2 mg/dL (0.7-1.3); GLUCOSE 255 mg/dL (70-105); POTASSIUM SERUM 4.9 mEq/L (3.5-5.1); SODIUM SERUM 130 mEq/L (136-145)
[2017-06-17] MEDS ORDERED: D5-0.9%NS 1,000 ML IV SCH (08:30)
--- NOTE | 2017-06-17 08:32 | General Progress Note ---
Subjective - Review of Systems Service Date: 06/17/17 Subjective: Patient was seen and examined. No acute distress. afebrile. Patient to have US- guided aspiration of left sternoclavicular aspiration on Thursday. No new changes. Continue IV antibiotics per ID. Awaiting serologies. TB Gold Quantiferon. 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 NPO today for procedure. Objective - Results Result Diagrams: 06/17/17 08:05 06/16/17 07:30 Recent Labs: Laboratory Last Values WBC 24.0 Th/cmm (4.8-10.8) H* D 06/17/17 08:05 RBC 3.77 Mil/cmm (3.80-5.80) L 06/17/17 08:05 Hgb 10.3 gm/dL (12-16) L 06/17/17 08:05 Hct 30.5 % (41.0-60) L 06/17/17 08:05 MCV 80.9 fl (80-99) 06/17/17 08:05 MCH 27.2 pg (27.0-31.0) 06/17/17 08:05 MCHC Differential 33.7 pg (28.0-36.0) 06/17/17 08:05 RDW 16.2 % (11.5-20.0) 06/17/17 08:05 Plt Count 316 Th/cmm (150-400) 06/17/17 08:05 MPV 8.1 fl 06/17/17 08:05 Neutrophils % 90.9 % (40.0-80.0) H 06/17/17 08:05 Lymphocytes % 4.9 % (20.0-50.0) L 06/17/17 08:05 Monocytes % 4.0 % (2.0-10.0) 06/17/17 08:05 Eosinophils % 0.2 % (0.0-5.0) 06/17/17 08:05 Basophils % 0.0 % (0.0-2.0) 06/17/17 08:05 ESR 90 mm/hr (0-20) H 06/10/17 05:50 PT 10.7 SECONDS (9.5-11.5) 06/16/17 07:30 INR 1.03 (0.5-1.4) 06/16/17 07:30 PTT (Actin FS) 28.6 SECONDS (26.0-38.0) 06/09/17 00:56 Sodium 136 mEq/L (136-145) 06/13/17 05:25 Potassium 4.3 mEq/L (3.5-5.1) 06/13/17 05:25 Chloride 108 mEq/L (98-107) H 06/13/17 05:25 Carbon Dioxide 22.7 mEq/L (21.0-31.0) 06/13/17 05:25 Anion Gap 9.6 (7.0-16.0) 06/13/17 05:25 BUN 12 mg/dL (7-25) 06/16/17 07:30 Creatinine 0.9 mg/dL (0.7-1.3) 06/16/17 07:30 Est GFR ( Amer) TNP 06/13/17 05:25 Est GFR (Non-Af Amer) TNP 06/13/17 05:25 BUN/Creatinine Ratio 18.6 06/13/17 05:25 Glucose 164 mg/dL (70-105) H 06/13/17 05:25 POC Glucose 171 MG/DL (70 - 105) H 06/17/17 05:16 Hemoglobin A1c % 9.0 % (4.0-6.0) H 06/09/17 07:05 Whole Bld Lactic Acid 0.80 mmol/L (0.60-1.99) 06/09/17 Unknown Calcium 8.9 mg/dL (8.6-10.3) 06/13/17 05:25 Iron SEE REF.LAB REPORT 06/12/17 05:45 TIBC SEE REF. LAB REPORT 06/12/17 05:45 Iron Saturation SEE REF.LAB REPORT 06/12/17 05:45 Unsaturated IBC SEE REF.LAB REPORT 06/12/17 05:45 Ferritin SEE REF.LAB REPORT 06/12/17 05:45 Total Bilirubin 0.4 mg/dL (0.3-1.0) 06/10/17 05:50 AST 13 U/L (13-39) 06/10/17 05:50 ALT 7 U/L (7-52) 06/10/17 05:50 Alkaline Phosphatase 119 U/L (34-104) H 06/10/17 05:50 Lactate Dehydrogenase 118 U/L (140-271) L 06/10/17 05:50 C-Reactive Protein 7.9 mg/dL (0.0-0.9) H 06/09/17 07:05 Total Protein 9.4 06/14/17 08:00 Albumin 2.4 06/14/17 08:00 Globulin 3.7 06/14/17 08:00 Albumin/Globulin Ratio 0.7 06/14/17 08:00 Ootgw-5-Sqvmqpudn 0.2 06/14/17 08:00 Kookd-6-Tihqyzqfg 0.9 06/14/17 08:00 Beta Globulins 0.9 06/14/17 08:00 Gamma Globulins 1.7 06/14/17 08:00 M-Fermin 0.5 06/14/17 08:00 PEP Note TO FOLLOW 06/14/17 08:00 Triglycerides 85 mg/dL (<150) 06/09/17 07:05 Cholesterol 79 mg/dL (<200) 06/09/17 07:05 LDL Cholesterol Direct 30 mg/dL (75-193) L 06/09/17 07:05 HDL Cholesterol 32 mg/dL (23-92) 06/09/17 07:05 Vitamin B12 SEE REF. LAB REPORT 06/12/17 05:45 Folic Acid SEE REF. LAB REPORT 06/12/17 05:45 TSH 0.51 uIU/ml (0.34-5.60) 06/09/17 07:05 Urine Source RANDOM 06/09/17 10:02 Urine Color YELLOW 06/09/17 10:02 Urine Clarity HAZY (CLEAR) 06/09/17 10:02 Urine pH 5.5 (4.6 - 8.0) 06/09/17 10:02 Ur Specific [place] >= 1.030 (1.005-1.030) 06/09/17 10:02 Urine Protein TRACE mg/dL (NEGATIVE) 06/09/17 10:02 Urine Glucose (UA) NEGATIVE mg/dL (NEGATIVE) 06/09/17 10:02 Urine Ketones 15 mg/dL (NEGATIVE) H 06/09/17 10:02 Urine Blood NEGATIVE (NEGATIVE) 06/09/17 10:02 Urine Nitrate NEGATIVE (NEGATIVE) 06/09/17 10:02 Urine Bilirubin SMALL (NEGATIVE) H 06/09/17 10:02 Urine Urobilinogen 0.2 E.U./dL (0.2 - 1.0) 06/09/17 10:02 Ur Leukocyte Esterase NEGATIVE (NEGATIVE) 06/09/17 10:02 Urine RBC 2-5 /hpf (0-5) H 06/09/17 10:02 Urine WBC 6-10 /hpf (0-5) 06/09/17 10:02 Ur Epithelial Cells FEW /lpf (FEW) 06/09/17 10:02 Calcium Oxalate Crystal MODERATE /hpf 06/09/17 10:02 Urine Bacteria FEW /hpf (NONE SEEN) 06/09/17 10:02 Urine Yeast FEW /hpf (NONE SEEN) H 06/09/17 10:02 U Protein Electrophores SEE SEPARATE REPORT 06/15/17 09:00 Stool Leukocyte MODERATE WBC SEEN 06/16/17 04:15 Vancomycin Trough 24.9 ug/mL (5-10) H 06/16/17 14:00 Coccidioides Ab SEE REF. LAB REPORT 06/09/17 07:05 TB (QFT) Gold In Tube NEGATIVE 06/10/17 05:50 TB Test (QFT) Mitogen 6.52 06/10/17 05:50 TB Test (QFT) Antigen 0.04 06/10/17 05:50 TB Test Antigen - Nil 0.00 06/10/17 05:50 TB Test TB - Nil 0.04 06/10/17 05:50 - Physical Exam Vitals and I&O: Vital Signs Temp 96.4 F 06/17/17 07:54 Pulse 87 06/17/17 07:54 Resp 18 06/17/17 07:54 BP 114/50 06/17/17 07:54 Pulse Ox 100 06/17/17 07:54 Intake & Output 06/16/17 06/17/17 06/17/17 18:59 06:59 18:59 Intake Total 600 100 Balance 600 100 Weight (lbs) 74.843 kg Intake: Intake, IV Amount 100 100 Cefepime 2 gm In Dextrose 100 100 5% 100 ml @ 100 mls/hr IV Q12HR [facility] Rx#: [id number] Oral 500 Other: # Voids 4 # Bowel Movements 5 Stool Characteristics Soft Brown Weight Source Bedscale Active Medications: Current Medications Acetaminophen/Hydrocodone Bitart ([place] 5mg/325mg) 2 tab PO Q4HR PRN PRN Reason: Pain (Severe) Stop: 08/08/17 04:35 Last Admin: 06/16/17 17:08 Dose: 2 tab Ascorbic Acid (Vitamin C) 500 mg PO DAILY [facility] Stop: 08/08/17 08:59 Last Admin: 06/17/17 08:09 Dose: Not Given Baclofen (Lioresal) 10 mg PO TID [facility] Stop: 08/08/17 08:59 Last Admin: 06/17/17 08:10 Dose: Not Given [place] Oil/[place] Balsam/Trypsin (Venelex) 1 appl TP DAILY [facility] Stop: 08/10/17 08:59 Last Admin: 06/16/17 08:43 Dose: 1 appl Diclofenac Sodium (Voltaren) 50 mg PO DAILY [facility] Stop: 08/10/17 08:59 Last Admin: 06/17/17 08:10 Dose: Not Given Gabapentin (Neurontin) 300 mg PO TID [facility] Stop: 08/08/17 08:59 Last Admin: 06/17/17 08:10 Dose: Not Given Cefepime HCl 2 gm/ Dextrose 100 mls @ 100 mls/hr IV Q12HR [facility] Stop: 08/08/17 20:59 Last Admin: 06/17/17 08:20 Dose: 100 mls/hr Vancomycin HCl 1.25 gm/ Sodium (Chloride) 250 mls @ 165 mls/hr IV Q24H [facility] Stop: 08/16/17 08:59 Vancomycin HCl 1.5 gm/ Sodium (Chloride) 500 mls @ 250 mls/hr IV Q24H [facility] Stop: 08/16/17 08:59 Dextrose/Sodium Chloride (D5-0.9%Ns) 1,000 mls @ 75 mls/hr IV .[id number] [facility] Stop: 08/16/17 08:29 Insulin Aspart (Novolog Insulin Sliding Scale) 0 units SUBQ ACHS [facility] PRN Reason: Protocol Stop: 08/08/17 07:29 Last Admin: 06/17/17 08:00 Dose: Not Given Insulin Detemir (Levemir Insulin) 14 units SUBQ HS [facility] PRN Reason: Protocol Stop: 08/13/17 20:59 Last Admin: 06/16/17 21:21 Dose: Not Given Lactobacillus Rhamnosus (Culturelle 15b) 1 each PO DAILY [facility] Stop: 08/10/17 08:59 Last Admin: 06/17/17 08:10 Dose: Not Given Loperamide HCl (Imodium) 4 mg PO Q6H PRN PRN Reason: Diarrhea Stop: 08/08/17 20:48 Last Admin: 06/16/17 17:06 Dose: 4 mg Miscellaneous (Vancomycin Iv Per Pharmacy) 1 ea PRN PRN PRN Reason: PROTOCOL Stop: 08/08/17 04:45 Miscellaneous (Probiotic Screen) 1 ea PRN PRN PRN Reason: PROTOCOL Stop: 08/10/17 08:59 Multivitamins/Vitamin C (Theragran) 1 tab PO DAILY [facility] Stop: 08/08/17 08:59 Last Admin: 06/17/17 08:10 Dose: Not Given Ondansetron HCl (Zofran) 4 mg IV Q6H PRN PRN Reason: Nausea / Vomiting Stop: 08/08/17 08:16 Last Admin: 06/17/17 05:34 Dose: 4 mg Pantoprazole Sodium (Protonix) 40 mg PO BIDAC [facility] Stop: 08/08/17 07:29 Last Admin: 06/17/17 08:09 Dose: Not Given Potassium Chloride (Klor-Con) 20 meq PO BID [facility] Stop: 08/08/17 08:59 Last Admin: 06/17/17 08:10 Dose: Not Given Sitagliptin Phosphate (Januvia) 50 mg PO DAILY [facility] Stop: 08/13/17 08:59 Last Admin: 06/17/17 08:10 Dose: Not Given General: Alert, Oriented x3, No acute distress HEENT: Atraumatic, PERRLA, EOMI Neck: Supple Cardiovascular: Regular rate, Normal S1, Normal S2 Lungs: Clear to auscultation Abdomen: Bowel sounds, Soft Neurological: Normal gait, Normal speech Assessment/Plan - Assessment Assessment: Left lower neck swelling, symptomatic at this time. 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 Partially treated. ESR 90 and CRP 7.9. abscess and osteomyelitis of the left sternoclavicular joint and two fluid collections. For Interventional Radiology for CT or US-guided biopsy of the left sternoclavicular joint. DM type 2 ... increase Levemir to 12u HS + Januvia 50mg PO daily COPD Dementia DJD GERD Diabetic left foot ulcer HTN leukocytosis right knee mass Left foot TMA Anemia - Plan Plan: MRA Chest CT Abd/pelvis Bone Scan ID consult Surgical consult Hem/Onc consult Ortho consult repeat CBC,CMP Vancomycin per pharmacy IV fluids continue home meds. PT eval continue current treatment. Nutritional Asmnt/Malnutr-PDOC - Dietary Evaluation Malnutrition Findings (Please click <Entered> for more info): Nutritional Asmnt/Malnutrition Start: 06/09/17 15: 36 Text: Status: Complete Freq: Document 06/09/17 15:36 [facility] (Rec: 06/09/17 15:46 LCHEN [email or web address]) Nutritional Asmnt/Malnutrition Patient General Information Nutritional Screening High Risk Consult Diagnosis neck mass Pertinent Medical Hx/Surgical Hx DM, HTN, asthma/COPD, dementia , renal transplant, partial left foot amputation Subjective Information Consult received for diabetic. Pt seen sitting up in bed at time of visit, wake and alert. Pt stated not hungry today, maybe better appetite tommorrow. Pt has no preference about food, every food is ok for him. Current Diet Order/ [facility] Pertinent Medications vit C, D5-0.9%ns, glucotrol, novolog, cangomycin, theragran , protonix, kcl Pertinent Labs 06/09 glucose 164-178, POC 160- 227 Nutritional Hx/Data Height 1.7 m Height (Calculated Centimeters) 170.2 Current Weight (lbs) 72.575 kg Weight (Calculated Kilograms) 72.6 Weight (Calculated Grams) 94553.8 [place] Body Weight 148 Body Mass Index (BMI) 25.0 Weight Status Overweight GI Symptoms GI Symptoms None Last BM 06/09 Difficult in: None Skin Integrity/Comment: abrasion to left arm, lump to right knee, left upper neck Estimated Nutritional Goals BEE in Kcals: Using Current wt Calories/Kcals/Kg 23-27 Kcals Calculated 1956-4600 Protein: Using Current wt Protein g/k Protein Calculated 73 Fluid: ml 1679-2336ml (1ml/kcal) Nutritional Problem 1. Problem Problem altered nutrition related labs Etiology hx of DM Signs/Symptoms: glucose 164-178, POC 160-227 Malnutrition Alert Protein-Calorie Malnutrition N/A Is there a minimum of two criteria No selected? Query Text:Check all the applicable criteria. A minimum of two criteria are recommended for diagnosis of either severe or non-severe malnutrition. Intervention/Recommendation Comments 1. Continue with CCHO-60gm diet as ordered. Encouraged oral intake and balanced meal. 2. Monitor PO intake, wt, labs and skin integrity 3. F/U as moderate risk in 3-5 days, 06/12-06/14, PO check Expected Outcomes/Goals Expected Outcomes/Goals 1. PO intake to meet at least 75% of nutritional needs. 2. Wt stability, skin to remain intact, labs to approach WNL.
[2017-06-17 08:35] LABS: BAND NEUTROPHILE 26 % (0-10); LYMPHOCYTE 4 % (20-50); MONOCYTE 1 % (2-10); NEUTROPHILS 69 % (40-80); TOTAL CELLS COUNTED 100
[2017-06-17] MEDS ORDERED: Vancomycin HCl 1.5 GM in Sodium Chloride 0.9% 500 ML IV SCH (09:00)
--- NOTE | 2017-06-17 09:24 | Infectious Disease Prog Note ---
Infectious Disease Subjective - Review of Systems Service Date: 06/17/17 Subjective: Patient has low blood pressure since last night, no fever. His WBC count went upp to 24,000. Infectious Disease Objective - Results Result Diagrams: 06/17/17 08:05 06/17/17 08:05 Recent Labs: Laboratory Last Values WBC 24.0 Th/cmm (4.8-10.8) H* D 06/17/17 08:05 RBC 3.77 Mil/cmm (3.80-5.80) L 06/17/17 08:05 Hgb 10.3 gm/dL (12-16) L 06/17/17 08:05 Hct 30.5 % (41.0-60) L 06/17/17 08:05 MCV 80.9 fl (80-99) 06/17/17 08:05 MCH 27.2 pg (27.0-31.0) 06/17/17 08:05 MCHC Differential 33.7 pg (28.0-36.0) 06/17/17 08:05 RDW 16.2 % (11.5-20.0) 06/17/17 08:05 Plt Count 316 Th/cmm (150-400) 06/17/17 08:05 MPV 8.1 fl 06/17/17 08:05 Neutrophils % [facility] AID 06/17/17 08:05 Band Neutrophils % 26 % (0-10) H 06/17/17 08:05 Lymphocytes % HOME AID 06/17/17 08:05 Monocytes % HOME AID 06/17/17 08:05 Eosinophils % HOME AID 06/17/17 08:05 Basophils % HOME AID 06/17/17 08:05 Neutrophils (Manual) 69 % (40-80) 06/17/17 08:05 Lymphocytes 4 % (20-50) L 06/17/17 08:05 Monocytes 1 % (2-10) L 06/17/17 08:05 ESR 90 mm/hr (0-20) H 06/10/17 05:50 PT 10.7 SECONDS (9.5-11.5) 06/16/17 07:30 INR 1.03 (0.5-1.4) 06/16/17 07:30 PTT (Actin FS) 28.6 SECONDS (26.0-38.0) 06/09/17 00:56 Sodium 130 mEq/L (136-145) L 06/17/17 08:05 Potassium 4.9 mEq/L (3.5-5.1) 06/17/17 08:05 Chloride 104 mEq/L (98-107) 06/17/17 08:05 Carbon Dioxide 20.1 mEq/L (21.0-31.0) L 06/17/17 08:05 Anion Gap 10.8 (7.0-16.0) 06/17/17 08:05 BUN 16 mg/dL (7-25) 06/17/17 08:05 Creatinine 1.2 mg/dL (0.7-1.3) 06/17/17 08:05 Est GFR ( Amer) TNP 06/17/17 08:05 Est GFR (Non-Af Amer) TNP 06/17/17 08:05 BUN/Creatinine Ratio 13.3 06/17/17 08:05 Glucose 255 mg/dL (70-105) H 06/17/17 08:05 POC Glucose 171 MG/DL (70 - 105) H 06/17/17 05:16 Hemoglobin A1c % 9.0 % (4.0-6.0) H 06/09/17 07:05 Whole Bld Lactic Acid 0.80 mmol/L (0.60-1.99) 06/09/17 Unknown Calcium 9.6 mg/dL (8.6-10.3) 06/17/17 08:05 Iron SEE REF.LAB REPORT 06/12/17 05:45 TIBC SEE REF. LAB REPORT 06/12/17 05:45 Iron Saturation SEE REF.LAB REPORT 06/12/17 05:45 Unsaturated IBC SEE REF.LAB REPORT 06/12/17 05:45 Ferritin SEE REF.LAB REPORT 06/12/17 05:45 Total Bilirubin 0.4 mg/dL (0.3-1.0) 06/10/17 05:50 AST 13 U/L (13-39) 06/10/17 05:50 ALT 7 U/L (7-52) 06/10/17 05:50 Alkaline Phosphatase 119 U/L (34-104) H 06/10/17 05:50 Lactate Dehydrogenase 118 U/L (140-271) L 06/10/17 05:50 C-Reactive Protein 7.9 mg/dL (0.0-0.9) H 06/09/17 07:05 Total Protein 9.4 06/14/17 08:00 Albumin 2.4 06/14/17 08:00 Globulin 3.7 06/14/17 08:00 Albumin/Globulin Ratio 0.7 06/14/17 08:00 Qavbl-2-Wivnfpbyf 0.2 06/14/17 08:00 Bctxq-2-Ljneqkuha 0.9 06/14/17 08:00 Beta Globulins 0.9 06/14/17 08:00 Gamma Globulins 1.7 06/14/17 08:00 M-Fermin 0.5 06/14/17 08:00 PEP Note TO FOLLOW 06/14/17 08:00 Triglycerides 85 mg/dL (<150) 06/09/17 07:05 Cholesterol 79 mg/dL (<200) 06/09/17 07:05 LDL Cholesterol Direct 30 mg/dL (75-193) L 06/09/17 07:05 HDL Cholesterol 32 mg/dL (23-92) 06/09/17 07:05 Vitamin B12 SEE REF. LAB REPORT 06/12/17 05:45 Folic Acid SEE REF. LAB REPORT 06/12/17 05:45 TSH 0.51 uIU/ml (0.34-5.60) 06/09/17 07:05 Urine Source RANDOM 06/09/17 10:02 Urine Color YELLOW 06/09/17 10:02 Urine Clarity HAZY (CLEAR) 06/09/17 10:02 Urine pH 5.5 (4.6 - 8.0) 06/09/17 10:02 Ur Specific [place] >= 1.030 (1.005-1.030) 06/09/17 10:02 Urine Protein TRACE mg/dL (NEGATIVE) 06/09/17 10:02 Urine Glucose (UA) NEGATIVE mg/dL (NEGATIVE) 06/09/17 10:02 Urine Ketones 15 mg/dL (NEGATIVE) H 06/09/17 10:02 Urine Blood NEGATIVE (NEGATIVE) 06/09/17 10:02 Urine Nitrate NEGATIVE (NEGATIVE) 06/09/17 10:02 Urine Bilirubin SMALL (NEGATIVE) H 06/09/17 10:02 Urine Urobilinogen 0.2 E.U./dL (0.2 - 1.0) 06/09/17 10:02 Ur Leukocyte Esterase NEGATIVE (NEGATIVE) 06/09/17 10:02 Urine RBC 2-5 /hpf (0-5) H 06/09/17 10:02 Urine WBC 6-10 /hpf (0-5) 06/09/17 10:02 Ur Epithelial Cells FEW /lpf (FEW) 06/09/17 10:02 Calcium Oxalate Crystal MODERATE /hpf 06/09/17 10:02 Urine Bacteria FEW /hpf (NONE SEEN) 06/09/17 10:02 Urine Yeast FEW /hpf (NONE SEEN) H 06/09/17 10:02 U Protein Electrophores SEE SEPARATE REPORT 06/15/17 09:00 Stool Leukocyte MODERATE WBC SEEN 06/16/17 04:15 Vancomycin Trough 24.9 ug/mL (5-10) H 06/16/17 14:00 Coccidioides Ab SEE REF. LAB REPORT 06/09/17 07:05 TB (QFT) Gold In Tube NEGATIVE 06/10/17 05:50 TB Test (QFT) Mitogen 6.52 06/10/17 05:50 TB Test (QFT) Antigen 0.04 06/10/17 05:50 TB Test Antigen - Nil 0.00 06/10/17 05:50 TB Test TB - Nil 0.04 06/10/17 05:50 - Physical Exam Vitals and I&O: Vital Signs Temp 96.4 F 06/17/17 07:54 Pulse 87 06/17/17 07:54 Resp 18 06/17/17 07:54 BP 114/50 06/17/17 07:54 Pulse Ox 100 06/17/17 07:54 Intake & Output 06/16/17 06/17/17 06/17/17 18:59 06:59 18:59 Intake Total 600 100 Balance 600 100 Weight (lbs) 74.843 kg Intake: Intake, IV Amount 100 100 Cefepime 2 gm In Dextrose 100 100 5% 100 ml @ 100 mls/hr IV Q12HR [facility] Rx#: [id number] Oral 500 Other: # Voids 4 # Bowel Movements 5 Stool Characteristics Soft Brown Weight Source Bedscale Active Medications: Current Medications Acetaminophen/Hydrocodone Bitart ([place] 5mg/325mg) 2 tab PO Q4HR PRN PRN Reason: Pain (Severe) Stop: 08/08/17 04:35 Last Admin: 06/16/17 17:08 Dose: 2 tab Ascorbic Acid (Vitamin C) 500 mg PO DAILY [facility] Stop: 08/08/17 08:59 Last Admin: 06/17/17 08:09 Dose: Not Given Baclofen (Lioresal) 10 mg PO TID [facility] Stop: 08/08/17 08:59 Last Admin: 06/17/17 08:10 Dose: Not Given [place] Oil/[place] Balsam/Trypsin (Venelex) 1 appl TP DAILY [facility] Stop: 08/10/17 08:59 Last Admin: 06/16/17 08:43 Dose: 1 appl Diclofenac Sodium (Voltaren) 50 mg PO DAILY [facility] Stop: 08/10/17 08:59 Last Admin: 06/17/17 08:10 Dose: Not Given Gabapentin (Neurontin) 300 mg PO TID [facility] Stop: 08/08/17 08:59 Last Admin: 06/17/17 08:10 Dose: Not Given Cefepime HCl 2 gm/ Dextrose 100 mls @ 100 mls/hr IV Q12HR [facility] Stop: 08/08/17 20:59 Last Admin: 06/17/17 08:20 Dose: 100 mls/hr Vancomycin HCl 1.25 gm/ Sodium (Chloride) 250 mls @ 165 mls/hr IV Q24H [facility] Stop: 08/16/17 08:59 Vancomycin HCl 1.5 gm/ Sodium (Chloride) 500 mls @ 250 mls/hr IV Q24H [facility] Stop: 08/16/17 08:59 Dextrose/Sodium Chloride (D5-0.9%Ns) 1,000 mls @ 75 mls/hr IV .[id number] [facility] Stop: 08/16/17 08:29 Insulin Aspart (Novolog Insulin Sliding Scale) 0 units SUBQ ACHS JACK PRN Reason: Protocol Stop: 08/08/17 07:29 Last Admin: 06/17/17 08:00 Dose: Not Given Insulin Detemir (Levemir Insulin) 14 units SUBQ HS [facility] PRN Reason: Protocol Stop: 08/13/17 20:59 Last Admin: 06/16/17 21:21 Dose: Not Given Lactobacillus Rhamnosus (Culturelle 15b) 1 each PO DAILY [facility] Stop: 08/10/17 08:59 Last Admin: 06/17/17 08:10 Dose: Not Given Loperamide HCl (Imodium) 4 mg PO Q6H PRN PRN Reason: Diarrhea Stop: 08/08/17 20:48 Last Admin: 06/16/17 17:06 Dose: 4 mg Miscellaneous (Vancomycin Iv Per Pharmacy) 1 ea PRN PRN PRN Reason: PROTOCOL Stop: 08/08/17 04:45 Miscellaneous (Probiotic Screen) 1 ea PRN PRN PRN Reason: PROTOCOL Stop: 08/10/17 08:59 Multivitamins/Vitamin C (Theragran) 1 tab PO DAILY [facility] Stop: 08/08/17 08:59 Last Admin: 06/17/17 08:10 Dose: Not Given Ondansetron HCl (Zofran) 4 mg IV Q6H PRN PRN Reason: Nausea / Vomiting Stop: 08/08/17 08:16 Last Admin: 06/17/17 05:34 Dose: 4 mg Pantoprazole Sodium (Protonix) 40 mg PO BIDAC [facility] Stop: 08/08/17 07:29 Last Admin: 06/17/17 08:09 Dose: Not Given Potassium Chloride (Klor-Con) 20 meq PO BID [facility] Stop: 08/08/17 08:59 Last Admin: 06/17/17 08:10 Dose: Not Given Sitagliptin Phosphate (Januvia) 50 mg PO DAILY [facility] Stop: 08/13/17 08:59 Last Admin: 06/17/17 08:10 Dose: Not Given General: no acute distress, well developed, well nourished HEENT: atraumatic, normocephalic, PERRLA Neck: supple, other (left sided sternoclavicular joint swelling.), no thyromegaly Cardiovascular: S1S2, regular Lungs: clear to auscultation bilaterally, clear to percussion Abdomen: soft, no tender, no distended Extremities: no cyanosis, no clubbing Neurological: awake, alert, oriented Skin: intact Infectious Disease Assmt/Plan - Assessment Assessment: 1. Left lower neck swelling, symptomatic at this time. 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 Partially treated. ESR 90 and CRP 7.9. MRI report was reviewed. abscess and osteomyelitis of the left sternoclavicular joint and two fluid collections. 2. Diabetes mellitus type 2. 3. Hypertension. 4. COPD. 5. Dementia. 6. DJD. 7. GERD. 8. Diabetic ulcer of left foot. 9. 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 Hypotension, r/o sepsis. cardiac etiology. - Plan Plan: Continue vancomycin IV and cefepime IV fro 6 weeks, if there is no improvement or recurrence, then he might need surgical intervention for definite cure and diagnosis. In absence of definite diagnosis, I am unable to provide appropriate treatment plan. meanwhile, follow up on serologies fo cocci and TB Gold quantiferon. Will need percutaneous drainage of fluid and bone biopsy to reach final diagnosis. may need ortho eval. ? debridement of the left sternoclavicular joint. If percutaneous drainage of the fluid collection or bone biopsy performed, please send the following tests. Fluid: Cell count and differential/ gram stain and culture/susceptibility. AFB smear and cultures. Fungal smear and cultures. Cytology. Will get ekg, troponins, blood cs, ua urne cs cxr ,lactic acid, now. Nutritional Asmnt/Malnutr-PDOC - Dietary Evaluation Malnutrition Findings (Please click <Entered> for more info): Nutritional Asmnt/Malnutrition Start: 06/09/17 15: 36 Text: Status: Complete Freq: Document 06/09/17 15:36 LCHENG (Rec: 06/09/17 15:46 LCHENG [email or web address]) Nutritional Asmnt/Malnutrition Patient General Information Nutritional Screening High Risk Consult Diagnosis neck mass Pertinent Medical Hx/Surgical Hx DM, HTN, asthma/COPD, dementia , renal transplant, partial left foot amputation Subjective Information Consult received for diabetic. Pt seen sitting up in bed at time of visit, wake and alert. Pt stated not hungry today, maybe better appetite tommorrow. Pt has no preference about food, every food is ok for him. Current Diet Order/ Nutrition Support CCHO-60gm Pertinent Medications vit C, D5-0.9%ns, glucotrol, novolog, cangomycin, theragran , protonix, kcl Pertinent Labs 4/24 glucose 164-178, POC 160- 227 Nutritional Hx/Data Height 1.7 m Height (Calculated Centimeters) 170.2 Current Weight (lbs) 72.575 kg Weight (Calculated Kilograms) 72.6 Weight (Calculated Grams) 66999.8 [place] Body Weight 148 Body Mass Index (BMI) 25.0 Weight Status Overweight GI Symptoms GI Symptoms None Last BM 06/09 Difficult in: None Skin Integrity/Comment: abrasion to left arm, lump to right knee, left upper neck Estimated Nutritional Goals BEE in Kcals: Using Current wt Calories/Kcals/Kg 23-27 Kcals Calculated [id number] Protein: Using Current wt Protein g/k Protein Calculated 73 Fluid: ml 1679-2336ml (1ml/kcal) Nutritional Problem 1. Problem Problem altered nutrition related labs Etiology hx of DM Signs/Symptoms: glucose 164-178, POC 160-227 Malnutrition Alert Protein-Calorie Malnutrition N/A Is there a minimum of two criteria No selected? Query Text:Check all the applicable criteria. A minimum of two criteria are recommended for diagnosis of either severe or non-severe malnutrition. Intervention/Recommendation Comments 1. Continue with CCHO-60gm diet as ordered. Encouraged oral intake and balanced meal. 2. Monitor PO intake, wt, labs and skin integrity 3. F/U as moderate risk in 3-5 days, 06/12-06/14, PO check Expected Outcomes/Goals Expected Outcomes/Goals 1. PO intake to meet at least 75% of nutritional needs. 2. Wt stability, skin to remain intact, labs to approach WNL.
--- NOTE | 2017-06-17 09:52 | General Progress Note ---
Subjective - Review of Systems Service Date: 06/17/17 Subjective: Feels weak Objective - Results Result Diagrams: 06/17/17 08:05 06/17/17 08:05 Recent Labs: Laboratory Last Values WBC 24.0 Th/cmm (4.8-10.8) H* D 06/17/17 08:05 RBC 3.77 Mil/cmm (3.80-5.80) L 06/17/17 08:05 Hgb 10.3 gm/dL (12-16) L 06/17/17 08:05 Hct 30.5 % (41.0-60) L 06/17/17 08:05 MCV 80.9 fl (80-99) 06/17/17 08:05 MCH 27.2 pg (27.0-31.0) 06/17/17 08:05 MCHC Differential 33.7 pg (28.0-36.0) 06/17/17 08:05 RDW 16.2 % (11.5-20.0) 06/17/17 08:05 Plt Count 316 Th/cmm (150-400) 06/17/17 08:05 MPV 8.1 fl 06/17/17 08:05 Neutrophils % [facility] [employer]PER[employer] 06/17/17 08:05 Band Neutrophils % 26 % (0-10) H 06/17/17 08:05 Lymphocytes % [employer]RED[employer] OPER[employer] 06/17/17 08:05 Monocytes % [employer]RED[employer] OPERATOR 06/17/17 08:05 Eosinophils % [employer]RED[employer] OPERATOR 06/17/17 08:05 Basophils % [employer]RED[employer] OPERATOR 06/17/17 08:05 Neutrophils (Manual) 69 % (40-80) 06/17/17 08:05 Lymphocytes 4 % (20-50) L 06/17/17 08:05 Monocytes 1 % (2-10) L 06/17/17 08:05 ESR 90 mm/hr (0-20) H 06/10/17 05:50 PT 10.7 SECONDS (9.5-11.5) 06/16/17 07:30 INR 1.03 (0.5-1.4) 06/16/17 07:30 PTT (Actin FS) 28.6 SECONDS (26.0-38.0) 06/09/17 00:56 Sodium 130 mEq/L (136-145) L 06/17/17 08:05 Potassium 4.9 mEq/L (3.5-5.1) 06/17/17 08:05 Chloride 104 mEq/L (98-107) 06/17/17 08:05 Carbon Dioxide 20.1 mEq/L (21.0-31.0) L 06/17/17 08:05 Anion Gap 10.8 (7.0-16.0) 06/17/17 08:05 BUN 16 mg/dL (7-25) 06/17/17 08:05 Creatinine 1.2 mg/dL (0.7-1.3) 06/17/17 08:05 Est GFR ( Amer) TNP 06/17/17 08:05 Est GFR (Non-Af Amer) TNP 06/17/17 08:05 BUN/Creatinine Ratio 13.3 06/17/17 08:05 Glucose 255 mg/dL (70-105) H 06/17/17 08:05 POC Glucose 171 MG/DL (70 - 105) H 06/17/17 05:16 Hemoglobin A1c % 9.0 % (4.0-6.0) H 06/09/17 07:05 Whole Bld Lactic Acid 0.80 mmol/L (0.60-1.99) 06/09/17 Unknown Calcium 9.6 mg/dL (8.6-10.3) 06/17/17 08:05 Iron SEE REF.LAB REPORT 06/12/17 05:45 TIBC SEE REF. LAB REPORT 06/12/17 05:45 Iron Saturation SEE REF.LAB REPORT 06/12/17 05:45 Unsaturated IBC SEE REF.LAB REPORT 06/12/17 05:45 Ferritin SEE REF.LAB REPORT 06/12/17 05:45 Total Bilirubin 0.4 mg/dL (0.3-1.0) 06/10/17 05:50 AST 13 U/L (13-39) 06/10/17 05:50 ALT 7 U/L (7-52) 06/10/17 05:50 Alkaline Phosphatase 119 U/L (34-104) H 06/10/17 05:50 Lactate Dehydrogenase 118 U/L (140-271) L 06/10/17 05:50 C-Reactive Protein 7.9 mg/dL (0.0-0.9) H 06/09/17 07:05 Total Protein 9.4 06/14/17 08:00 Albumin 2.4 06/14/17 08:00 Globulin 3.7 06/14/17 08:00 Albumin/Globulin Ratio 0.7 06/14/17 08:00 Zbdlu-3-Tfndroouk 0.2 06/14/17 08:00 Wdury-7-Oefwmxbqu 0.9 06/14/17 08:00 Beta Globulins 0.9 06/14/17 08:00 Gamma Globulins 1.7 06/14/17 08:00 M-Fermin 0.5 06/14/17 08:00 PEP Note TO FOLLOW 06/14/17 08:00 Triglycerides 85 mg/dL (<150) 06/09/17 07:05 Cholesterol 79 mg/dL (<200) 06/09/17 07:05 LDL Cholesterol Direct 30 mg/dL (75-193) L 06/09/17 07:05 HDL Cholesterol 32 mg/dL (23-92) 06/09/17 07:05 Vitamin B12 SEE REF. LAB REPORT 06/12/17 05:45 Folic Acid SEE REF. LAB REPORT 06/12/17 05:45 TSH 0.51 uIU/ml (0.34-5.60) 06/09/17 07:05 Urine Source RANDOM 06/09/17 10:02 Urine Color YELLOW 06/09/17 10:02 Urine Clarity HAZY (CLEAR) 06/09/17 10:02 Urine pH 5.5 (4.6 - 8.0) 06/09/17 10:02 Ur Specific [place] >= 1.030 (1.005-1.030) 06/09/17 10:02 Urine Protein TRACE mg/dL (NEGATIVE) 06/09/17 10:02 Urine Glucose (UA) NEGATIVE mg/dL (NEGATIVE) 06/09/17 10:02 Urine Ketones 15 mg/dL (NEGATIVE) H 06/09/17 10:02 Urine Blood NEGATIVE (NEGATIVE) 06/09/17 10:02 Urine Nitrate NEGATIVE (NEGATIVE) 06/09/17 10:02 Urine Bilirubin SMALL (NEGATIVE) H 06/09/17 10:02 Urine Urobilinogen 0.2 E.U./dL (0.2 - 1.0) 06/09/17 10:02 Ur Leukocyte Esterase NEGATIVE (NEGATIVE) 06/09/17 10:02 Urine RBC 2-5 /hpf (0-5) H 06/09/17 10:02 Urine WBC 6-10 /hpf (0-5) 06/09/17 10:02 Ur Epithelial Cells FEW /lpf (FEW) 06/09/17 10:02 Calcium Oxalate Crystal MODERATE /hpf 06/09/17 10:02 Urine Bacteria FEW /hpf (NONE SEEN) 06/09/17 10:02 Urine Yeast FEW /hpf (NONE SEEN) H 06/09/17 10:02 U Protein Electrophores SEE SEPARATE REPORT 06/15/17 09:00 Stool Leukocyte MODERATE WBC SEEN 06/16/17 04:15 Vancomycin Trough 24.9 ug/mL (5-10) H 06/16/17 14:00 Coccidioides Ab SEE REF. LAB REPORT 06/09/17 07:05 TB (QFT) Gold In Tube NEGATIVE 06/10/17 05:50 TB Test (QFT) Mitogen 6.52 06/10/17 05:50 TB Test (QFT) Antigen 0.04 06/10/17 05:50 TB Test Antigen - Nil 0.00 06/10/17 05:50 TB Test TB - Nil 0.04 06/10/17 05:50 - Physical Exam Vitals and I&O: Vital Signs Temp 96.4 F 06/17/17 07:54 Pulse 87 06/17/17 07:54 Resp 18 06/17/17 07:54 BP 114/50 06/17/17 07:54 Pulse Ox 100 06/17/17 07:54 Intake & Output 06/16/17 06/17/17 06/17/17 18:59 06:59 18:59 Intake Total 600 100 Balance 600 100 Weight (lbs) 74.843 kg Intake: Intake, IV Amount 100 100 Cefepime 2 gm In Dextrose 100 100 5% 100 ml @ 100 mls/hr IV Q12HR [facility] Rx#: [id number] Oral 500 Other: # Voids 4 # Bowel Movements 5 Stool Characteristics Soft Brown Weight Source Bedscale Active Medications: Current Medications Acetaminophen/Hydrocodone Bitart ([place] 5mg/325mg) 2 tab PO Q4HR PRN PRN Reason: Pain (Severe) Stop: 08/08/17 04:35 Last Admin: 06/16/17 17:08 Dose: 2 tab Ascorbic Acid (Vitamin C) 500 mg PO DAILY [facility] Stop: 08/08/17 08:59 Last Admin: 06/17/17 08:09 Dose: Not Given Baclofen (Lioresal) 10 mg PO TID [facility] Stop: 08/08/17 08:59 Last Admin: 06/17/17 08:10 Dose: Not Given [place] Oil/Citizen [place] Balsam/Trypsin (Venelex) 1 appl TP DAILY [facility] Stop: 08/10/17 08:59 Last Admin: 06/16/17 08:43 Dose: 1 appl Diclofenac Sodium (Voltaren) 50 mg PO DAILY [facility] Stop: 08/10/17 08:59 Last Admin: 06/17/17 08:10 Dose: Not Given Gabapentin (Neurontin) 300 mg PO TID [facility] Stop: 08/08/17 08:59 Last Admin: 06/17/17 08:10 Dose: Not Given Cefepime HCl 2 gm/ Dextrose 100 mls @ 100 mls/hr IV Q12HR [facility] Stop: 08/08/17 20:59 Last Admin: 06/17/17 08:20 Dose: 100 mls/hr Vancomycin HCl 1.5 gm/ Sodium (Chloride) 500 mls @ 250 mls/hr IV Q24H [facility] Stop: 08/16/17 08:59 Dextrose/Sodium Chloride (D5-0.9%Ns) 1,000 mls @ 75 mls/hr IV .[id number] [facility] Stop: 08/16/17 08:29 Sodium Chloride (Nacl 0.9%) 1,000 mls @ 0 mls/hr IV .Q0M [facility]ACK PRN Reason: Wide Open Stop: 08/16/17 09:29 Insulin Aspart (Novolog Insulin Sliding Scale) 0 units SUBQ ACHS [facility]ACK PRN Reason: Protocol Stop: 08/08/17 07:29 Last Admin: 06/17/17 08:00 Dose: Not Given Insulin Detemir (Levemir Insulin) 14 units SUBQ HS [facility] PRN Reason: Protocol Stop: 08/13/17 20:59 Last Admin: 06/16/17 21:21 Dose: Not Given Lactobacillus Rhamnosus (Culturelle 15b) 1 each PO DAILY [facility] Stop: 08/10/17 08:59 Last Admin: 06/17/17 08:10 Dose: Not Given Loperamide HCl (Imodium) 4 mg PO Q6H PRN PRN Reason: Diarrhea Stop: 08/08/17 20:48 Last Admin: 06/16/17 17:06 Dose: 4 mg Miscellaneous (Vancomycin Iv Per Pharmacy) 1 ea PRN PRN PRN Reason: PROTOCOL Stop: 08/08/17 04:45 Miscellaneous (Probiotic Screen) 1 ea PRN PRN PRN Reason: PROTOCOL Stop: 08/10/17 08:59 Multivitamins/Vitamin C (Theragran) 1 tab PO DAILY [facility] Stop: 08/08/17 08:59 Last Admin: 06/17/17 08:10 Dose: Not Given Ondansetron HCl (Zofran) 4 mg IV Q6H PRN PRN Reason: Nausea / Vomiting Stop: 08/08/17 08:16 Last Admin: 06/17/17 05:34 Dose: 4 mg Pantoprazole Sodium (Protonix) 40 mg PO BIDAC [facility] Stop: 08/08/17 07:29 Last Admin: 06/17/17 08:09 Dose: Not Given Potassium Chloride (Klor-Con) 20 meq PO BID [facility] Stop: 08/08/17 08:59 Last Admin: 06/17/17 08:10 Dose: Not Given Sitagliptin Phosphate (Januvia) 50 mg PO DAILY [facility] Stop: 08/13/17 08:59 Last Admin: 06/17/17 08:10 Dose: Not Given General: Alert, Oriented x3, No acute distress HEENT: Atraumatic, PERRLA, EOMI Neck: Supple Cardiovascular: Regular rate, Normal S1, Normal S2 Lungs: Clear to auscultation Abdomen: Bowel sounds, Soft Neurological: Normal gait, Normal speech Assessment/Plan - Assessment Assessment: * left sternoclavicular joint osteo * Possible lymphoma * Reactive leukocytosis on antibiotics per ID CT abd/p: no lymphadenopathy MRI neck noted. follow anemia anderson and SPEP; Nutritional Asmnt/Malnutr-PDOC - Dietary Evaluation Malnutrition Findings (Please click <Entered> for more info): Nutritional Asmnt/Malnutrition Start: 06/09/17 15: 36 Text: Status: Complete Freq: Document 06/09/17 15:36 [place] (Rec: 06/09/17 15:46 LCHEN [email or web address]) Nutritional Asmnt/Malnutrition Patient General Information Nutritional Screening High Risk Consult Diagnosis neck mass Pertinent Medical Hx/Surgical Hx DM, HTN, asthma/COPD, dementia , renal transplant, partial left foot amputation Subjective Information Consult received for diabetic. Pt seen sitting up in bed at time of visit, wake and alert. Pt stated not hungry today, maybe better appetite tommorrow. Pt has no preference about food, every food is ok for him. Current Diet Order/ Nutrition Support [facility] Pertinent Medications vit C, D5-0.9%ns, glucotrol, novolog, cangomycin, theragran , protonix, kcl Pertinent Labs 06/09 glucose 164-178, POC 160- 227 Nutritional Hx/Data Height 1.7 m Height (Calculated Centimeters) 170.2 Current Weight (lbs) 72.575 kg Weight (Calculated Kilograms) 72.6 Weight (Calculated Grams) 66968.8 [place] Body Weight 148 Body Mass Index (BMI) 25.0 Weight Status Overweight GI Symptoms GI Symptoms None Last BM 06/09 Difficult in: None Skin Integrity/Comment: abrasion to left arm, lump to right knee, left upper neck Estimated Nutritional Goals BEE in Kcals: Using Current wt Calories/Kcals/Kg 23-27 Kcals Calculated 1938-3905 Protein: Using Current wt Protein g/k Protein Calculated 73 Fluid: ml 1679-2336ml (1ml/kcal) Nutritional Problem 1. Problem Problem altered nutrition related labs Etiology hx of DM Signs/Symptoms: glucose 164-178, POC 160-227 Malnutrition Alert Protein-Calorie Malnutrition N/A Is there a minimum of two criteria No selected? Query Text:Check all the applicable criteria. A minimum of two criteria are recommended for diagnosis of either severe or non-severe malnutrition. Intervention/Recommendation Comments 1. Continue with [address] diet as ordered. Encouraged oral intake and balanced meal. 2. Monitor PO intake, wt, labs and skin integrity 3. F/U as moderate risk in 3-5 days, 06/12-06/14, PO check Expected Outcomes/Goals Expected Outcomes/Goals 1. PO intake to meet at least 75% of nutritional needs. 2. Wt stability, skin to remain intact, labs to approach WNL.
--- NOTE | 2017-06-17 10:01 | Diagnostic Imaging Report ---
CHEST X-RAY: AP view INDICATION: Pneumonia COMPARISON: 06/16/2017 FINDINGS: Right PICC line is stable. Left basal subsegmental atelectasis versus scarring is noted. There is no focal consolidation or pleural effusions . There is mild elevation of the right hemidiaphragm. Heart size is normal. IMPRESSION: Left basal subsegmental atelectasis versus scarring. No focal consolidation identified.
[2017-06-17 10:15] LABS: BASOPHILE ABSOLUTE 0.2 Th/cumm (0-0.2); EOSINOPHILE ABSOLUTE 0.1 Th/cmm (0.1-0.4); HEMATOCRIT 27.8 % (41.0-60); HEMOGLOBIN 9.3 gm/dL (12-16); LYMPHOCYTE ABSOLUTE 1.3 Th/cmm (1.5-3.0); MANUAL DIFF REQUIRED? YES; MEAN CELL VOLUME 81.1 fl (80-99); MEAN CORPUSCULAR HGB CONC 33.3 pg (28.0-36.0); MEAN PLATELET VOLUME 7.8 fl; MONOCYTE ABSOLUTE 1.4 Th/cmm (0.3-1.0); NEUTROPHILE ABSOLUTE 20.9 Th/cmm (1.8-8.0); PLATELET COUNT 291 Th/cmm (150-400); RED BLOOD COUNT 3.42 Mil/cmm (3.80-5.80); RED CELL DISTRIBUTION WIDTH 16.2 % (11.5-20.0)
[2017-06-17] MEDS ORDERED: Sodium Chloride 0.9% 1,000 ML IV ONE (10:30)
[2017-06-17 10:32] LABS: ALB/GLOB RATIO 0.8 (1.0-1.8); ALBUMIN 2.7 gm/dL (4.2-5.5); ALKALINE PHOSPHATASE 113 U/L (34-104); BILIRUBIN,TOTAL 0.6 mg/dL (0.3-1.0); BUN - UREA NITROGEN 15 mg/dL (7-25); CALCIUM SERUM 9.3 mg/dL (8.6-10.3); CARBON DIOXIDE 19.9 mEq/L (21.0-31.0); CHLORIDE 105 mEq/L (98-107); CREATININE - SERUM 1.2 mg/dL (0.7-1.3); GLUCOSE 280 mg/dL (70-105); POTASSIUM SERUM 4.9 mEq/L (3.5-5.1); SGOT 17 U/L (13-39); SGPT/ALT 17 U/L (7-52); SODIUM SERUM 130 mEq/L (136-145); TOTAL PROTEIN,SERUM 6.1 gm/dL (6.0-8.3)
[2017-06-17 10:35] LABS: WHITE BLOOD COUNT 23.9 Th/cmm (4.8-10.8)
[2017-06-17 10:50] LABS: TOTAL CELLS COUNTED 100
[2017-06-17 10:51] LABS: BAND NEUTROPHILE 38 % (0-10); LYMPHOCYTE 7 % (20-50); MONOCYTE 4 % (2-10); NEUTROPHILS 52 % (40-80)
[2017-06-17] MEDS: Hydrocodone/APAP 5mg/325mg Tab PO PRN (12:52)
[2017-06-17 16:19] LABS: FERRITIN 143 ng/mL (30-400); FOLIC ACID 10.2 ng/mL (>3.0); IRON LC 33 ug/dL (38-169); TIBC (LC) 157 ug/dL (250-450); UIBC 124 ug/dL (111-343)
[2017-06-17 17:09] LABS: ALBUMIN 2.7 g/dL (2.9-4.4); PROTEIN, TOTAL, SERUM 6.4 g/dL (6.0-8.5)
--- NOTE | 2017-06-17 22:35 | Progress Notes ---
DATE: 06/17/2017 SUBJECTIVE: Chart reviewed and the patient interviewed. Also, discussed the patient's condition with the staff and reviewed records and labs. The patient remains calm and less irritable and less agitated. The patient also is interacting more. The patient also has continued to have a cooperative and compliant with taking his medications with no side effects of medications. ASSESSMENT: The patient is calm. Currently, cooperative. TREATMENT PLAN: We will continue to monitor his behavior and his condition closely. Also, we will continue to work on his ineffective coping. JOB# [id number]
== END 2017-06-17 15:45 | DRG 344 ==
LOC: ER 00:03 → MSI 02:45 → TELE 06-11 12:28 → MSI 06-14 13:47
PROVIDERS: ADMIT Family Medicine; ATTEND Family Medicine
PROC: 02HV33Z Insertion of Infusion Device into Superior Vena Cava, Percutaneous Approach (ICD-10-PCS; principal; 2017-06-16)
DX: M00.9 Pyogenic arthritis, unspecified (principal); M86.8X8 Other osteomyelitis, other site; E11.621 Type 2 diabetes mellitus with foot ulcer; F03.90 Unspecified dementia, unspecified severity, without behavioral disturbance, psychotic disturbance, mood disturbance, and anxiety; Z94.0 Kidney transplant status; J44.9 Chronic obstructive pulmonary disease, unspecified; I10 Essential (primary) hypertension; R22.1 Localized swelling, mass and lump, neck; R22.41 Localized swelling, mass and lump, right lower limb; Z66 Do not resuscitate; K21.9 Gastro-esophageal reflux disease without esophagitis; E11.69 Type 2 diabetes mellitus with other specified complication; F32.9 Major depressive disorder, single episode, unspecified; D17.23 Benign lipomatous neoplasm of skin and subcutaneous tissue of right leg; Z79.4 Long term (current) use of insulin
CPT/HCPCS: 36415-UA; 70543-TC; 71045-TC; 71250-TC; 73560-TC-RT; 76604-TC; 80048-TC; 80053-TC; 80061-TC; 80202-TC; 81001-TC; 81050-TC; 82565-TC; 82607-90; 82728-90; 82746-90; 82948-90; 83036-90; 83540-90; 83550-90; 83605; 83615-TC; 84165-90; 84443-TC; 84484-TC; 84520-TC; 85007-TC; 85025-TC; 85027-TC; 85610-TC; 85652-TC; 85730-TC; 86141-TC; 86334-90; 86480-90; 86635-90; 87086-90; 87230-TC; 89055-TC; 93005; 94760; J0692; J1815; J2405; J3370; J7030; J7040; J7042; Q9967; Z7610